=== PATIENT | female | born 2000 | race Caucasian/White ===

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

== ENCOUNTER 2023-12-19 22:45 | Inpatient (IN) | payer OTHER, MEDICAID, SELFPAY ==
[2023-12-19] VITALS (7 sets, daily range): BP systolic 99–121; BP diastolic 56–78; PULSE 135–181; RESP 18–34; TEMP 39.4; O2SAT 97–100
--- NOTE | 2023-12-19 22:59 | DI.RAD.S_ITS ---
PROCEDURE: XR CHEST 1V INDICATIONS: Eval for pneumonia TECHNIQUE: One view of the chest was acquired. COMPARISON: None. FINDINGS: Surgical changes and devices: None. Lungs and pleura: Lungs are clear. No pleural effusions or pneumothorax. Mediastinum: Mediastinal contours appear normal. Heart size is normal. Bones and chest wall: No suspicious bony lesions. Overlying soft tissues appear unremarkable. IMPRESSION: No acute cardiopulmonary abnormality is seen. Approved by: Rafal Chan M.D. on 12/19/2023 at 22:46
[2023-12-19] MEDS: cefTRIAXone 1,000 MG in SODIUM CHLORIDE 0.9% 100 ML 200 MG IV (23:10)
--- NOTE | 2023-12-19 23:12 | ED.GENADULT ---
HPI - General Adult General Chief complaint: Altered Mental Status Stated complaint: voming since thursday, fever Time Seen by Provider: 12/19/23 22:58 Source: patient and family Mode of arrival: Wheelchair Limitations: no limitations History of Present Illness HPI narrative: Patient is a healthy 23-year-old female. She is unimmunized. She was brought in by her father for evaluation of was initially described as vomiting and a fever for the past 7 days. Prior to that she did spend a period of time camping in [facility]. Upon further questioning it turns out that the patient has been having persistent diarrhea and occasional vomiting but the vomiting has not been persistent. The patient denies headache, sore throat, sinus congestion, chest pain, cough, shortness of breath, abdominal pain, urinary symptoms. She does have a skin rash but is unsure when that started. They have been trying medications at home without improvement of symptoms. The father also reports that over the past 24 hours she is become ?less responsive? and more confused Related Data Allergies Allergy/AdvReac Type Severity Reaction Status Date / Time No Known Drug Allergies Allergy Verified 12/19/23 22:53 Review of Systems Review of Systems ROS Unobtainable: All systems reviewed & are unremarkable except as noted in HPI and below Patient History Social History Smoking Status: Never smoker Smoking Status: Never smoker Substance Use Type: does not use Exam Initial Vital Signs Initial Vital Signs: Vital Signs Temperature 102.9 F H 12/19/23 22:53 Pulse Rate 181 H 12/19/23 22:53 Respiratory Rate 24 12/19/23 22:53 Blood Pressure 104/65 12/19/23 22:53 Pulse Oximetry 98 12/19/23 22:53 Oxygen Delivery Method Room Air 12/19/23 22:53 Const General: cooperative, acute distress and ill appearing [facility] Head: normal to inspection and normocephalic Face and sinus: normal facial exam Mouth: No moist mucous membranes and other (Very dry mucous membranes) Chest Chest: No crepitus and No tenderness Resp Effort & Inspection: not labored, no respiratory distress and tachypneic Auscultation: clear to auscultation bilaterally Cardio Rate: tachycardic Rhythm: regular rhythm GI Inspection: normal to inspection and non-distended Palpation: soft Skin Other: Patient with a macular papular rash located on the face and upper chest and abdomen and upper back. No rash intraoral. No rash on the palms of the hands or soles of the feet. There was no urticaria. No surrounding erythema. No pustules or vesicles. Neuro General: patient alert, patient awake and moves all extremities Speech: speech normal Other: Patient is oriented to person and place but is very slow to answer questions. She does follow commands. Extrem General: capillary refill normal Procedures Lumbar Puncture Time Out Performed: Yes Patient Position: upright Skin Prep: Povidone-Iodine 1% Local Anesthetic: lidocaine 1% Amount of anesthesia used (mL): 4 Spinal Needle Gauge: 20G Interspace Used: L3-L4 Fluid Initially Obtained: clear Complications: none Scores GCS Mando coma scale eye opening: Spontaneous [place] coma scale verbal response: Orientated M[place] coma scale motor response: Obey commands [place] coma scale total score: 15 Course Orders Ordered: ED Orders 12/19/23 22:59 XR chest 1V Stat EKG-12 Lead Stat 12/19/23 23:05 Complete Blood Count AUTO DIFF Stat Comprehensive Metabolic Panel Stat Ethanol (ETOH) Stat Lactate (Lactic Acid) Stat Lipase Stat Test Serum,Qual Stat Procalcitonin Stat 12/19/23 23:10 Blood Culture Stat 12/19/23 23:13 Respiratory Panel (Film Array) Stat 12/19/23 23:26 Rubeola Measles IgG Stat 12/19/23 23:49 Rubella Antibody IgG Stat 12/20/23 00:42 GI Panel (Film Array) Stat 12/20/23 01:23 Urinalysis and Microscopic Stat Urine Culture Stat 12/20/23 02:42 Cell Count w Diff CSF Stat Glucose CSF Stat Meningitis Panel (Film Array) Stat Total Protein CSF Stat 12/20/23 02:58 CSF culture Stat Lactated Ringer's (Lactated Ringers) 1,000 mls @ 150 mls/hr IV CONT ZULMA Last Admin: 12/20/23 03:02 Dose: 150 mls/hr Documented By: HNG Discontinued Medications Sodium Chloride (Normal Saline 0.9%) 1,000 mls @ 1,000 mls/hr IV BOLUS ONE Stop: 12/19/23 23:57 Last Infusion: 12/20/23 00:13 Dose: Infused Documented By: Admin: 12/19/23 23:13 Dose: 1,000 mls/hr Documented By: NASH Acetaminophen (Ofirmev) 1,000 mg in 100 mls @ 400 mls/hr IV NOW ONE Stop: 12/19/23 23:12 Last Infusion: 12/19/23 23:28 Dose: Infused Documented By: Admin: 12/19/23 23:13 Dose: 400 mls/hr Documented By: NASH Ceftriaxone Sodium 1,000 mg/ (Sodium Chloride) 100 mls @ 200 mls/hr IV NOW ONE Stop: 12/19/23 22:59 Last Infusion: 12/19/23 23:27 Dose: Infused Documented By: Admin: 12/19/23 23:10 Dose: 200 mls/hr Documented By: GWEN Vancomycin HCl (Vancomycin) 1,000 mg in 200 mls @ 200 mls/hr IV NOW ONE Stop: 12/20/23 00:02 Last Infusion: 12/20/23 00:36 Dose: Infused Documented By: Admin: 12/19/23 23:28 Dose: 200 mls/hr Documented By: GWEN Sodium Chloride (Normal Saline 0.9%) 1,000 mls @ 1,000 mls/hr IV BOLUS ONE Stop: 12/20/23 00:50 Last Infusion: 12/20/23 00:35 Dose: Infused Documented By: Admin: 12/19/23 23:45 Dose: 1,000 mls/hr Documented By: GWEN Lactated Ringer's (Lactated Ringers) 1,000 mls @ 500 mls/hr IV BOLUS ONE Stop: 12/20/23 02:39 Last Infusion: 12/20/23 03:03 Dose: Infused Documented By: Admin: 12/20/23 01:07 Dose: 500 mls/hr Documented By: GWEN Ketorolac Tromethamine (Ketorolac 30 Mg/Ml Vial) 30 mg IV NOW ONE Stop: 12/20/23 02:49 Last Admin: 12/20/23 02:57 Dose: 30 mg Documented By: KENNEDY Ondansetron HCl (Ondansetron 4 Mg/2 Ml Inj) 4 mg IV NOW ONE Stop: 12/19/23 22:59 Last Admin: 12/19/23 23:13 Dose: 4 mg Documented By: NASH Vital Signs Vital signs: Vital Signs - 8 hr 12/19/23 22:53 12/19/23 23:02 12/19/23 23:02 Temperature 102.9 F H Pulse Rate 181 H 174 H Respiratory Rate 24 Blood Pressure 104/65 107/62 Pulse Oximetry 98 98 Oxygen Delivery Method Room Air 12/19/23 23:10 12/19/23 23:10 12/19/23 23:20 Temperature Pulse Rate 160 H Respiratory Rate 34 H Blood Pressure 121/78 117/71 Pulse Oximetry 97 Oxygen Delivery Method 12/19/23 23:30 12/19/23 23:30 12/19/23 23:40 Temperature Pulse Rate 143 H Respiratory Rate 28 H Blood Pressure 115/63 103/59 L Pulse Oximetry 100 Oxygen Delivery Method 12/19/23 23:40 12/19/23 23:50 12/19/23 23:50 Temperature Pulse Rate 136 H 135 H Respiratory Rate 18 22 Blood Pressure 99/56 L Pulse Oximetry 99 99 Oxygen Delivery Method 12/20/23 00:00 12/20/23 00:00 12/20/23 00:10 Temperature Pulse Rate 128 H 128 H Respiratory Rate 25 H 26 H Blood Pressure 102/59 L Pulse Oximetry 100 100 Oxygen Delivery Method 12/20/23 00:10 12/20/23 00:20 12/20/23 00:20 Temperature Pulse Rate 128 H Respiratory Rate 26 H Blood Pressure 99/55 L 91/55 L Pulse Oximetry 99 Oxygen Delivery Method 12/20/23 00:30 12/20/23 00:30 12/20/23 00:40 Temperature Pulse Rate 127 H 128 H Respiratory Rate 25 H 25 H Blood Pressure 90/54 L Pulse Oximetry 100 100 Oxygen Delivery Method 12/20/23 00:40 12/20/23 00:50 12/20/23 00:50 Temperature Pulse Rate 124 H Respiratory Rate 24 Blood Pressure 88/50 L 96/51 L Pulse Oximetry 100 Oxygen Delivery Method 12/20/23 01:00 12/20/23 01:00 12/20/23 01:10 Temperature Pulse Rate 130 H 128 H Respiratory Rate 24 30 H Blood Pressure 98/53 L Pulse Oximetry 100 99 Oxygen Delivery Method Room Air 12/20/23 01:10 12/20/23 01:20 12/20/23 01:20 Temperature Pulse Rate 125 H Respiratory Rate 16 Blood Pressure 93/55 L 90/53 L Pulse Oximetry 100 Oxygen Delivery Method Room Air 12/20/23 01:30 12/20/23 01:30 12/20/23 01:40 Temperature Pulse Rate 125 H 125 H Respiratory Rate 25 H 24 Blood Pressure 94/50 L Pulse Oximetry 100 100 Oxygen Delivery Method 12/20/23 01:40 12/20/23 01:50 12/20/23 01:50 Temperature Pulse Rate 127 H Respiratory Rate 26 H Blood Pressure 86/51 L 91/54 L Pulse Oximetry 100 Oxygen Delivery Method 12/20/23 02:00 12/20/23 02:00 12/20/23 02:10 Temperature Pulse Rate 125 H 126 H Respiratory Rate 7 L 24 Blood Pressure 98/56 L Pulse Oximetry 100 Oxygen Delivery Method 12/20/23 02:10 12/20/23 02:20 12/20/23 02:20 Temperature Pulse Rate 131 H Respiratory Rate 28 H Blood Pressure 98/58 L 91/53 L Pulse Oximetry 100 Oxygen Delivery Method 12/20/23 02:30 12/20/23 02:40 12/20/23 02:48 Temperature 102.4 F H Pulse Rate Respiratory Rate Blood Pressure 99/63 115/63 Pulse Oximetry Oxygen Delivery Method 12/20/23 02:55 12/20/23 02:55 12/20/23 03:00 Temperature Pulse Rate 141 H 140 H Respiratory Rate 18 20 Blood Pressure 112/62 Pulse Oximetry 97 95 Oxygen Delivery Method 12/20/23 03:01 12/20/23 03:01 12/20/23 03:10 Temperature Pulse Rate 139 H 136 H Respiratory Rate 18 31 H Blood Pressure 99/60 Pulse Oximetry 95 95 Oxygen Delivery Method 12/20/23 03:10 12/20/23 03:20 12/20/23 03:20 Temperature Pulse Rate 134 H Respiratory Rate 27 H Blood Pressure 96/54 L 92/55 L Pulse Oximetry 95 Oxygen Delivery Method 12/20/23 03:30 12/20/23 03:30 12/20/23 03:40 Temperature Pulse Rate 138 H 138 H Respiratory Rate 27 H 30 H Blood Pressure 92/54 L Pulse Oximetry 94 96 Oxygen Delivery Method Room Air 12/20/23 03:40 12/20/23 03:45 12/20/23 03:50 Temperature 102.7 F H Pulse Rate Respiratory Rate Blood Pressure 85/48 L 93/52 L Pulse Oximetry Oxygen Delivery Method 12/20/23 03:50 12/20/23 04:00 12/20/23 04:00 Temperature Pulse Rate 149 H 140 H Respiratory Rate 33 H 28 H Blood Pressure 87/50 L Pulse Oximetry 98 96 Oxygen Delivery Method 12/20/23 04:10 12/20/23 04:10 12/20/23 04:20 Temperature Pulse Rate 129 H 129 H Respiratory Rate 23 24 Blood Pressure 88/49 L Pulse Oximetry 95 95 Oxygen Delivery Method 12/20/23 04:20 12/20/23 04:30 12/20/23 04:30 Temperature Pulse Rate 127 H Respiratory Rate 22 Blood Pressure 93/52 L 96/52 L Pulse Oximetry 94 Oxygen Delivery Method 12/20/23 04:40 12/20/23 04:40 12/20/23 04:50 Temperature Pulse Rate 127 H 126 H Respiratory Rate 22 22 Blood Pressure 96/55 L Pulse Oximetry 94 96 Oxygen Delivery Method 12/20/23 04:50 12/20/23 04:51 12/20/23 04:51 Temperature 100.9 F H Pulse Rate 131 H Respiratory Rate 25 H Blood Pressure 79/43 L 87/51 L Pulse Oximetry 97 Oxygen Delivery Method 12/20/23 05:00 12/20/23 05:00 12/20/23 05:10 Temperature Pulse Rate 125 H 125 H Respiratory Rate 22 22 Blood Pressure 90/54 L Pulse Oximetry 96 95 Oxygen Delivery Method 12/20/23 05:10 Temperature Pulse Rate Respiratory Rate Blood Pressure 91/55 L Pulse Oximetry Oxygen Delivery Method Medical Decision Making Lab Data Lab results reviewed: Yes I reviewed the patient's lab results. 12/19/23 23:05 12/19/23 23:05 Labs: Lab Results 12/19/23 12/19/23 12/20/23 Range/Units 23:05 23:13 00:40 WBC 20.1 H (4.5-11.0) X10^3/uL RBC 4.43 (4.0-5.2) X10^6/uL Hgb 9.9 L (12.0-16.0) g/dL Hct 31.1 L (36-46) % MCV 70.1 L (80-100) fL MCH 22.4 L (26-34) PG MCHC 31.9 (30-36) % RDW 18.1 H (11.6-14.8) % Plt Count 235 (150-400) X10^3/uL Neut % (Auto) Not Reportable Lymph % (Auto) Not Reportable [place] % (Auto) Not Reportable Eos % (Auto) Not Reportable Baso % (Auto) Not Reportable Lymph # (Auto) Not Reportable [place] # (Auto) Not Reportable Baso # (Auto) Not Reportable Total Counted 100 Seg Neutrophils % 75.0 H (38-70) % Band Neutrophils % 17.0 H (3-7) % Lymphocytes % (Manual) 6.0 L (25-45) % Monocytes % (Manual) 1.0 L (2-11) % Metamyelocytes % 1.0 H (-0) % Neutrophils # (Manual) 36911 H (7970-4795) /uL RBC Morphology See below Hypochromasia 1+ H Anisocytosis 2+ H Microcytosis 2+ H Sodium 128 L (137-145) mmol/L Potassium 3.3 L (3.4-5.1) mmol/L Chloride 96 L (98-107) mmol/L Carbon Dioxide 13 L (22-32) mmol/L BUN 38 H (7-17) mg/dL Creatinine 1.48 H (0.52-1.04) mg/dL Estimated GFR 51 L (>60) mL/min BUN/Creatinine Ratio 25.7 H (6-22) Glucose 143 H (70-100) mg/dL Lactate 3.3 H (0.7-2.1) mmol/L Calcium 9.4 (8.4-10.2) mg/dL Total Bilirubin 0.7 (0.2-1.3) mg/dL AST 37 H (14-36) IU/L ALT 34 (<35) IU/L Alkaline Phosphatase 79 (38-126) U/L Total Protein 10.1 H (6.3-8.2) g/dL Albumin 4.1 (3.5-5.0) g/dL Globulin 6.0 H (1.7-4.1) g/dL Albumin/Globulin Ratio 0.7 L (1.0-2.8) Lipase 26 (23-300) U/L Procalcitonin 39.5 H (<0.5) ng/mL Serum , Qual Negative (Negative) Urine Color Urine Appearance Urine pH (4.5-8.0) Ur Specific Thur[place] (1.000-1.035) Urine Protein (Negative) Urine Glucose (UA) (Negative) g/dL Urine Ketones (NEGATIVE) Urine Occult Blood (Negative) Urine Nitrate (Negative) Urine Bilirubin (NEGATIVE) Ur Bilirubin Confirm (Negative) Urine Urobilinogen (0.2) E.U./dL Ur Leukocyte Esterase (NEGATIVE) Urine RBC (0-5/HPF) Urine WBC (0-5/HPF) Ur Squamous Epith Cells (0-5/HPF) Ur Transition Epith Cell (0-5/HPF) Amorphous Sediment Urine Bacteria (None) Hyaline Casts (None) Granular Casts (None) Urine Mucus (Negative) Vol Urine Centrifuged CSF Tube Number CSF Volume CSF Appearance (Clear) CSF Color (Colorless) CSF WBC (0-5) MONO/uL CSF RBC RBC /uL CSF Mononuclear WBCs CSF Polynuclear WBCs CSF Glucose (40-70) mg/dL CSF Total Protein (12-60) mg/dL CSF C.neoform/gat PCR (Not Detect) CSF CMV DNA (PCR) (Not Detect) CSF Enterovirus (PCR) (Not Detect) CSF E. coli (PCR) (Not Detect) CSF H. influenzae (PCR) (Not Detect) CSF HSV I (PCR) (Not Detect) CSF HSV II (PCR) (Not Detect) CSF HHV 6 (PCR) (Not Detect) CSF L.monocytogenes PCR (Not Detect) CSF N. meningitidis PCR (Not Detect) CSF Parechovirus (PCR) (Not Detect) CSF S. agalactiae (PCR) (Not Detect) CSF S. pneumoniae (PCR) (Not Detect) CSF VZV (PCR) (Not Detecte) Stl C. cayetanensis PCR Not detected (Not Detect) Stool Rotavirus (PCR) Not detected (Not Detect) Stool Adenovirus (PCR) Not detected (Not Detect) Stool Astrovirus (PCR) Not detected (Not Detect) Stool Cryptosporidium PCR Not detected (Not Detect) Stl E.coli Shiga Tox PCR Not detected (Not Detect) St Sh/Enteroin Ecoli PCR Not detected (Not Detect) Stl Enterotoxigenic E PCR Not detected (Not Detect) Stool EPEC (PCR) Not detected (Not Detect) Stl E. histolytica PCR Not detected (Not Detect) Stool Giardia Lamblia PCR Not detected (Not Detect) Stool Sapovirus (PCR) Not detected (Not Detect) Stl P. shigelloides PCR Not detected (Not Detect) St Y.enterocolitica PCR Not detected (Not Detect) Stool Vibrio (PCR) Not detected (Not Detect) Stl Vibrio cholerae PCR Not detected (Not Detect) Stl Enteroaggr Ecoli PCR Not detected (Not Detect) Stl Norovirus GI/GII PCR Not detected (Not Detect) Ethyl Alcohol < 10 ( - 10) mg/dL Chlamy pneumoniae PCR Not detected (Not Detect) Adenovirus (PCR) Not detected (Not Detect) B.parapertussis DNA PCR Not detected (Not Detecte) Campylobacter (PCR) Not detected (Not Detect) C. difficile Tox (PCR) Not detected (Not Detect) Coronavirus OC43 (PCR) Not detected (Not Detect) Coronavirus HKU1 (PCR) Not detected (Not Detect) Coronavirus 229E (PCR) Not detected (Not Detect) SARS-CoV-2 (PCR) Not detected (Not Detecte) Coronavirus NL63 (PCR) Not detected (Not Detect) Human Metapneumovir PCR Not detected (Not Detect) Influenza Type A (PCR) Not detected (Not Detect) Influenza Type B (PCR) Not detected (Not Detect) M. pneumoniae (PCR) Not detected (Not Detect) Parainfluenza 1 (PCR) Not detected (Not Detect) Parainfluenza 2 (PCR) Not detected (Not Detect) Parainfluenza 3 (PCR) Not detected (Not Detect) Parainfluenza 4 (PCR) Not detected (Not Detect) RSV (PCR) Not detected (Not Detect) Entero/Rhino (PCR) Not detected (Not Detect) Rubella Antibody 0.7 L (>15) IU/mL Salmonella (PCR) Not detected (Not Detect) 12/20/23 12/20/23 12/20/23 Range/Units 01:15 01:20 02:40 WBC (4.5-11.0) X10^3/uL RBC (4.0-5.2) X10^6/uL Hgb (12.0-16.0) g/dL Hct (36-46) % MCV (80-100) fL MCH (26-34) PG MCHC (30-36) % RDW (11.6-14.8) % Plt Count (150-400) X10^3/uL Neut % (Auto) Lymph % (Auto) [place] % (Auto) Eos % (Auto) Baso % (Auto) Lymph # (Auto) [place] # (Auto) Baso # (Auto) Total Counted Seg Neutrophils % (38-70) % Band Neutrophils % (3-7) % Lymphocytes % (Manual) (25-45) % Monocytes % (Manual) (2-11) % Metamyelocytes % (-0) % Neutrophils # (Manual) (6894-6643) /uL RBC Morphology Hypochromasia Anisocytosis Microcytosis Sodium (137-145) mmol/L Potassium (3.4-5.1) mmol/L Chloride (98-107) mmol/L Carbon Dioxide (22-32) mmol/L BUN (7-17) mg/dL Creatinine (0.52-1.04) mg/dL Estimated GFR (>60) mL/min BUN/Creatinine Ratio (6-22) Glucose (70-100) mg/dL Lactate 2.3 H (0.7-2.1) mmol/L Calcium (8.4-10.2) mg/dL Total Bilirubin (0.2-1.3) mg/dL AST (14-36) IU/L ALT (<35) IU/L Alkaline Phosphatase (38-126) U/L Total Protein (6.3-8.2) g/dL Albumin (3.5-5.0) g/dL Globulin (1.7-4.1) g/dL Albumin/Globulin Ratio (1.0-2.8) Lipase (23-300) U/L Procalcitonin (<0.5) ng/mL Serum , Qual (Negative) Urine Color Yellow Urine Appearance Sl cloudy Urine pH 5.5 (4.5-8.0) Ur Specific [place] >=1.030 H (1.000-1.035) Urine Protein 3+ H (Negative) Urine Glucose (UA) Negative (Negative) g/dL Urine Ketones Negative (NEGATIVE) Urine Occult Blood Trace-intact (Negative) Urine Nitrate Negative (Negative) Urine Bilirubin 1+ H (NEGATIVE) Ur Bilirubin Confirm Negative (Negative) Urine Urobilinogen 0.2 (0.2) E.U./dL Ur Leukocyte Esterase Negative (NEGATIVE) Urine RBC 0-1/hpf (0-5/HPF) Urine WBC 0-1/hpf (0-5/HPF) Ur Squamous Epith Cells 0-1 /hpf (0-5/HPF) Ur Transition Epith Cell 0-1/hpf (0-5/HPF) Amorphous Sediment 3+ Urine Bacteria Few (2-10) H (None) Hyaline Casts 0-1/lpf (None) Granular Casts 1-5/lpf (None) Urine Mucus 1+ H (Negative) Vol Urine Centrifuged 10ml (spun) CSF Tube Number 3 CSF Volume 1.5 ml CSF Appearance Clear (Clear) CSF Color Colorless (Colorless) CSF WBC 1.0 (0-5) MONO/uL CSF RBC 3 RBC /uL CSF Mononuclear WBCs TNP CSF Polynuclear WBCs TNP CSF Glucose 62 (40-70) mg/dL CSF Total Protein 37 (12-60) mg/dL CSF C.neoform/gat PCR Not detected (Not Detect) CSF CMV DNA (PCR) Not detected (Not Detect) CSF Enterovirus (PCR) Not detected (Not Detect) CSF E. coli (PCR) Not detected (Not Detect) CSF H. influenzae (PCR) Not detected (Not Detect) CSF HSV I (PCR) Not detected (Not Detect) CSF HSV II (PCR) Not detected (Not Detect) CSF HHV 6 (PCR) Not detected (Not Detect) CSF L.monocytogenes PCR Not detected (Not Detect) CSF N. meningitidis PCR Not detected (Not Detect) CSF Parechovirus (PCR) Not detected (Not Detect) CSF S. agalactiae (PCR) Not detected (Not Detect) CSF S. pneumoniae (PCR) Not detected (Not Detect) CSF VZV (PCR) Not detected (Not Detecte) Stl C. cayetanensis PCR (Not Detect) Stool Rotavirus (PCR) (Not Detect) Stool Adenovirus (PCR) (Not Detect) Stool Astrovirus (PCR) (Not Detect) Stool Cryptosporidium PCR (Not Detect) Stl E.coli Shiga Tox PCR (Not Detect) St Sh/Enteroin Ecoli PCR (Not Detect) Stl Enterotoxigenic E PCR (Not Detect) Stool EPEC (PCR) (Not Detect) Stl E. histolytica PCR (Not Detect) Stool Giardia Lamblia PCR (Not Detect) Stool Sapovirus (PCR) (Not Detect) Stl P. shigelloides PCR (Not Detect) St Y.enterocolitica PCR (Not Detect) Stool Vibrio (PCR) (Not Detect) Stl Vibrio cholerae PCR (Not Detect) Stl Enteroaggr Ecoli PCR (Not Detect) Stl Norovirus GI/GII PCR (Not Detect) Ethyl Alcohol ( - 10) mg/dL Chlamy pneumoniae PCR (Not Detect) Adenovirus (PCR) (Not Detect) B.parapertussis DNA PCR (Not Detecte) Campylobacter (PCR) (Not Detect) C. difficile Tox (PCR) (Not Detect) Coronavirus OC43 (PCR) (Not Detect) Coronavirus HKU1 (PCR) (Not Detect) Coronavirus 229E (PCR) (Not Detect) SARS-CoV-2 (PCR) (Not Detecte) Coronavirus NL63 (PCR) (Not Detect) Human Metapneumovir PCR (Not Detect) Influenza Type A (PCR) (Not Detect) Influenza Type B (PCR) (Not Detect) M. pneumoniae (PCR) (Not Detect) Parainfluenza 1 (PCR) (Not Detect) Parainfluenza 2 (PCR) (Not Detect) Parainfluenza 3 (PCR) (Not Detect) Parainfluenza 4 (PCR) (Not Detect) RSV (PCR) (Not Detect) Entero/Rhino (PCR) (Not Detect) Rubella Antibody (>15) IU/mL Salmonella (PCR) (Not Detect) Imaging Data Chest x-ray: Radiologist's Impression: PROCEDURE: XR CHEST 1V INDICATIONS: Eval for pneumonia TECHNIQUE: One view of the chest was acquired. COMPARISON: None. FINDINGS: Surgical changes and devices: None. Lungs and pleura: Lungs are clear. No pleural effusions or pneumothorax. Mediastinum: Mediastinal contours appear normal. Heart size is normal. Bones and chest wall: No suspicious bony lesions. Overlying soft tissues appear unremarkable. IMPRESSION: No acute cardiopulmonary abnormality is seen. ECG Data Attestation: I personally reviewed and interpreted this ECG as follows: Interpretation: Sinus tachycardia Ventricular rate of 148 Normal axis Normal QRS Normal QTC No ST T wave changes MDM Narrative Medical decision making narrative: Patient looked very poor upon arrival. She was obviously confused upon arrival. Has a rash on her face and upper chest. She really has no specific complaints upon questioning however it appears that she has had persistent diarrhea and some vomiting for the past week or so. Her chest x-ray does not show signs of pneumonia. Respiratory panel was negative. She was no abdominal pain so my concern for an intra-abdominal surgical issue is low. Her urinalysis is not consistent with UTI. Her stool sample show no infections. Had a discussion with her and her father regarding the concerns about meningitis given her unimmunized status. The lumbar puncture/CSF is not consistent with meningitis. Considered other etiologies such as measles given the rash that she was having in the fevers however she does not have other specific symptoms such as other your eye symptoms/conjunctivitis. She was given antibiotics upon arrival. Fluids were administered upon arrival. Her heart rate improved. Her mentation improved. She does have an elevation in her creatinine and I suspect a significant degree of dehydration. She was tolerating oral intake. After fluids and antibiotics and time she remained febrile but her mentation improved. Blood pressure has been somewhat soft with a systolic blood pressures in the 80s and 90s but her mean arterial pressures have been in the mid 60s. We will hold on pressors for now given that she was clinically improving. Critical Care Time Critical Care Time Critical Care Time: Yes Total Critical Care Time: 65 Attestation: The high probability of a clinically significant, sudden or life threatening deterioration of the [neurologic, cardiovascular, respiratory] system(s) required my full and direct attention, intervention and personal management. The aggregate critical care time was [65] minutes. This time is in addition to time spent performing reported procedures but includes the following: [x] Data Review and interpretation [x] Patient assessment and monitoring of vital signs [x] Documentation [x] Medication orders and management Discharge Plan Departure Patient Disposition: Admitted As Inpatient Clinical Impression: Fever of unknown origin, Rash, Dehydration, Acute kidney injury, Tachycardia Admit Date/Time: 12/20/23 05:13 Admit Provider: Khanh Tam
[2023-12-19] MEDS: SODIUM CHLORIDE 0.9% 1,000 ML 1000 ML IV ×2 (23:13→23:45)
[2023-12-19] MEDS: ONDANSETRON 4 MG/2 ML INJ IV (23:13)
[2023-12-19] MEDS: ACETAMINOPHEN IV 1,000 MG/100 ML VIAL 400 MG IV (23:13)
--- NOTE | 2023-12-19 23:25 | EKG_ITS ---
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
[2023-12-19] MEDS: VANCOMYCIN 1,000 MG/200 ML PIGGYBACK 200 MG IV (23:28)
[2023-12-19 23:32] LABS: Hematocrit 31.1 % (36-46); Hemoglobin 9.9 g/dL (12.0-16.0); Mean Corpuscular HGB Conc 31.9 % (30-36); Mean Corpuscular Hemoglobin 22.4 PG (26-34); Mean Corpuscular Volume 70.1 fL (80-100); Platelet Count 235 X10^3/uL (150-400); Pregnancy Test Serum,Qual Negative (Negative); Red Blood Cell Count 4.43 X10^6/uL (4.0-5.2); Red Cell Distribution Width 18.1 % (11.6-14.8); White Blood Cell Count 20.1 X10^3/uL (4.5-11.0)
[2023-12-19 23:33] LABS: Add Manual Diff / Slide Review YES
[2023-12-19 23:35] LABS: Alanine Aminotransferase 34 IU/L (<35); Albumin 4.1 g/dL (3.5-5.0); Albumin Globulin Ratio 0.7 (1.0-2.8); Alkaline Phosphatase 79 U/L (38-126); Aspartate Aminotransferase 37 IU/L (14-36); BUN Creatinine Ratio 25.7 (6-22); Bilirubin Total 0.7 mg/dL (0.2-1.3); Blood Urea Nitrogen 38 mg/dL (7-17); Calcium 9.4 mg/dL (8.4-10.2); Carbon Dioxide 13 mmol/L (22-32); Chloride 96 mmol/L (98-107); Estimated Glomerular Filt Rate 51 mL/min (>60); Ethanol (ETOH) < 10 mg/dL; Glucose 143 mg/dL (70-100); HEMOLYSIS < 15 (0-50); Lactate (Lactic Acid) 3.3 mmol/L (0.7-2.1); Lipase 26 U/L (23-300); Potassium 3.3 mmol/L (3.4-5.1); Sodium 128 mmol/L (137-145); Total Protein 10.1 g/dL (6.3-8.2)
[2023-12-19 23:50] LABS: Procalcitonin 39.5 ng/mL (<0.5)
[2023-12-20] VITALS (203 sets, daily range): BP systolic 72–123; BP diastolic 38–63; PULSE 119–156; RESP 7–42; TEMP 38.1–39.9; O2SAT 79–100; BMI 24.4
[2023-12-20] LABS: Anisocytosis 2+; Hypochromasia 1+; Microcytosis 2+; Neutrophils Absolute Manual 18492 /uL (3000-5900); Total Cells Counted 100
[2023-12-20 00:09] LABS: Adenovirus Not Detected (Not Detect); B. parapertussis Not Detected (Not Detecte); Bordetella pertussis Not Detected (Not Detect); Chlamydophila pneumoniae Not Detected (Not Detect); Coronavirus 229E Not Detected (Not Detect); Coronavirus HKU1 Not Detected (Not Detect); Coronavirus NL 63 Not Detected (Not Detect); Coronavirus OC43 Not Detected (Not Detect); Human Metapneumovirus Not Detected (Not Detect); Human Rhinovirus/Enterovirus Not Detected (Not Detect); Influenza A Not Detected (Not Detect); Influenza B Not Detected (Not Detect); Mycoplasma pneumoniae Not Detected (Not Detect); Parainfluenza Virus 1 Not Detected (Not Detect); Parainfluenza Virus 2 Not Detected (Not Detect); Parainfluenza Virus 3 Not Detected (Not Detect); Parainfluenza Virus 4 Not Detected (Not Detect); Respiratory Syncytial Virus Not Detected (Not Detect); SARS- CoV-2 Not Detected (Not Detecte)
[2023-12-20 00:49] LABS: Reflexed Lactate in 2 Hours Y
[2023-12-20] MEDS: LACTATED RINGERS 1,000 ML 500 ML IV (01:07)
[2023-12-20 01:16] LABS: Rubella Antibody IgG 0.7 IU/mL (>15)
[2023-12-20 01:32] LABS: Appearance Urine UA SL CLOUDY; Bilirubin Urine UA 1+ (NEGATIVE); Color Urine UA YELLOW; Glucose Urine UA NEGATIVE (Negative); Ketones Urine UA NEGATIVE (NEGATIVE); Leukocyte Esterase Urine UA NEGATIVE (NEGATIVE); Nitrite Urine UA NEGATIVE (Negative); Occult Blood Urine UA TRACE-INTACT (Negative); Protein Urine UA 3+ (Negative); Specific Gravity Urine UA >=1.030 (1.000-1.035); Urobilinogen Urine UA 0.2 E.U./dL (0.2)
[2023-12-20 01:34] LABS: pH Urine UA 5.5 (4.5-8.0)
[2023-12-20 01:35] LABS: Ictotest Urine Negative (Negative); RBC Urine 0-1/HPF (0-5/HPF); Urine Volume 10mL (spun)
[2023-12-20 01:36] LABS: Bacteria Urine Few (2-10); WBC Urine 0-1/HPF (0-5/HPF)
[2023-12-20 01:37] LABS: Amorphous Sediment Urine 3+; Granular Casts Urine 1-5/LPF; Mucus Urine 1+ (Negative); Squamous Epithelial Cell Urine 0-1 /HPF (0-5/HPF); Transitional Epi Cells Urine 0-1/HPF (0-5/HPF)
[2023-12-20 01:39] LABS: Hyaline Casts Urine 0-1/LPF
[2023-12-20 01:51] LABS: Lactate 2HR (Lactic Acid Rflx) 2.3 mmol/L (0.7-2.1)
[2023-12-20 02:00] LABS: Adenovirus F 40/41 Not Detected (Not Detect); Astrovirus Not Detected (Not Detect); Campylobacter Not Detected (Not Detect); Clostridium difficile toxin AB Not Detected (Not Detect); Cryptosporidium Not Detected (Not Detect); Cyclospora cayetanensis Not Detected (Not Detect); Entamoeba histolytica Not Detected (Not Detect); Enteroaggregative E.coli Not Detected (Not Detect); Enteropathogenic E.coli Not Detected (Not Detect); Enterotoxigenic E.coli It/st Not Detected (Not Detect); Giardia lamblia Not Detected (Not Detect); Norovirus GI/GII Not Detected (Not Detect); Plesiomonsa shigelloides Not Detected (Not Detect); Rotavirus A Not Detected (Not Detect); Salmonella Not Detected (Not Detect); Sapovirus Not Detected (Not Detect); Shiga-like toxin-prod E.coli Not Detected (Not Detect); Shigella/Enteroinvasive E.coli Not Detected (Not Detect); Vibrio Not Detected (Not Detect); Vibrio cholerae Not Detected (Not Detect); Yersinia enterocolitica Not Detected (Not Detect)
[2023-12-20] MEDS: KETOROLAC 30 MG/ML VIAL IV (02:57)
[2023-12-20] MEDS: LACTATED RINGERS 1,000 ML 150 ML IV (03:02)
[2023-12-20 03:19] LABS: Appearance CSF Clear (Clear); CSF Tube Number 3; CSF Tube Volume 1.5 mL; Color CSF Colorless (Colorless); Red Blood Cell CSF 3 RBC /uL
[2023-12-20 03:20] LABS: Glucose CSF 62 mg/dL (40-70); Total Protein CSF 37 mg/dL (12-60)
[2023-12-20 04:12] LABS: Cryptococcus neoformans/gattii Not Detected (Not Detect); Enterovirus Not Detected (Not Detect); Escherichia coli K1 Not Detected (Not Detect); Haemophilus influenzae Not Detected (Not Detect); Herpes simplex virus 1 Not Detected (Not Detect); Herpes simplex virus 2 Not Detected (Not Detect); Human herpesvirus 6 Not Detected (Not Detect); Human parechovirus Not Detected (Not Detect); Listeria monocytogenes Not Detected (Not Detect); Neisseria meningitidis Not Detected (Not Detect); Streptococcus agalactiae Not Detected (Not Detect); Streptococcus pneumoniae Not Detected (Not Detect); Varicella Zoster Virus Not Detected (Not Detecte)
[2023-12-20 07:22] LABS: Creatine Kinase 254 U/L (30-135)
--- NOTE | 2023-12-20 07:43 | P.HP_ITS ---
History of Present Illness History of Present Illness Date Patient Seen: 12/20/23 Chief complaint: voming since thursday, fever Narrative: 23 y/o with PMH of Mixed Connective Tissue Disease, presented to ED dehydrated, with YING, lekocytosis, maculopapular rash, hypotensive and tachycardic after she became confused and developed diarrhea. Last week she took a trip to [facility] and rash appeared few days ago. Extensive ED workup, including LP, non- revealing. Stool studies, viral panel, CXR, UA all WNR. She complained on Rt elbow tenderness and swelling on admission and dry throat.She also has a lot of dental cavities. Started on antibiotics and IVFs and admitted to ICU [facility] Medical History (Updated 12/20/23 @ 07:56 by Khanh Manzanares MD) Mixed connective tissue disease Social History Smoking Status: Never smoker Meds Home Medications and Allergies Allergies Allergy/AdvReac Type Severity Reaction Status Date / Time No Known Drug Allergies Allergy Verified 12/19/23 22:53 Review of Systems Review of Systems Narrative: Patient was not very good historian, likely due to encephalopathy She complained on dry throat, right elbow swelling and tenderness, rash, diarrhea Exam Vital Signs (past 8 hours): - 12/19/23 23:50 12/19/23 23:50 12/20/23 00:00 Temperature Pulse Rate 135 H 128 H Respiratory Rate 22 25 H Blood Pressure 99/56 L Pulse Oximetry 99 100 Oxygen Delivery Method 12/20/23 00:00 12/20/23 00:10 12/20/23 00:10 Temperature Pulse Rate 128 H Respiratory Rate 26 H Blood Pressure 102/59 L 99/55 L Pulse Oximetry 100 Oxygen Delivery Method 12/20/23 00:20 12/20/23 00:20 12/20/23 00:30 Temperature Pulse Rate 128 H 127 H Respiratory Rate 26 H 25 H Blood Pressure 91/55 L Pulse Oximetry 99 100 Oxygen Delivery Method 12/20/23 00:30 12/20/23 00:40 12/20/23 00:40 Temperature Pulse Rate 128 H Respiratory Rate 25 H Blood Pressure 90/54 L 88/50 L Pulse Oximetry 100 Oxygen Delivery Method 12/20/23 00:50 12/20/23 00:50 12/20/23 01:00 Temperature Pulse Rate 124 H 130 H Respiratory Rate 24 24 Blood Pressure 96/51 L Pulse Oximetry 100 100 Oxygen Delivery Method 12/20/23 01:00 12/20/23 01:10 12/20/23 01:10 Temperature Pulse Rate 128 H Respiratory Rate 30 H Blood Pressure 98/53 L 93/55 L Pulse Oximetry 99 Oxygen Delivery Method Room Air 12/20/23 01:20 12/20/23 01:20 12/20/23 01:30 Temperature Pulse Rate 125 H 125 H Respiratory Rate 16 25 H Blood Pressure 90/53 L Pulse Oximetry 100 100 Oxygen Delivery Method Room Air 12/20/23 01:30 12/20/23 01:40 12/20/23 01:40 Temperature Pulse Rate 125 H Respiratory Rate 24 Blood Pressure 94/50 L 86/51 L Pulse Oximetry 100 Oxygen Delivery Method 12/20/23 01:50 12/20/23 01:50 12/20/23 02:00 Temperature Pulse Rate 127 H 125 H Respiratory Rate 26 H 7 L Blood Pressure 91/54 L Pulse Oximetry 100 100 Oxygen Delivery Method 12/20/23 02:00 12/20/23 02:10 12/20/23 02:10 Temperature Pulse Rate 126 H Respiratory Rate 24 Blood Pressure 98/56 L 98/58 L Pulse Oximetry Oxygen Delivery Method 12/20/23 02:20 12/20/23 02:20 12/20/23 02:30 Temperature Pulse Rate 131 H Respiratory Rate 28 H Blood Pressure 91/53 L 99/63 Pulse Oximetry 100 Oxygen Delivery Method 12/20/23 02:40 12/20/23 02:48 12/20/23 02:55 Temperature 102.4 F H Pulse Rate 141 H Respiratory Rate 18 Blood Pressure 115/63 Pulse Oximetry 97 Oxygen Delivery Method 12/20/23 02:55 12/20/23 03:00 12/20/23 03:01 Temperature Pulse Rate 140 H Respiratory Rate 20 Blood Pressure 112/62 99/60 Pulse Oximetry 95 Oxygen Delivery Method 12/20/23 03:01 12/20/23 03:10 12/20/23 03:10 Temperature Pulse Rate 139 H 136 H Respiratory Rate 18 31 H Blood Pressure 96/54 L Pulse Oximetry 95 95 Oxygen Delivery Method 12/20/23 03:20 12/20/23 03:20 12/20/23 03:30 Temperature Pulse Rate 134 H 138 H Respiratory Rate 27 H 27 H Blood Pressure 92/55 L Pulse Oximetry 95 94 Oxygen Delivery Method Room Air 12/20/23 03:30 12/20/23 03:40 12/20/23 03:40 Temperature Pulse Rate 138 H Respiratory Rate 30 H Blood Pressure 92/54 L 85/48 L Pulse Oximetry 96 Oxygen Delivery Method 12/20/23 03:45 12/20/23 03:50 12/20/23 03:50 Temperature 102.7 F H Pulse Rate 149 H Respiratory Rate 33 H Blood Pressure 93/52 L Pulse Oximetry 98 Oxygen Delivery Method 12/20/23 04:00 12/20/23 04:00 12/20/23 04:10 Temperature Pulse Rate 140 H 129 H Respiratory Rate 28 H 23 Blood Pressure 87/50 L Pulse Oximetry 96 95 Oxygen Delivery Method 12/20/23 04:10 12/20/23 04:20 12/20/23 04:20 Temperature Pulse Rate 129 H Respiratory Rate 24 Blood Pressure 88/49 L 93/52 L Pulse Oximetry 95 Oxygen Delivery Method 12/20/23 04:30 12/20/23 04:30 12/20/23 04:40 Temperature Pulse Rate 127 H Respiratory Rate 22 Blood Pressure 96/52 L 96/55 L Pulse Oximetry 94 Oxygen Delivery Method 12/20/23 04:40 12/20/23 04:50 12/20/23 04:50 Temperature Pulse Rate 127 H 126 H Respiratory Rate 22 22 Blood Pressure 79/43 L Pulse Oximetry 94 96 Oxygen Delivery Method 12/20/23 04:51 12/20/23 04:51 12/20/23 05:00 Temperature 100.9 F H Pulse Rate 131 H 125 H Respiratory Rate 25 H 22 Blood Pressure 87/51 L Pulse Oximetry 97 96 Oxygen Delivery Method 12/20/23 05:00 12/20/23 05:10 12/20/23 05:10 Temperature Pulse Rate 125 H Respiratory Rate 22 Blood Pressure 90/54 L 91/55 L Pulse Oximetry 95 Oxygen Delivery Method 12/20/23 05:20 12/20/23 05:20 12/20/23 05:30 Temperature Pulse Rate 128 H 126 H Respiratory Rate 21 21 Blood Pressure 89/50 L Pulse Oximetry 96 95 Oxygen Delivery Method 12/20/23 05:30 12/20/23 05:40 12/20/23 05:40 Temperature Pulse Rate 128 H Respiratory Rate 22 Blood Pressure 92/50 L 88/53 L Pulse Oximetry 95 Oxygen Delivery Method 12/20/23 05:50 12/20/23 05:50 12/20/23 05:52 Temperature Pulse Rate 129 H 130 H Respiratory Rate 23 25 H Blood Pressure 76/40 L Pulse Oximetry 96 96 Oxygen Delivery Method 12/20/23 05:52 12/20/23 06:00 12/20/23 06:00 Temperature Pulse Rate 128 H Respiratory Rate 23 Blood Pressure 81/48 L 75/40 L Pulse Oximetry 96 Oxygen Delivery Method 12/20/23 06:09 12/20/23 06:10 12/20/23 06:10 Temperature Pulse Rate 130 H 130 H Respiratory Rate 25 H 24 Blood Pressure 79/47 L Pulse Oximetry 96 96 Oxygen Delivery Method 12/20/23 06:12 12/20/23 06:12 12/20/23 06:20 Temperature Pulse Rate 130 H Respiratory Rate 24 Blood Pressure 80/46 L 104/55 L Pulse Oximetry 96 Oxygen Delivery Method 12/20/23 06:20 12/20/23 06:30 12/20/23 06:30 Temperature Pulse Rate 150 H 136 H Respiratory Rate 18 31 H Blood Pressure 89/53 L Pulse Oximetry 95 95 Oxygen Delivery Method Oxygen Delivery Method Room Air Const Other: in no distress, father at bedside HENMT Other: normocephalic Oropharynx dry but not erythematous Eyes Other: eomi, w/o conjuctivitis Neck Other: supple Resp Other: poor respiratory effort Cardio Other: tachycardic, regular GI Other: abdomen soft, not tender, not distended Skin Other: maculopapular rash on trunk Neuro Other: w/o deficits Extrem Other: mild swelling and tenderness of Rt elbow with ROMs Psych Other: encephalopathic Objective Labs 12/19/23 23:05 12/19/23 23:05 Labs: Laboratory Results - last 24 hr 12/19/23 12/19/23 12/19/23 23:00 23:05 23:13 WBC 20.1 H RBC 4.43 Hgb 9.9 L Hct 31.1 L MCV 70.1 L MCH 22.4 L MCHC 31.9 RDW 18.1 H Plt Count 235 Neut % (Auto) Not Reportable Lymph % (Auto) Not Reportable Sabine % (Auto) Not Reportable Eos % (Auto) Not Reportable Baso % (Auto) Not Reportable Lymph # (Auto) Not Reportable Sabine # (Auto) Not Reportable Baso # (Auto) Not Reportable Total Counted 100 Seg Neutrophils % 75.0 H Band Neutrophils % 17.0 H Lymphocytes % (Manual) 6.0 L Monocytes % (Manual) 1.0 L Metamyelocytes % 1.0 H Neutrophils # (Manual) 56032 H RBC Morphology See below Hypochromasia 1+ H Anisocytosis 2+ H Microcytosis 2+ H Sodium 128 L Potassium 3.3 L Chloride 96 L Carbon Dioxide 13 L BUN 38 H Creatinine 1.48 H Estimated GFR 51 L BUN/Creatinine Ratio 25.7 H Glucose 143 H Lactate 3.3 H Calcium 9.4 Total Bilirubin 0.7 AST 37 H ALT 34 Alkaline Phosphatase 79 Total Creatine Kinase 254 H Total Protein 10.1 H Albumin 4.1 Globulin 6.0 H Albumin/Globulin Ratio 0.7 L Lipase 26 Procalcitonin 39.5 H Serum , Qual Negative Urine Color Urine Appearance Urine pH Ur Specific Chauncey Urine Protein Urine Glucose (UA) Urine Ketones Urine Occult Blood Urine Nitrate Urine Bilirubin Ur Bilirubin Confirm Urine Urobilinogen Ur Leukocyte Esterase Urine RBC Urine WBC Ur Squamous Epith Cells Ur Transition Epith Cell Amorphous Sediment Urine Bacteria Hyaline Casts Granular Casts Urine Mucus Vol Urine Centrifuged CSF Tube Number CSF Volume CSF Appearance CSF Color CSF WBC CSF RBC CSF Mononuclear WBCs CSF Polynuclear WBCs CSF Glucose CSF Total Protein CSF C.neoform/gat PCR CSF CMV DNA (PCR) CSF Enterovirus (PCR) CSF E. coli (PCR) CSF H. influenzae (PCR) CSF HSV I (PCR) CSF HSV II (PCR) CSF HHV 6 (PCR) CSF L.monocytogenes PCR CSF N. meningitidis PCR CSF Parechovirus (PCR) CSF S. agalactiae (PCR) CSF S. pneumoniae (PCR) CSF VZV (PCR) Stl C. cayetanensis PCR Stool Rotavirus (PCR) Stool Adenovirus (PCR) Stool Astrovirus (PCR) Stool Cryptosporidium PCR Stl E.coli Shiga Tox PCR St Sh/Enteroin Ecoli PCR Stl Enterotoxigenic E PCR Stool EPEC (PCR) Stl E. histolytica PCR Stool Giardia Lamblia PCR Stool Sapovirus (PCR) Stl P. shigelloides PCR St Y.enterocolitica PCR Stool Vibrio (PCR) Stl Vibrio cholerae PCR Stl Enteroaggr Ecoli PCR Stl Norovirus GI/GII PCR Ethyl Alcohol < 10 Chlamy pneumoniae PCR Not detected Adenovirus (PCR) Not detected B.parapertussis DNA PCR Not detected Campylobacter (PCR) C. difficile Tox (PCR) Coronavirus OC43 (PCR) Not detected Coronavirus HKU1 (PCR) Not detected Coronavirus 229E (PCR) Not detected SARS-CoV-2 (PCR) Not detected Coronavirus NL63 (PCR) Not detected Human Metapneumovir PCR Not detected Influenza Type A (PCR) Not detected Influenza Type B (PCR) Not detected M. pneumoniae (PCR) Not detected Parainfluenza 1 (PCR) Not detected Parainfluenza 2 (PCR) Not detected Parainfluenza 3 (PCR) Not detected Parainfluenza 4 (PCR) Not detected RSV (PCR) Not detected Entero/Rhino (PCR) Not detected Rubella Antibody 0.7 L Salmonella (PCR) 12/20/23 12/20/23 12/20/23 00:40 01:15 01:20 WBC RBC Hgb Hct MCV MCH MCHC RDW Plt Count Neut % (Auto) Lymph % (Auto) Sabine % (Auto) Eos % (Auto) Baso % (Auto) Lymph # (Auto) Sabine # (Auto) Baso # (Auto) Total Counted Seg Neutrophils % Band Neutrophils % Lymphocytes % (Manual) Monocytes % (Manual) Metamyelocytes % Neutrophils # (Manual) RBC Morphology Hypochromasia Anisocytosis Microcytosis Sodium Potassium Chloride Carbon Dioxide BUN Creatinine Estimated GFR BUN/Creatinine Ratio Glucose Lactate 2.3 H Calcium Total Bilirubin AST ALT Alkaline Phosphatase Total Creatine Kinase Total Protein Albumin Globulin Albumin/Globulin Ratio Lipase Procalcitonin Serum , Qual Urine Color Yellow Urine Appearance Sl cloudy Urine pH 5.5 Ur Specific Chauncey >=1.030 H Urine Protein 3+ H Urine Glucose (UA) Negative Urine Ketones Negative Urine Occult Blood Trace-intact Urine Nitrate Negative Urine Bilirubin 1+ H Ur Bilirubin Confirm Negative Urine Urobilinogen 0.2 Ur Leukocyte Esterase Negative Urine RBC 0-1/hpf Urine WBC 0-1/hpf Ur Squamous Epith Cells 0-1 /hpf Ur Transition Epith Cell 0-1/hpf Amorphous Sediment 3+ Urine Bacteria Few (2-10) H Hyaline Casts 0-1/lpf Granular Casts 1-5/lpf Urine Mucus 1+ H Vol Urine Centrifuged 10ml (spun) CSF Tube Number CSF Volume CSF Appearance CSF Color CSF WBC CSF RBC CSF Mononuclear WBCs CSF Polynuclear WBCs CSF Glucose CSF Total Protein CSF C.neoform/gat PCR CSF CMV DNA (PCR) CSF Enterovirus (PCR) CSF E. coli (PCR) CSF H. influenzae (PCR) CSF HSV I (PCR) CSF HSV II (PCR) CSF HHV 6 (PCR) CSF L.monocytogenes PCR CSF N. meningitidis PCR CSF Parechovirus (PCR) CSF S. agalactiae (PCR) CSF S. pneumoniae (PCR) CSF VZV (PCR) Stl C. cayetanensis PCR Not detected Stool Rotavirus (PCR) Not detected Stool Adenovirus (PCR) Not detected Stool Astrovirus (PCR) Not detected Stool Cryptosporidium PCR Not detected Stl E.coli Shiga Tox PCR Not detected St Sh/Enteroin Ecoli PCR Not detected Stl Enterotoxigenic E PCR Not detected Stool EPEC (PCR) Not detected Stl E. histolytica PCR Not detected Stool Giardia Lamblia PCR Not detected Stool Sapovirus (PCR) Not detected Stl P. shigelloides PCR Not detected St Y.enterocolitica PCR Not detected Stool Vibrio (PCR) Not detected Stl Vibrio cholerae PCR Not detected Stl Enteroaggr Ecoli PCR Not detected Stl Norovirus GI/GII PCR Not detected Ethyl Alcohol Chlamy pneumoniae PCR Adenovirus (PCR) B.parapertussis DNA PCR Campylobacter (PCR) Not detected C. difficile Tox (PCR) Not detected Coronavirus OC43 (PCR) Coronavirus HKU1 (PCR) Coronavirus 229E (PCR) SARS-CoV-2 (PCR) Coronavirus NL63 (PCR) Human Metapneumovir PCR Influenza Type A (PCR) Influenza Type B (PCR) M. pneumoniae (PCR) Parainfluenza 1 (PCR) Parainfluenza 2 (PCR) Parainfluenza 3 (PCR) Parainfluenza 4 (PCR) RSV (PCR) Entero/Rhino (PCR) Rubella Antibody Salmonella (PCR) Not detected 12/20/23 02:40 WBC RBC Hgb Hct MCV MCH MCHC RDW Plt Count Neut % (Auto) Lymph % (Auto) Sabine % (Auto) Eos % (Auto) Baso % (Auto) Lymph # (Auto) Sabine # (Auto) Baso # (Auto) Total Counted Seg Neutrophils % Band Neutrophils % Lymphocytes % (Manual) Monocytes % (Manual) Metamyelocytes % Neutrophils # (Manual) RBC Morphology Hypochromasia Anisocytosis Microcytosis Sodium Potassium Chloride Carbon Dioxide BUN Creatinine Estimated GFR BUN/Creatinine Ratio Glucose Lactate Calcium Total Bilirubin AST ALT Alkaline Phosphatase Total Creatine Kinase Total Protein Albumin Globulin Albumin/Globulin Ratio Lipase Procalcitonin Serum , Qual Urine Color Urine Appearance Urine pH Ur Specific Chauncey Urine Protein Urine Glucose (UA) Urine Ketones Urine Occult Blood Urine Nitrate Urine Bilirubin Ur Bilirubin Confirm Urine Urobilinogen Ur Leukocyte Esterase Urine RBC Urine WBC Ur Squamous Epith Cells Ur Transition Epith Cell Amorphous Sediment Urine Bacteria Hyaline Casts Granular Casts Urine Mucus Vol Urine Centrifuged CSF Tube Number 3 CSF Volume 1.5 ml CSF Appearance Clear CSF Color Colorless CSF WBC 1.0 CSF RBC 3 CSF Mononuclear WBCs TNP CSF Polynuclear WBCs TNP CSF Glucose 62 CSF Total Protein 37 CSF C.neoform/gat PCR Not detected CSF CMV DNA (PCR) Not detected CSF Enterovirus (PCR) Not detected CSF E. coli (PCR) Not detected CSF H. influenzae (PCR) Not detected CSF HSV I (PCR) Not detected CSF HSV II (PCR) Not detected CSF HHV 6 (PCR) Not detected CSF L.monocytogenes PCR Not detected CSF N. meningitidis PCR Not detected CSF Parechovirus (PCR) Not detected CSF S. agalactiae (PCR) Not detected CSF S. pneumoniae (PCR) Not detected CSF VZV (PCR) Not detected Stl C. cayetanensis PCR Stool Rotavirus (PCR) Stool Adenovirus (PCR) Stool Astrovirus (PCR) Stool Cryptosporidium PCR Stl E.coli Shiga Tox PCR St Sh/Enteroin Ecoli PCR Stl Enterotoxigenic E PCR Stool EPEC (PCR) Stl E. histolytica PCR Stool Giardia Lamblia PCR Stool Sapovirus (PCR) Stl P. shigelloides PCR St Y.enterocolitica PCR Stool Vibrio (PCR) Stl Vibrio cholerae PCR Stl Enteroaggr Ecoli PCR Stl Norovirus GI/GII PCR Ethyl Alcohol Chlamy pneumoniae PCR Adenovirus (PCR) B.parapertussis DNA PCR Campylobacter (PCR) C. difficile Tox (PCR) Coronavirus OC43 (PCR) Coronavirus HKU1 (PCR) Coronavirus 229E (PCR) SARS-CoV-2 (PCR) Coronavirus NL63 (PCR) Human Metapneumovir PCR Influenza Type A (PCR) Influenza Type B (PCR) M. pneumoniae (PCR) Parainfluenza 1 (PCR) Parainfluenza 2 (PCR) Parainfluenza 3 (PCR) Parainfluenza 4 (PCR) RSV (PCR) Entero/Rhino (PCR) Rubella Antibody Salmonella (PCR) Assessment & Plan Assessment and plan (1) Sepsis: Status: Acute (2) Fever of unknown origin: Status: Acute (3) Acute kidney injury: Status: Acute (4) Mixed connective tissue disease: Status: Acute Assessment & Plan narrative: Suspected Sepsis - IVFs, empiric abx - Vancomycin, Rocephin - potential source dental cavities or strep throat as she complained on dry and tender throat - cultures pending - Xray Rt elbow - complains on swelling and tenderness in the absence of recent injuries - ICU admission, pressors prn YING - IVFs Mixed Connective Tissue Disease - apparently w/o recent flares - in the past had treatment with prednisone DVT prophylaxis -SCDs Time-Based Coding :: [TOTAL MINUTES] spent with patient and on the chart (including review of chart, obtaining history, exam, reviewing outside data, placing orders, documenting exam and treatment plan, and counseling patient) on [DATE].
--- NOTE | 2023-12-20 08:00 | DI.RAD.S_ITS ---
PROCEDURE: XR ELBOW RT 2V INDICATIONS: swelling, pain TECHNIQUE: 3 views of the elbow were acquired. COMPARISON: None. FINDINGS: Bones: Limited exam secondary to positioning. No fractures or dislocations. No suspicious bony lesions. Soft tissues: Possible small elbow joint effusion. No suspicious soft tissue calcifications. Antecubital IV in place. IMPRESSION: Limited exam secondary to positioning. Possible small joint effusion. No definite fracture seen. Recommend follow-up radiograph in 7-10 days to assess for occult fracture. Dictated by: Stew Dia M.D. on 12/20/2023 at 8:46 Approved by: Stew Dia M.D. on 12/20/2023 at 8:47
--- NOTE | 2023-12-20 08:04 | PC.NURSE ---
This RN assessed patient and noted patient to have a 103.1 temperature and called and informed Dr. Rogers which I got an order for IV Tylenol and additional set of blood cultures verbally ordered. This RN placed orders as given.
[2023-12-20] MEDS: ACETAMINOPHEN IV 1,000 MG/100 ML VIAL 400 MG IV ×2 (08:10→15:13)
[2023-12-20] MEDS: SODIUM CHLORIDE 0.9% 1,000 ML 100 ML IV ×2 (08:11→18:06)
--- NOTE | 2023-12-20 08:25 | P.PN_ITS ---
Subjective Subjective Date Patient Seen: 12/20/23 Exam Vital Signs (past 8 hours): - 12/20/23 00:30 12/20/23 00:30 12/20/23 00:40 Temperature Pulse Rate 127 H 128 H Respiratory Rate 25 H 25 H Blood Pressure 90/54 L Pulse Oximetry 100 100 Oxygen Delivery Method 12/20/23 00:40 12/20/23 00:50 12/20/23 00:50 Temperature Pulse Rate 124 H Respiratory Rate 24 Blood Pressure 88/50 L 96/51 L Pulse Oximetry 100 Oxygen Delivery Method 12/20/23 01:00 12/20/23 01:00 12/20/23 01:10 Temperature Pulse Rate 130 H 128 H Respiratory Rate 24 30 H Blood Pressure 98/53 L Pulse Oximetry 100 99 Oxygen Delivery Method Room Air 12/20/23 01:10 12/20/23 01:20 12/20/23 01:20 Temperature Pulse Rate 125 H Respiratory Rate 16 Blood Pressure 93/55 L 90/53 L Pulse Oximetry 100 Oxygen Delivery Method Room Air 12/20/23 01:30 12/20/23 01:30 12/20/23 01:40 Temperature Pulse Rate 125 H 125 H Respiratory Rate 25 H 24 Blood Pressure 94/50 L Pulse Oximetry 100 100 Oxygen Delivery Method 12/20/23 01:40 12/20/23 01:50 12/20/23 01:50 Temperature Pulse Rate 127 H Respiratory Rate 26 H Blood Pressure 86/51 L 91/54 L Pulse Oximetry 100 Oxygen Delivery Method 12/20/23 02:00 12/20/23 02:00 12/20/23 02:10 Temperature Pulse Rate 125 H 126 H Respiratory Rate 7 L 24 Blood Pressure 98/56 L Pulse Oximetry 100 Oxygen Delivery Method 12/20/23 02:10 12/20/23 02:20 12/20/23 02:20 Temperature Pulse Rate 131 H Respiratory Rate 28 H Blood Pressure 98/58 L 91/53 L Pulse Oximetry 100 Oxygen Delivery Method 12/20/23 02:30 12/20/23 02:40 12/20/23 02:48 Temperature 102.4 F H Pulse Rate Respiratory Rate Blood Pressure 99/63 115/63 Pulse Oximetry Oxygen Delivery Method 12/20/23 02:55 12/20/23 02:55 12/20/23 03:00 Temperature Pulse Rate 141 H 140 H Respiratory Rate 18 20 Blood Pressure 112/62 Pulse Oximetry 97 95 Oxygen Delivery Method 12/20/23 03:01 12/20/23 03:01 12/20/23 03:10 Temperature Pulse Rate 139 H 136 H Respiratory Rate 18 31 H Blood Pressure 99/60 Pulse Oximetry 95 95 Oxygen Delivery Method 12/20/23 03:10 12/20/23 03:20 12/20/23 03:20 Temperature Pulse Rate 134 H Respiratory Rate 27 H Blood Pressure 96/54 L 92/55 L Pulse Oximetry 95 Oxygen Delivery Method 12/20/23 03:30 12/20/23 03:30 12/20/23 03:40 Temperature Pulse Rate 138 H 138 H Respiratory Rate 27 H 30 H Blood Pressure 92/54 L Pulse Oximetry 94 96 Oxygen Delivery Method Room Air 12/20/23 03:40 12/20/23 03:45 12/20/23 03:50 Temperature 102.7 F H Pulse Rate Respiratory Rate Blood Pressure 85/48 L 93/52 L Pulse Oximetry Oxygen Delivery Method 12/20/23 03:50 12/20/23 04:00 12/20/23 04:00 Temperature Pulse Rate 149 H 140 H Respiratory Rate 33 H 28 H Blood Pressure 87/50 L Pulse Oximetry 98 96 Oxygen Delivery Method 12/20/23 04:10 12/20/23 04:10 12/20/23 04:20 Temperature Pulse Rate 129 H 129 H Respiratory Rate 23 24 Blood Pressure 88/49 L Pulse Oximetry 95 95 Oxygen Delivery Method 12/20/23 04:20 12/20/23 04:30 12/20/23 04:30 Temperature Pulse Rate 127 H Respiratory Rate 22 Blood Pressure 93/52 L 96/52 L Pulse Oximetry 94 Oxygen Delivery Method 12/20/23 04:40 12/20/23 04:40 12/20/23 04:50 Temperature Pulse Rate 127 H 126 H Respiratory Rate 22 22 Blood Pressure 96/55 L Pulse Oximetry 94 96 Oxygen Delivery Method 12/20/23 04:50 12/20/23 04:51 12/20/23 04:51 Temperature 100.9 F H Pulse Rate 131 H Respiratory Rate 25 H Blood Pressure 79/43 L 87/51 L Pulse Oximetry 97 Oxygen Delivery Method 12/20/23 05:00 12/20/23 05:00 12/20/23 05:10 Temperature Pulse Rate 125 H 125 H Respiratory Rate 22 22 Blood Pressure 90/54 L Pulse Oximetry 96 95 Oxygen Delivery Method 12/20/23 05:10 12/20/23 05:20 12/20/23 05:20 Temperature Pulse Rate 128 H Respiratory Rate 21 Blood Pressure 91/55 L 89/50 L Pulse Oximetry 96 Oxygen Delivery Method 12/20/23 05:30 12/20/23 05:30 12/20/23 05:40 Temperature Pulse Rate 126 H 128 H Respiratory Rate 21 22 Blood Pressure 92/50 L Pulse Oximetry 95 95 Oxygen Delivery Method 12/20/23 05:40 12/20/23 05:50 12/20/23 05:50 Temperature Pulse Rate 129 H Respiratory Rate 23 Blood Pressure 88/53 L 76/40 L Pulse Oximetry 96 Oxygen Delivery Method 12/20/23 05:52 12/20/23 05:52 12/20/23 06:00 Temperature Pulse Rate 130 H Respiratory Rate 25 H Blood Pressure 81/48 L 75/40 L Pulse Oximetry 96 Oxygen Delivery Method 12/20/23 06:00 12/20/23 06:09 12/20/23 06:10 Temperature Pulse Rate 128 H 130 H Respiratory Rate 23 25 H Blood Pressure 79/47 L Pulse Oximetry 96 96 Oxygen Delivery Method 12/20/23 06:10 12/20/23 06:12 12/20/23 06:12 Temperature Pulse Rate 130 H 130 H Respiratory Rate 24 24 Blood Pressure 80/46 L Pulse Oximetry 96 96 Oxygen Delivery Method 12/20/23 06:20 12/20/23 06:20 12/20/23 06:30 Temperature Pulse Rate 150 H 136 H Respiratory Rate 18 31 H Blood Pressure 104/55 L Pulse Oximetry 95 95 Oxygen Delivery Method 12/20/23 06:30 12/20/23 06:40 12/20/23 06:40 Temperature Pulse Rate 132 H Respiratory Rate 26 H Blood Pressure 89/53 L 83/53 L Pulse Oximetry 94 Oxygen Delivery Method 12/20/23 06:50 12/20/23 06:50 12/20/23 07:00 Temperature Pulse Rate 135 H 143 H Respiratory Rate 29 H 31 H Blood Pressure 82/52 L Pulse Oximetry 95 Oxygen Delivery Method 12/20/23 07:00 12/20/23 07:10 12/20/23 07:10 Temperature Pulse Rate 136 H Respiratory Rate 28 H Blood Pressure 96/54 L 86/54 L Pulse Oximetry Oxygen Delivery Method 12/20/23 07:30 12/20/23 07:30 12/20/23 07:40 Temperature Pulse Rate 145 H 138 H Respiratory Rate 32 H 26 H Blood Pressure 92/55 L Pulse Oximetry 96 Oxygen Delivery Method 12/20/23 07:40 12/20/23 07:50 12/20/23 07:50 Temperature Pulse Rate 143 H Respiratory Rate 39 H Blood Pressure 92/53 L 89/50 L Pulse Oximetry 95 Oxygen Delivery Method 12/20/23 08:00 12/20/23 08:00 12/20/23 08:05 Temperature 103.1 F H Pulse Rate 144 H Respiratory Rate 40 H Blood Pressure 88/50 L Pulse Oximetry 96 Oxygen Delivery Method 12/20/23 08:10 12/20/23 08:10 Temperature Pulse Rate 146 H Respiratory Rate 36 H Blood Pressure 91/50 L Pulse Oximetry 95 Oxygen Delivery Method Oxygen Delivery Method Room Air Objective Labs 12/19/23 23:05 12/19/23 23:05 Labs: Laboratory Results - last 24 hr 12/19/23 12/19/23 12/19/23 23:00 23:05 23:13 WBC 20.1 H RBC 4.43 Hgb 9.9 L Hct 31.1 L MCV 70.1 L MCH 22.4 L MCHC 31.9 RDW 18.1 H Plt Count 235 Neut % (Auto) Not Reportable Lymph % (Auto) Not Reportable Evans % (Auto) Not Reportable Eos % (Auto) Not Reportable Baso % (Auto) Not Reportable Lymph # (Auto) Not Reportable Evans # (Auto) Not Reportable Baso # (Auto) Not Reportable Total Counted 100 Seg Neutrophils % 75.0 H Band Neutrophils % 17.0 H Lymphocytes % (Manual) 6.0 L Monocytes % (Manual) 1.0 L Metamyelocytes % 1.0 H Neutrophils # (Manual) 66426 H RBC Morphology See below Hypochromasia 1+ H Anisocytosis 2+ H Microcytosis 2+ H Sodium 128 L Potassium 3.3 L Chloride 96 L Carbon Dioxide 13 L BUN 38 H Creatinine 1.48 H Estimated GFR 51 L BUN/Creatinine Ratio 25.7 H Glucose 143 H Lactate 3.3 H Calcium 9.4 Total Bilirubin 0.7 AST 37 H ALT 34 Alkaline Phosphatase 79 Total Creatine Kinase 254 H Total Protein 10.1 H Albumin 4.1 Globulin 6.0 H Albumin/Globulin Ratio 0.7 L Lipase 26 Procalcitonin 39.5 H Serum , Qual Negative Urine Color Urine Appearance Urine pH Ur Specific [place] Urine Protein Urine Glucose (UA) Urine Ketones Urine Occult Blood Urine Nitrate Urine Bilirubin Ur Bilirubin Confirm Urine Urobilinogen Ur Leukocyte Esterase Urine RBC Urine WBC Ur Squamous Epith Cells Ur Transition Epith Cell Amorphous Sediment Urine Bacteria Hyaline Casts Granular Casts Urine Mucus Vol Urine Centrifuged CSF Tube Number CSF Volume CSF Appearance CSF Color CSF WBC CSF RBC CSF Mononuclear WBCs CSF Polynuclear WBCs CSF Glucose CSF Total Protein CSF C.neoform/gat PCR CSF CMV DNA (PCR) CSF Enterovirus (PCR) CSF E. coli (PCR) CSF H. influenzae (PCR) CSF HSV I (PCR) CSF HSV II (PCR) CSF HHV 6 (PCR) CSF L.monocytogenes PCR CSF N. meningitidis PCR CSF Parechovirus (PCR) CSF S. agalactiae (PCR) CSF S. pneumoniae (PCR) CSF VZV (PCR) Stl C. cayetanensis PCR Stool Rotavirus (PCR) Stool Adenovirus (PCR) Stool Astrovirus (PCR) Stool Cryptosporidium PCR Stl E.coli Shiga Tox PCR St Sh/Enteroin Ecoli PCR Stl Enterotoxigenic E PCR Stool EPEC (PCR) Stl E. histolytica PCR Stool Giardia Lamblia PCR Stool Sapovirus (PCR) Stl P. shigelloides PCR St Y.enterocolitica PCR Stool Vibrio (PCR) Stl Vibrio cholerae PCR Stl Enteroaggr Ecoli PCR Stl Norovirus GI/GII PCR Ethyl Alcohol < 10 Chlamy pneumoniae PCR Not detected Adenovirus (PCR) Not detected B.parapertussis DNA PCR Not detected Campylobacter (PCR) C. difficile Tox (PCR) Coronavirus OC43 (PCR) Not detected Coronavirus HKU1 (PCR) Not detected Coronavirus 229E (PCR) Not detected SARS-CoV-2 (PCR) Not detected Coronavirus NL63 (PCR) Not detected Human Metapneumovir PCR Not detected Influenza Type A (PCR) Not detected Influenza Type B (PCR) Not detected M. pneumoniae (PCR) Not detected Parainfluenza 1 (PCR) Not detected Parainfluenza 2 (PCR) Not detected Parainfluenza 3 (PCR) Not detected Parainfluenza 4 (PCR) Not detected RSV (PCR) Not detected Entero/Rhino (PCR) Not detected Rubella Antibody 0.7 L Salmonella (PCR) 12/20/23 12/20/23 12/20/23 00:40 01:15 01:20 WBC RBC Hgb Hct MCV MCH MCHC RDW Plt Count Neut % (Auto) Lymph % (Auto) Evans % (Auto) Eos % (Auto) Baso % (Auto) Lymph # (Auto) Evans # (Auto) Baso # (Auto) Total Counted Seg Neutrophils % Band Neutrophils % Lymphocytes % (Manual) Monocytes % (Manual) Metamyelocytes % Neutrophils # (Manual) RBC Morphology Hypochromasia Anisocytosis Microcytosis Sodium Potassium Chloride Carbon Dioxide BUN Creatinine Estimated GFR BUN/Creatinine Ratio Glucose Lactate 2.3 H Calcium Total Bilirubin AST ALT Alkaline Phosphatase Total Creatine Kinase Total Protein Albumin Globulin Albumin/Globulin Ratio Lipase Procalcitonin Serum , Qual Urine Color Yellow Urine Appearance Sl cloudy Urine pH 5.5 Ur Specific [place] >=1.030 H Urine Protein 3+ H Urine Glucose (UA) Negative Urine Ketones Negative Urine Occult Blood Trace-intact Urine Nitrate Negative Urine Bilirubin 1+ H Ur Bilirubin Confirm Negative Urine Urobilinogen 0.2 Ur Leukocyte Esterase Negative Urine RBC 0-1/hpf Urine WBC 0-1/hpf Ur Squamous Epith Cells 0-1 /hpf Ur Transition Epith Cell 0-1/hpf Amorphous Sediment 3+ Urine Bacteria Few (2-10) H Hyaline Casts 0-1/lpf Granular Casts 1-5/lpf Urine Mucus 1+ H Vol Urine Centrifuged 10ml (spun) CSF Tube Number CSF Volume CSF Appearance CSF Color CSF WBC CSF RBC CSF Mononuclear WBCs CSF Polynuclear WBCs CSF Glucose CSF Total Protein CSF C.neoform/gat PCR CSF CMV DNA (PCR) CSF Enterovirus (PCR) CSF E. coli (PCR) CSF H. influenzae (PCR) CSF HSV I (PCR) CSF HSV II (PCR) CSF HHV 6 (PCR) CSF L.monocytogenes PCR CSF N. meningitidis PCR CSF Parechovirus (PCR) CSF S. agalactiae (PCR) CSF S. pneumoniae (PCR) CSF VZV (PCR) Stl C. cayetanensis PCR Not detected Stool Rotavirus (PCR) Not detected Stool Adenovirus (PCR) Not detected Stool Astrovirus (PCR) Not detected Stool Cryptosporidium PCR Not detected Stl E.coli Shiga Tox PCR Not detected St Sh/Enteroin Ecoli PCR Not detected Stl Enterotoxigenic E PCR Not detected Stool EPEC (PCR) Not detected Stl E. histolytica PCR Not detected Stool Giardia Lamblia PCR Not detected Stool Sapovirus (PCR) Not detected Stl P. shigelloides PCR Not detected St Y.enterocolitica PCR Not detected Stool Vibrio (PCR) Not detected Stl Vibrio cholerae PCR Not detected Stl Enteroaggr Ecoli PCR Not detected Stl Norovirus GI/GII PCR Not detected Ethyl Alcohol Chlamy pneumoniae PCR Adenovirus (PCR) B.parapertussis DNA PCR Campylobacter (PCR) Not detected C. difficile Tox (PCR) Not detected Coronavirus OC43 (PCR) Coronavirus HKU1 (PCR) Coronavirus 229E (PCR) SARS-CoV-2 (PCR) Coronavirus NL63 (PCR) Human Metapneumovir PCR Influenza Type A (PCR) Influenza Type B (PCR) M. pneumoniae (PCR) Parainfluenza 1 (PCR) Parainfluenza 2 (PCR) Parainfluenza 3 (PCR) Parainfluenza 4 (PCR) RSV (PCR) Entero/Rhino (PCR) Rubella Antibody Salmonella (PCR) Not detected 12/20/23 02:40 WBC RBC Hgb Hct MCV MCH MCHC RDW Plt Count Neut % (Auto) Lymph % (Auto) Evans % (Auto) Eos % (Auto) Baso % (Auto) Lymph # (Auto) Evans # (Auto) Baso # (Auto) Total Counted Seg Neutrophils % Band Neutrophils % Lymphocytes % (Manual) Monocytes % (Manual) Metamyelocytes % Neutrophils # (Manual) RBC Morphology Hypochromasia Anisocytosis Microcytosis Sodium Potassium Chloride Carbon Dioxide BUN Creatinine Estimated GFR BUN/Creatinine Ratio Glucose Lactate Calcium Total Bilirubin AST ALT Alkaline Phosphatase Total Creatine Kinase Total Protein Albumin Globulin Albumin/Globulin Ratio Lipase Procalcitonin Serum , Qual Urine Color Urine Appearance Urine pH Ur Specific [place] Urine Protein Urine Glucose (UA) Urine Ketones Urine Occult Blood Urine Nitrate Urine Bilirubin Ur Bilirubin Confirm Urine Urobilinogen Ur Leukocyte Esterase Urine RBC Urine WBC Ur Squamous Epith Cells Ur Transition Epith Cell Amorphous Sediment Urine Bacteria Hyaline Casts Granular Casts Urine Mucus Vol Urine Centrifuged CSF Tube Number 3 CSF Volume 1.5 ml CSF Appearance Clear CSF Color Colorless CSF WBC 1.0 CSF RBC 3 CSF Mononuclear WBCs TNP CSF Polynuclear WBCs TNP CSF Glucose 62 CSF Total Protein 37 CSF C.neoform/gat PCR Not detected CSF CMV DNA (PCR) Not detected CSF Enterovirus (PCR) Not detected CSF E. coli (PCR) Not detected CSF H. influenzae (PCR) Not detected CSF HSV I (PCR) Not detected CSF HSV II (PCR) Not detected CSF HHV 6 (PCR) Not detected CSF L.monocytogenes PCR Not detected CSF N. meningitidis PCR Not detected CSF Parechovirus (PCR) Not detected CSF S. agalactiae (PCR) Not detected CSF S. pneumoniae (PCR) Not detected CSF VZV (PCR) Not detected Stl C. cayetanensis PCR Stool Rotavirus (PCR) Stool Adenovirus (PCR) Stool Astrovirus (PCR) Stool Cryptosporidium PCR Stl E.coli Shiga Tox PCR St Sh/Enteroin Ecoli PCR Stl Enterotoxigenic E PCR Stool EPEC (PCR) Stl E. histolytica PCR Stool Giardia Lamblia PCR Stool Sapovirus (PCR) Stl P. shigelloides PCR St Y.enterocolitica PCR Stool Vibrio (PCR) Stl Vibrio cholerae PCR Stl Enteroaggr Ecoli PCR Stl Norovirus GI/GII PCR Ethyl Alcohol Chlamy pneumoniae PCR Adenovirus (PCR) B.parapertussis DNA PCR Campylobacter (PCR) C. difficile Tox (PCR) Coronavirus OC43 (PCR) Coronavirus HKU1 (PCR) Coronavirus 229E (PCR) SARS-CoV-2 (PCR) Coronavirus NL63 (PCR) Human Metapneumovir PCR Influenza Type A (PCR) Influenza Type B (PCR) M. pneumoniae (PCR) Parainfluenza 1 (PCR) Parainfluenza 2 (PCR) Parainfluenza 3 (PCR) Parainfluenza 4 (PCR) RSV (PCR) Entero/Rhino (PCR) Rubella Antibody Salmonella (PCR) [facility] Medical History (Updated 12/20/23 @ 07:56 by Khanh Manzanares MD) Mixed connective tissue disease Social History Smoking Status: Never smoker Assessment & Plan Assessment & Plan narrative: Suspected Sepsis - IVFs, empiric abx - Vancomycin, Rocephin - potential source dental cavities or strep throat as she complained on dry and tender throat - cultures pending - Xray Rt elbow - complains on swelling and tenderness in the absence of recent injuries - ICU admission, pressors prn YING - IVFs Mixed Connective Tissue Disease - apparently w/o recent flares - in the past had treatment with prednisone DVT prophylaxis -SCDs Time-Based Coding :: [TOTAL MINUTES] spent with patient and on the chart (including review of chart, obtaining history, exam, reviewing outside data, placing orders, documenting exam and treatment plan, and counseling patient) on [DATE].
--- NOTE | 2023-12-20 08:33 | PC.NURSE ---
Patient transferred to hospital bed.
[2023-12-20 08:42] LABS: Add Manual Diff / Slide Review YES; Hematocrit 27.3 % (36-46); Hemoglobin 8.5 g/dL (12.0-16.0); Mean Corpuscular HGB Conc 31.1 % (30-36); Mean Corpuscular Hemoglobin 22.2 PG (26-34); Mean Corpuscular Volume 71.2 fL (80-100); Platelet Count 178 X10^3/uL (150-400); Red Blood Cell Count 3.83 X10^6/uL (4.0-5.2); Red Cell Distribution Width 18.2 % (11.6-14.8)
[2023-12-20 08:48] LABS: BUN Creatinine Ratio 27.5 (6-22); Blood Urea Nitrogen 36 mg/dL (7-17); Calcium 7.7 mg/dL (8.4-10.2); Carbon Dioxide 14 mmol/L (22-32); Chloride 102 mmol/L (98-107); Estimated Glomerular Filt Rate 59 mL/min (>60); Glucose 95 mg/dL (70-100); HEMOLYSIS < 15 (0-50); Potassium 3.2 mmol/L (3.4-5.1); Sodium 130 mmol/L (137-145)
[2023-12-20 08:51] LABS: Lactate (Lactic Acid) 5.4 mmol/L (0.7-2.1)
[2023-12-20] MEDS: NOREPINEPHRINE BITARTRATE/D5W 4 MG/250 ML PLAST..BAG 28.125 MG IV ×2 (08:59→14:10)
[2023-12-20 09:10] LABS: Neutrophils Absolute Manual 18480 /uL (3000-5900); Total Cells Counted 100
[2023-12-20 09:11] LABS: Anisocytosis 2+; Poikilocytosis 1+
[2023-12-20] MEDS: DOXYCYCLINE 100 MG in SODIUM CHLORIDE 0.9% 100 ML IV (09:13)
--- NOTE | 2023-12-20 09:24 | PC.NURSE ---
This RN with provider aditya placed 3 ice packs with patient for cooling measures. 1 placed in each armpit and 1 on forehead.
--- NOTE | 2023-12-20 09:57 | PC.NURSE ---
This RN called report to [facility] ICU nurse.
[2023-12-20 10:13] LABS: Reflexed Lactate in 2 Hours Y
--- NOTE | 2023-12-20 10:45 | PC.ADMIT ---
Admission Note: Pt arrived via hospital bed from ED at approximately 10:15. Pt A&Ox4, soft spoken, lethargic. Vitals as charted. Father at bedside. Monitors in place, febrile and hypotensive. Oriented to room and plan of care. The patient,Jennifer Huynh,23 y/o, was given written information regarding hospital policies, unit procedures and contact persons. Patient's smoking status: Never smoker. Vital Signs - 8 hr 12/20/23 02:48 12/20/23 02:55 12/20/23 02:55 Temperature 102.4 F H Pulse Rate 141 H Respiratory Rate 18 Blood Pressure 112/62 Pulse Oximetry 97 Oxygen Delivery Method 12/20/23 03:00 12/20/23 03:01 12/20/23 03:01 Temperature Pulse Rate 140 H 139 H Respiratory Rate 20 18 Blood Pressure 99/60 Pulse Oximetry 95 95 Oxygen Delivery Method 12/20/23 03:10 12/20/23 03:10 12/20/23 03:20 Temperature Pulse Rate 136 H 134 H Respiratory Rate 31 H 27 H Blood Pressure 96/54 L Pulse Oximetry 95 95 Oxygen Delivery Method 12/20/23 03:20 12/20/23 03:30 12/20/23 03:30 Temperature Pulse Rate 138 H Respiratory Rate 27 H Blood Pressure 92/55 L 92/54 L Pulse Oximetry 94 Oxygen Delivery Method Room Air 12/20/23 03:40 12/20/23 03:40 12/20/23 03:45 Temperature 102.7 F H Pulse Rate 138 H Respiratory Rate 30 H Blood Pressure 85/48 L Pulse Oximetry 96 Oxygen Delivery Method 12/20/23 03:50 12/20/23 03:50 12/20/23 04:00 Temperature Pulse Rate 149 H 140 H Respiratory Rate 33 H 28 H Blood Pressure 93/52 L Pulse Oximetry 98 96 Oxygen Delivery Method 12/20/23 04:00 12/20/23 04:10 12/20/23 04:10 Temperature Pulse Rate 129 H Respiratory Rate 23 Blood Pressure 87/50 L 88/49 L Pulse Oximetry 95 Oxygen Delivery Method 12/20/23 04:20 12/20/23 04:20 12/20/23 04:30 Temperature Pulse Rate 129 H 127 H Respiratory Rate 24 22 Blood Pressure 93/52 L Pulse Oximetry 95 94 Oxygen Delivery Method 12/20/23 04:30 12/20/23 04:40 12/20/23 04:40 Temperature Pulse Rate 127 H Respiratory Rate 22 Blood Pressure 96/52 L 96/55 L Pulse Oximetry 94 Oxygen Delivery Method 12/20/23 04:50 12/20/23 04:50 12/20/23 04:51 Temperature Pulse Rate 126 H 131 H Respiratory Rate 22 25 H Blood Pressure 79/43 L Pulse Oximetry 96 97 Oxygen Delivery Method 12/20/23 04:51 12/20/23 05:00 12/20/23 05:00 Temperature 100.9 F H Pulse Rate 125 H Respiratory Rate 22 Blood Pressure 87/51 L 90/54 L Pulse Oximetry 96 Oxygen Delivery Method 12/20/23 05:10 12/20/23 05:10 12/20/23 05:20 Temperature Pulse Rate 125 H 128 H Respiratory Rate 22 21 Blood Pressure 91/55 L Pulse Oximetry 95 96 Oxygen Delivery Method 12/20/23 05:20 12/20/23 05:30 12/20/23 05:30 Temperature Pulse Rate 126 H Respiratory Rate 21 Blood Pressure 89/50 L 92/50 L Pulse Oximetry 95 Oxygen Delivery Method 12/20/23 05:40 12/20/23 05:40 12/20/23 05:50 Temperature Pulse Rate 128 H 129 H Respiratory Rate 22 23 Blood Pressure 88/53 L Pulse Oximetry 95 96 Oxygen Delivery Method 12/20/23 05:50 12/20/23 05:52 12/20/23 05:52 Temperature Pulse Rate 130 H Respiratory Rate 25 H Blood Pressure 76/40 L 81/48 L Pulse Oximetry 96 Oxygen Delivery Method 12/20/23 06:00 12/20/23 06:00 12/20/23 06:09 Temperature Pulse Rate 128 H 130 H Respiratory Rate 23 25 H Blood Pressure 75/40 L Pulse Oximetry 96 96 Oxygen Delivery Method 12/20/23 06:10 12/20/23 06:10 12/20/23 06:12 Temperature Pulse Rate 130 H Respiratory Rate 24 Blood Pressure 79/47 L 80/46 L Pulse Oximetry 96 Oxygen Delivery Method 12/20/23 06:12 12/20/23 06:20 12/20/23 06:20 Temperature Pulse Rate 130 H 150 H Respiratory Rate 24 18 Blood Pressure 104/55 L Pulse Oximetry 96 95 Oxygen Delivery Method 12/20/23 06:30 12/20/23 06:30 12/20/23 06:40 Temperature Pulse Rate 136 H Respiratory Rate 31 H Blood Pressure 89/53 L 83/53 L Pulse Oximetry 95 Oxygen Delivery Method 12/20/23 06:40 12/20/23 06:50 12/20/23 06:50 Temperature Pulse Rate 132 H 135 H Respiratory Rate 26 H 29 H Blood Pressure 82/52 L Pulse Oximetry 94 95 Oxygen Delivery Method 12/20/23 07:00 12/20/23 07:00 12/20/23 07:10 Temperature Pulse Rate 143 H 136 H Respiratory Rate 31 H 28 H Blood Pressure 96/54 L Pulse Oximetry Oxygen Delivery Method 12/20/23 07:10 12/20/23 07:30 12/20/23 07:30 Temperature Pulse Rate 145 H Respiratory Rate 32 H Blood Pressure 86/54 L 92/55 L Pulse Oximetry Oxygen Delivery Method 12/20/23 07:40 12/20/23 07:40 12/20/23 07:50 Temperature Pulse Rate 138 H 143 H Respiratory Rate 26 H 39 H Blood Pressure 92/53 L Pulse Oximetry 96 95 Oxygen Delivery Method 12/20/23 07:50 12/20/23 08:00 12/20/23 08:00 Temperature Pulse Rate 144 H Respiratory Rate 40 H Blood Pressure 89/50 L 88/50 L Pulse Oximetry 96 Oxygen Delivery Method 12/20/23 08:05 12/20/23 08:10 12/20/23 08:10 Temperature 103.1 F H Pulse Rate 146 H Respiratory Rate 36 H Blood Pressure 91/50 L Pulse Oximetry 95 Oxygen Delivery Method 12/20/23 08:30 12/20/23 08:33 12/20/23 08:33 Temperature Pulse Rate 156 H 149 H Respiratory Rate 32 H 32 H Blood Pressure 100/51 L Pulse Oximetry 95 98 Oxygen Delivery Method 12/20/23 08:35 12/20/23 08:40 12/20/23 08:40 Temperature Pulse Rate 145 H 146 H Respiratory Rate 33 H 30 H Blood Pressure 88/48 L Pulse Oximetry 97 95 Oxygen Delivery Method 12/20/23 08:41 12/20/23 08:45 12/20/23 08:50 Temperature 103.1 F H Pulse Rate 146 H Respiratory Rate 35 H Blood Pressure 72/38 L Pulse Oximetry Oxygen Delivery Method 12/20/23 08:50 12/20/23 08:55 12/20/23 09:00 Temperature Pulse Rate 140 H 143 H Respiratory Rate 31 H 40 H Blood Pressure 75/41 L Pulse Oximetry Oxygen Delivery Method 12/20/23 09:00 12/20/23 09:05 12/20/23 09:05 Temperature Pulse Rate 138 H 132 H Respiratory Rate 36 H 35 H Blood Pressure 78/45 L Pulse Oximetry Oxygen Delivery Method 12/20/23 09:10 12/20/23 09:10 12/20/23 09:15 Temperature Pulse Rate 131 H 132 H Respiratory Rate 37 H 35 H Blood Pressure 77/45 L Pulse Oximetry Oxygen Delivery Method 12/20/23 09:16 12/20/23 09:16 12/20/23 09:20 Temperature Pulse Rate 130 H 130 H Respiratory Rate 36 H 34 H Blood Pressure 76/42 L Pulse Oximetry 98 Oxygen Delivery Method 12/20/23 09:20 12/20/23 09:21 12/20/23 09:21 Temperature Pulse Rate 130 H Respiratory Rate 34 H Blood Pressure 82/46 L 88/50 L Pulse Oximetry 97 Oxygen Delivery Method 12/20/23 09:23 12/20/23 09:25 12/20/23 09:25 Temperature 100.6 F H Pulse Rate 127 H Respiratory Rate 30 H Blood Pressure 88/53 L Pulse Oximetry 95 Oxygen Delivery Method 12/20/23 09:30 12/20/23 09:30 12/20/23 09:35 Temperature 101.5 F H 101.7 F H Pulse Rate 128 H 127 H Respiratory Rate 34 H 32 H Blood Pressure 85/50 L Pulse Oximetry 96 96 Oxygen Delivery Method 12/20/23 09:35 12/20/23 09:40 12/20/23 09:40 Temperature 101.7 F H Pulse Rate 127 H Respiratory Rate 31 H Blood Pressure 88/54 L 91/51 L Pulse Oximetry 96 Oxygen Delivery Method 12/20/23 09:45 12/20/23 09:45 12/20/23 09:50 Temperature 101.8 F H 101.8 F H Pulse Rate 127 H 124 H Respiratory Rate 29 H 26 H Blood Pressure 90/54 L Pulse Oximetry 96 96 Oxygen Delivery Method 12/20/23 09:50 12/20/23 09:55 12/20/23 09:55 Temperature 101.8 F H Pulse Rate 124 H Respiratory Rate 23 Blood Pressure 90/55 L 99/58 L Pulse Oximetry 96 Oxygen Delivery Method 12/20/23 10:00 12/20/23 10:00 12/20/23 10:05 Temperature 101.7 F H Pulse Rate 126 H Respiratory Rate 23 Blood Pressure 98/57 L 86/51 L Pulse Oximetry 96 Oxygen Delivery Method 12/20/23 10:05 12/20/23 10:10 12/20/23 10:10 Temperature 101.7 F H 101.7 F H Pulse Rate 134 H 132 H Respiratory Rate 27 H 28 H Blood Pressure 89/50 L Pulse Oximetry 96 96 Oxygen Delivery Method 12/20/23 10:15 12/20/23 10:40 12/20/23 10:40 Temperature 101.7 F H 101.5 F H Pulse Rate 133 H 123 H Respiratory Rate 29 H Blood Pressure 95/54 L Pulse Oximetry 97 100 Oxygen Delivery Method
[2023-12-20] MEDS: VANCOMYCIN 1,000 MG/200 ML PIGGYBACK 200 MG IV (10:56)
[2023-12-20 10:58] LABS: Lactate 2HR (Lactic Acid Rflx) 3.7 mmol/L (0.7-2.1)
[2023-12-20 11:18] LABS: Ferritin 93 ng/mL (6-137)
[2023-12-20] MEDS: POTASSIUM CHLORIDE IN WATER 10 MEQ/100 ML PIGGYBACK 100 MEQ IV ×4 (12:09→17:44)
[2023-12-20 12:11] LABS: Strep Grp A by PCR Rapid Positive (Negative)
[2023-12-20 12:18] LABS: Acinetobacter calcoa-baumannii Not Detected (Not Detect); Bacteroides fragilis Not Detected (Not Detect); Candida albicans Not Detected (Not Detect); Candida auris Not Detected (Not Detect); Candida glabrata Not Detected (Not Detect); Candida krusei Not Detected (Not Detect); Candida parapsilosis Not Detected (Not Detect); Candida tropicalis Not Detected (Not Detect); Cryptococcus neoformans/gatti Not Detected (Not Detect); Enterobacter cloacae complex Not Detected (Not Detect); Enterobacterales Not Detected (Not Detect); Enterococcus faecalis Not Detected (Not Detect); Enterococcus faecium Not Detected (Not Detect); Haemophilus influenzae Not Detected (Not Detect); Klebsiella aerogenes Not Detected (Not Detect); Listeria monocytogenes Not Detected (Not Detect); Neisseria meningitidis Not Detected (Not Detect); Proteus species Not Detected (Not Detect); Pseudomonas aeruginosa Not Detected (Not Detect); Salmonella species Not Detected (Not Detect); Serratia marcescens Not Detected (Not Detect); Staphylococcus epidermidis Not Detected (Not Detect); Staphylococcus lugdunensis Not Detected (Not Detect); Staphylococcus species Not Detected (Not Detect); Stenotrophomonas maltophilia Not Detected (Not Detect); Streptococcus agalactiae (Gr B Not Detected (Not Detect); Streptococcus pneumonia Not Detected (Not Detect); Streptococcus species Detected (Not Detect)
[2023-12-20 12:22] LABS: Streptococcus pyogenes (Gr A) Detected (Not Detect)
--- NOTE | 2023-12-20 12:29 | DI.ECHO.S_ITS ---
[place] [facility]---------+ [facility] : : [address] : : [place] : : [id number] : : Phone: [phone] Echocardiogram Report + + :Name: LULU QUESADA Study Date: 12/21/2023 Height: 69 in : :[facility] ReadingLocation: Weight: 165 lb : : Gender: Female BSA: 1.9 m2 : :: 2000 Age: 23 yrs BP: 116/55 mmHg: :Reason For Study: STREP BACTEREMIA : :Ordering Physician: ROZINA, : :NAYAN Worley Performed By: Aryan Chun : :Referring: NAYAN HANDY : + + Interpretation Summary 1. The left ventricular contractility appears normal. Estimated ejection fraction is 50 to 55% with no segmental wall motion abnormalities. No LVH. Unable to comment on diastolic function due to tachycardia. 2. The right ventricle contractility is normal. 3. Mild left atrial enlargement noted. All other cardiac chambers are of normal size. 4. Mild mitral regurgitation. 5. Mild tricuspid regurgitation with estimated pulmonary systolic artery pressures of 46 to 51 mmHg. 6. No obvious intracardiac shunts. 7. No obvious intracardiac masses or thrombi. 8. No hemodynamically significant pericardial effusion. 9. No obvious valvular vegetations appreciated. Conclusion: Low normal left ventricular systolic function with mild valvular regurgitation but no obvious vegetations. Procedure: A two-dimensional transthoracic echocardiogram with color flow and Doppler was performed. The study quality was technically adequate. There is no prior echocardiogram noted for this patient. The patient was in sinus tachycardia with heart rates between 126-132 bpm during the exam. Left Ventricle: The left ventricle is normal in size and wall thickness. The ejection fraction is estimated to be 50-55%. Right Ventricle: The right ventricle is not well visualized. The right ventricular systolic function is normal. Atria: The left atrium is mildly dilated. Right atrial size is normal. The interatrial septum grossly appears intact with no obvious evidence for an atrial septal defect. Mitral Valve: The mitral valve is normal. There is no mitral valve stenosis. There is mild mitral regurgitation. Aortic Valve: The aortic valve is trileaflet. There is no aortic valve stenosis. No aortic regurgitation is present. Tricuspid Valve: The tricuspid valve is normal. There is no tricuspid stenosis. There is mild tricuspid regurgitation. Pulmonic Valve: The pulmonic valve is not well seen, but is grossly normal. There is no pulmonic valvular stenosis. There is a trace or physiologic amount of pulmonic regurgitation. Great Vessels: The aortic root is normal size. The dimensions of the ascending aorta are normal. The inferior vena cava was not visualized. Pericardium/ Pleura There is no pericardial effusion. There is no pleural effusion. MMode/2D Measurements & Calculations LVIDd: 5.0 cm LVOT diam: 1.8 cm LVIDs: 3.6 cm Ao root diam: 2.5 cm FS: 28.4 % asc Aorta Diam: 3.0 cm IVSd: 1.1 cm LVPWd: 0.93 cm LV hooks. diameter/BSA (cm/m^2): 2.6 LV sys. diameter/BSA (cm/m^2): 1.9 LA A2 area: 26.3 cm2 RA long axis: 4.0 cm LA A4 area: 23.5 cm2 RA area: 13.2 cm2 LA length (vol): 5.7 cm RA vol: 36.8 ml LA vol: 92.2 ml RA : 19.4 ml/m2 LA vol index: 48.4 ml/m2 TAPSE: 2.3 cm Doppler Measurements & Calculations Ao V2 max: 176.8 cm/sec LVOT Max Jared: 119.9 cm/sec Ao V2 mean: 142.5 cm/sec LV V1 max P.8 mmHg Ao max P.5 mmHg LV V1 VTI: 20.8 cm Ao mean P.5 mmHg YVON(I,D): 2.1 cm2 Ao V2 VTI: 26.6 cm YVON(V,D): 1.8 cm2 sev ratio: 0.78 YVON indexed to BSA (cm^2/m^2): 1.1 MV E max jared: 121.6 cm/sec TR max jared: 339.1 cm/sec MV A max jared: 68.8 cm/sec TR max P.2 mmHg MV E/A: 1.8 PA V2 max: 122.9 cm/sec Med Peak E' Jared: 7.0 cm/sec PA V2 mean: 93.8 cm/sec E/E' med: 17.4 PA mean P.7 mmHg Lat Peak E' Jared: 17.9 cm/sec PA pr(Accel): 51.6 mmHg E/E' lat: 6.8 E/e' average: 12.1 MV dec time: 0.13 sec SVLVOT): 55.2 ml Reading Physician:
--- NOTE | 2023-12-20 12:32 | P.PN_ITS ---
Subjective Subjective Date Patient Seen: 12/20/23 Time Patient Seen: 12:32 Interval history: She is seen in the ED and then again in the ICU today. She is discussed extensively with Infectious Disease, Dr. Vasquez in [place]. She had been camping for 2 days in [facility]. They were out in the [facility] with friends and cut the trip short due to rain. No one else was ill and she was not aware of any tick bites. This was 1 week ago. Over the preceding 6 days she has become more and more ill to the point where she was extremely weak, unable to talk and febrile so was brought in by her parents today. Her temperature this morning reached 103.1 with a blood pressure of 89/53 and a heart rate of 136. Her white blood count is 20.1 and her hemoglobin is 9.9. The CK is 254 and the lactate originally was 2.3 and then reached above 4 despite receiving 3 L of saline IV. Levophed was started. Her CSF studies were normal. She mentioned having a sore throat. It was difficult to see far enough into her throat to be clear but she appeared to have a normal coloration pharynx. She was started on doxycycline, ceftriaxone and vancomycin for sepsis/suspected bacteremia. Extensive testing including Babesiosis, leptospirosis, Lyme, Ehrlichia, peripheral smear, haptoglobin, ferritin level and West Nile virus testing was ordered. Eventually a rapid strep test was done which came back positive and at that very moment a call from the lab documented 4/6 blood cultures positive for strep pyogenes. This was discussed again with ID and her antibiotics were narrowed to ceftriaxone. Echocardiogram, repeat blood cultures tomorrow were arranged. This was discussed with the patient and with her mother. She continues in the ICU on Levophed and aggressive IV hydration. Exam Vital Signs (past 8 hours): - 12/20/23 04:40 12/20/23 04:40 12/20/23 04:50 Temperature Pulse Rate 127 H 126 H Respiratory Rate 22 22 Blood Pressure 96/55 L Pulse Oximetry 94 96 12/20/23 04:50 12/20/23 04:51 12/20/23 04:51 Temperature 100.9 F H Pulse Rate 131 H Respiratory Rate 25 H Blood Pressure 79/43 L 87/51 L Pulse Oximetry 97 12/20/23 05:00 12/20/23 05:00 12/20/23 05:10 Temperature Pulse Rate 125 H 125 H Respiratory Rate 22 22 Blood Pressure 90/54 L Pulse Oximetry 96 95 12/20/23 05:10 12/20/23 05:20 12/20/23 05:20 Temperature Pulse Rate 128 H Respiratory Rate 21 Blood Pressure 91/55 L 89/50 L Pulse Oximetry 96 12/20/23 05:30 12/20/23 05:30 12/20/23 05:40 Temperature Pulse Rate 126 H 128 H Respiratory Rate 21 22 Blood Pressure 92/50 L Pulse Oximetry 95 95 12/20/23 05:40 12/20/23 05:50 12/20/23 05:50 Temperature Pulse Rate 129 H Respiratory Rate 23 Blood Pressure 88/53 L 76/40 L Pulse Oximetry 96 12/20/23 05:52 12/20/23 05:52 12/20/23 06:00 Temperature Pulse Rate 130 H Respiratory Rate 25 H Blood Pressure 81/48 L 75/40 L Pulse Oximetry 96 12/20/23 06:00 12/20/23 06:09 12/20/23 06:10 Temperature Pulse Rate 128 H 130 H Respiratory Rate 23 25 H Blood Pressure 79/47 L Pulse Oximetry 96 96 12/20/23 06:10 12/20/23 06:12 12/20/23 06:12 Temperature Pulse Rate 130 H 130 H Respiratory Rate 24 24 Blood Pressure 80/46 L Pulse Oximetry 96 96 12/20/23 06:20 12/20/23 06:20 12/20/23 06:30 Temperature Pulse Rate 150 H 136 H Respiratory Rate 18 31 H Blood Pressure 104/55 L Pulse Oximetry 95 95 12/20/23 06:30 12/20/23 06:40 12/20/23 06:40 Temperature Pulse Rate 132 H Respiratory Rate 26 H Blood Pressure 89/53 L 83/53 L Pulse Oximetry 94 12/20/23 06:50 12/20/23 06:50 12/20/23 07:00 Temperature Pulse Rate 135 H 143 H Respiratory Rate 29 H 31 H Blood Pressure 82/52 L Pulse Oximetry 95 12/20/23 07:00 12/20/23 07:10 12/20/23 07:10 Temperature Pulse Rate 136 H Respiratory Rate 28 H Blood Pressure 96/54 L 86/54 L Pulse Oximetry 12/20/23 07:30 12/20/23 07:30 12/20/23 07:40 Temperature Pulse Rate 145 H 138 H Respiratory Rate 32 H 26 H Blood Pressure 92/55 L Pulse Oximetry 96 12/20/23 07:40 12/20/23 07:50 12/20/23 07:50 Temperature Pulse Rate 143 H Respiratory Rate 39 H Blood Pressure 92/53 L 89/50 L Pulse Oximetry 95 12/20/23 08:00 12/20/23 08:00 12/20/23 08:05 Temperature 103.1 F H Pulse Rate 144 H Respiratory Rate 40 H Blood Pressure 88/50 L Pulse Oximetry 96 12/20/23 08:10 12/20/23 08:10 12/20/23 08:30 Temperature Pulse Rate 146 H 156 H Respiratory Rate 36 H 32 H Blood Pressure 91/50 L Pulse Oximetry 95 95 12/20/23 08:33 12/20/23 08:33 12/20/23 08:35 Temperature Pulse Rate 149 H 145 H Respiratory Rate 32 H 33 H Blood Pressure 100/51 L Pulse Oximetry 98 97 12/20/23 08:40 12/20/23 08:40 12/20/23 08:41 Temperature 103.1 F H Pulse Rate 146 H Respiratory Rate 30 H Blood Pressure 88/48 L Pulse Oximetry 95 12/20/23 08:45 12/20/23 08:50 12/20/23 08:50 Temperature Pulse Rate 146 H 140 H Respiratory Rate 35 H 31 H Blood Pressure 72/38 L Pulse Oximetry 12/20/23 08:55 12/20/23 09:00 12/20/23 09:00 Temperature Pulse Rate 143 H 138 H Respiratory Rate 40 H 36 H Blood Pressure 75/41 L Pulse Oximetry 12/20/23 09:05 12/20/23 09:05 12/20/23 09:10 Temperature Pulse Rate 132 H 131 H Respiratory Rate 35 H 37 H Blood Pressure 78/45 L Pulse Oximetry 12/20/23 09:10 12/20/23 09:15 12/20/23 09:16 Temperature Pulse Rate 132 H Respiratory Rate 35 H Blood Pressure 77/45 L 76/42 L Pulse Oximetry 12/20/23 09:16 12/20/23 09:20 12/20/23 09:20 Temperature Pulse Rate 130 H 130 H Respiratory Rate 36 H 34 H Blood Pressure 82/46 L Pulse Oximetry 98 12/20/23 09:21 12/20/23 09:21 12/20/23 09:23 Temperature 100.6 F H Pulse Rate 130 H Respiratory Rate 34 H Blood Pressure 88/50 L Pulse Oximetry 97 12/20/23 09:25 12/20/23 09:25 12/20/23 09:30 Temperature 101.5 F H Pulse Rate 127 H 128 H Respiratory Rate 30 H 34 H Blood Pressure 88/53 L Pulse Oximetry 95 96 12/20/23 09:30 12/20/23 09:35 12/20/23 09:35 Temperature 101.7 F H Pulse Rate 127 H Respiratory Rate 32 H Blood Pressure 85/50 L 88/54 L Pulse Oximetry 96 12/20/23 09:40 12/20/23 09:40 12/20/23 09:45 Temperature 101.7 F H 101.8 F H Pulse Rate 127 H 127 H Respiratory Rate 31 H 29 H Blood Pressure 91/51 L Pulse Oximetry 96 96 12/20/23 09:45 12/20/23 09:50 12/20/23 09:50 Temperature 101.8 F H Pulse Rate 124 H Respiratory Rate 26 H Blood Pressure 90/54 L 90/55 L Pulse Oximetry 96 12/20/23 09:55 12/20/23 09:55 12/20/23 10:00 Temperature 101.8 F H 101.7 F H Pulse Rate 124 H 126 H Respiratory Rate 23 23 Blood Pressure 99/58 L Pulse Oximetry 96 96 12/20/23 10:00 12/20/23 10:05 12/20/23 10:05 Temperature 101.7 F H Pulse Rate 134 H Respiratory Rate 27 H Blood Pressure 98/57 L 86/51 L Pulse Oximetry 96 12/20/23 10:10 12/20/23 10:10 12/20/23 10:15 Temperature 101.7 F H 101.7 F H Pulse Rate 132 H 133 H Respiratory Rate 28 H Blood Pressure 89/50 L Pulse Oximetry 96 97 12/20/23 10:40 12/20/23 10:40 12/20/23 10:45 Temperature 101.5 F H 101.5 F H Pulse Rate 123 H 124 H Respiratory Rate 29 H 34 H Blood Pressure 95/54 L Pulse Oximetry 100 100 12/20/23 10:50 12/20/23 10:50 12/20/23 10:55 Temperature 101.5 F H 101.3 F H Pulse Rate 123 H 124 H Respiratory Rate 30 H 27 H Blood Pressure 94/52 L Pulse Oximetry 100 100 12/20/23 11:00 12/20/23 11:00 12/20/23 11:05 Temperature 101.3 F H 101.3 F H Pulse Rate 125 H 124 H Respiratory Rate 29 H 29 H Blood Pressure 98/53 L Pulse Oximetry 100 100 12/20/23 11:10 12/20/23 11:10 12/20/23 11:15 Temperature 101.3 F H 101.3 F H Pulse Rate 124 H 124 H Respiratory Rate 32 H 34 H Blood Pressure 88/53 L Pulse Oximetry 100 100 12/20/23 11:20 12/20/23 11:20 12/20/23 11:25 Temperature 101.3 F H 101.3 F H Pulse Rate 122 H 124 H Respiratory Rate 29 H 31 H Blood Pressure 94/53 L Pulse Oximetry 99 79 L 12/20/23 11:30 12/20/23 11:30 12/20/23 11:35 Temperature 101.3 F H 101.5 F H Pulse Rate 123 H 119 H Respiratory Rate 30 H 29 H Blood Pressure 101/55 L Pulse Oximetry 86 L 100 12/20/23 11:40 12/20/23 11:40 12/20/23 11:45 Temperature 101.5 F H 101.5 F H Pulse Rate 121 H 121 H Respiratory Rate 27 H 30 H Blood Pressure 95/56 L Pulse Oximetry 99 100 12/20/23 11:50 12/20/23 11:50 12/20/23 11:55 Temperature 101.5 F H 101.5 F H Pulse Rate 122 H 123 H Respiratory Rate 31 H 29 H Blood Pressure 100/60 Pulse Oximetry 100 12/20/23 12:00 12/20/23 12:00 Temperature 101.5 F H Pulse Rate 122 H Respiratory Rate 32 H Blood Pressure 95/54 L Pulse Oximetry 100 Oxygen Delivery Method Room Air Narrative Exam Narrative: Alert, oriented x3, moderate distress from malaise/weakness/fevers. Throat exam is challenging despite using a tongue depressor but appears to not be reddened significantly. No neck/cervical lymphadenopathy is found. Heart is tachycardic with regular rhythm and no murmur. Lungs are clear to auscultation bilaterally. Abdomen is soft, nontender, no organomegaly. Bowel sounds are active. Extremities have no ankle edema Neurologic exam is normal without chorea or other unusual arm movements. Skin exam is notable for a mild pink reticular/morbilliform rash on the neck, face and torso. There is a small insect bite on the back of the left calf which does not have a target lesion appearance. Objective Labs 12/20/23 08:25 12/20/23 08:25 Labs: Laboratory Results - last 24 hr 12/19/23 12/19/23 12/19/23 23:00 23:05 23:10 WBC 20.1 H RBC 4.43 Hgb 9.9 L Hct 31.1 L MCV 70.1 L MCH 22.4 L MCHC 31.9 RDW 18.1 H Plt Count 235 Neut % (Auto) Not Reportable Lymph % (Auto) Not Reportable [place] % (Auto) Not Reportable Eos % (Auto) Not Reportable Baso % (Auto) Not Reportable Lymph # (Auto) Not Reportable [place] # (Auto) Not Reportable Baso # (Auto) Not Reportable Total Counted 100 Seg Neutrophils % 75.0 H Band Neutrophils % 17.0 H Lymphocytes % (Manual) 6.0 L Atypical Lymphs % Monocytes % (Manual) 1.0 L Metamyelocytes % 1.0 H Neutrophils # (Manual) 00570 H RBC Morphology See below Hypochromasia 1+ H Poikilocytosis Anisocytosis 2+ H Microcytosis 2+ H Smear Path Review Sodium 128 L Potassium 3.3 L Chloride 96 L Carbon Dioxide 13 L BUN 38 H Creatinine 1.48 H Estimated GFR 51 L BUN/Creatinine Ratio 25.7 H Glucose 143 H Lactate 3.3 H Calcium 9.4 Ferritin Total Bilirubin 0.7 AST 37 H ALT 34 Alkaline Phosphatase 79 Total Creatine Kinase 254 H Total Protein 10.1 H Albumin 4.1 Globulin 6.0 H Albumin/Globulin Ratio 0.7 L Lipase 26 Procalcitonin 39.5 H Serum , Qual Negative Urine Color Urine Appearance Urine pH Ur Specific [place] Urine Protein Urine Glucose (UA) Urine Ketones Urine Occult Blood Urine Nitrate Urine Bilirubin Ur Bilirubin Confirm Urine Urobilinogen Ur Leukocyte Esterase Urine RBC Urine WBC Ur Squamous Epith Cells Ur Transition Epith Cell Amorphous Sediment Urine Bacteria Hyaline Casts Granular Casts Urine Mucus Vol Urine Centrifuged CSF Tube Number CSF Volume CSF Appearance CSF Color CSF WBC CSF RBC CSF Mononuclear WBCs CSF Polynuclear WBCs CSF Glucose CSF Total Protein CSF C.neoform/gat PCR CSF CMV DNA (PCR) CSF Enterovirus (PCR) CSF E. coli (PCR) CSF H. influenzae (PCR) CSF HSV I (PCR) CSF HSV II (PCR) CSF HHV 6 (PCR) CSF L.monocytogenes PCR CSF N. meningitidis PCR CSF Parechovirus (PCR) CSF S. agalactiae (PCR) CSF S. pneumoniae (PCR) CSF VZV (PCR) Stl C. cayetanensis PCR Stool Rotavirus (PCR) Stool Adenovirus (PCR) Stool Astrovirus (PCR) Stool Cryptosporidium PCR Stl E.coli Shiga Tox PCR St Sh/Enteroin Ecoli PCR Stl Enterotoxigenic E PCR Stool EPEC (PCR) Stl E. histolytica PCR Stool Giardia Lamblia PCR Stool Sapovirus (PCR) Stl P. shigelloides PCR St Y.enterocolitica PCR Stool Vibrio (PCR) Stl Vibrio cholerae PCR Stl Enteroaggr Ecoli PCR Stl Norovirus GI/GII PCR Ethyl Alcohol < 10 A.calcoaceticus-baumannii cmplx PCR Not detected Chlamy pneumoniae PCR Adenovirus (PCR) Bacteroides fragilis Not detected B.parapertussis DNA PCR Campylobacter (PCR) Mena albicans (PCR) Not detected Mena auris (PCR) Not detected C. glabrata (PCR) Not detected C. krusei (PCR) Not detected C. parapsilosis (PCR) Not detected C. tropicalis (PCR) Not detected C. difficile Tox (PCR) Coronavirus OC43 (PCR) Coronavirus HKU1 (PCR) Coronavirus 229E (PCR) SARS-CoV-2 (PCR) Coronavirus NL63 (PCR) C. neoform/gattii (PCR) Not detected Enterobacterales (PCR) Not detected E. cloacae complex PCR Not detected Enterococc faecalis PCR Not detected Enterococc faecium PCR Not detected E. coli (PCR) Not detected H. influenzae (PCR) Not detected Human Metapneumovir PCR Influenza Type A (PCR) Influenza Type B (PCR) Klebsiella aerogenes (PCR) Not detected Klebsiella oxytoca PCR Not detected Klebsiella pneumoniae Not detected List. monocytogenes PCR Not detected M. pneumoniae (PCR) N. meningitidis (PCR) Not detected Parainfluenza 1 (PCR) Parainfluenza 2 (PCR) Parainfluenza 3 (PCR) Parainfluenza 4 (PCR) Proteus species (PCR) Not detected RSV (PCR) Entero/Rhino (PCR) Rubella Antibody 0.7 L Salmonella (PCR) Salmonella spp. (PCR) Not detected Serratia marcescens PCR Not detected Staphylococcus sp PCR Not detected Staph aureus (PCR) Not detected mecA/C & MREJ Resist Gene Not applicable mecA/C-Methicil Resis Gene Not applicable mcr-1 Colistin Res Gene PCR Not applicable Staph epidermidis (PCR) Not detected Staph lugdunensis PCR Not detected S. maltophilia (PCR) Not detected Streptococcus sp PCR Detected Group A Strep (PCR) Detected Strep agalactiae (PCR) Not detected Strep pneumoniae (PCR) Not detected P. aeruginosa (PCR) Not detected Jewell/B-Vanco Res Genes Not applicable blaIMP Car res Gene PCR Not applicable KPC-Carbap Res Gene PCR Not applicable blaNDM Car Res Gene PCR Not applicable OXA-48 Carbapenem Resis Gene (PCR) Not applicable blaVIM Car Res Gene PCR Not applicable CTX-M Gene Resistance (PCR) Not applicable 12/19/23 12/20/23 12/20/23 23:13 00:40 01:15 WBC RBC Hgb Hct MCV MCH MCHC RDW Plt Count Neut % (Auto) Lymph % (Auto) [place] % (Auto) Eos % (Auto) Baso % (Auto) Lymph # (Auto) [place] # (Auto) Baso # (Auto) Total Counted Seg Neutrophils % Band Neutrophils % Lymphocytes % (Manual) Atypical Lymphs % Monocytes % (Manual) Metamyelocytes % Neutrophils # (Manual) RBC Morphology Hypochromasia Poikilocytosis Anisocytosis Microcytosis Smear Path Review Sodium Potassium Chloride Carbon Dioxide BUN Creatinine Estimated GFR BUN/Creatinine Ratio Glucose Lactate Calcium Ferritin Total Bilirubin AST ALT Alkaline Phosphatase Total Creatine Kinase Total Protein Albumin Globulin Albumin/Globulin Ratio Lipase Procalcitonin Serum , Qual Urine Color Yellow Urine Appearance Sl cloudy Urine pH 5.5 Ur Specific [place] >=1.030 H Urine Protein 3+ H Urine Glucose (UA) Negative Urine Ketones Negative Urine Occult Blood Trace-intact Urine Nitrate Negative Urine Bilirubin 1+ H Ur Bilirubin Confirm Negative Urine Urobilinogen 0.2 Ur Leukocyte Esterase Negative Urine RBC 0-1/hpf Urine WBC 0-1/hpf Ur Squamous Epith Cells 0-1 /hpf Ur Transition Epith Cell 0-1/hpf Amorphous Sediment 3+ Urine Bacteria Few (2-10) H Hyaline Casts 0-1/lpf Granular Casts 1-5/lpf Urine Mucus 1+ H Vol Urine Centrifuged 10ml (spun) CSF Tube Number CSF Volume CSF Appearance CSF Color CSF WBC CSF RBC CSF Mononuclear WBCs CSF Polynuclear WBCs CSF Glucose CSF Total Protein CSF C.neoform/gat PCR CSF CMV DNA (PCR) CSF Enterovirus (PCR) CSF E. coli (PCR) CSF H. influenzae (PCR) CSF HSV I (PCR) CSF HSV II (PCR) CSF HHV 6 (PCR) CSF L.monocytogenes PCR CSF N. meningitidis PCR CSF Parechovirus (PCR) CSF S. agalactiae (PCR) CSF S. pneumoniae (PCR) CSF VZV (PCR) Stl C. cayetanensis PCR Not detected Stool Rotavirus (PCR) Not detected Stool Adenovirus (PCR) Not detected Stool Astrovirus (PCR) Not detected Stool Cryptosporidium PCR Not detected Stl E.coli Shiga Tox PCR Not detected St Sh/Enteroin Ecoli PCR Not detected Stl Enterotoxigenic E PCR Not detected Stool EPEC (PCR) Not detected Stl E. histolytica PCR Not detected Stool Giardia Lamblia PCR Not detected Stool Sapovirus (PCR) Not detected Stl P. shigelloides PCR Not detected St Y.enterocolitica PCR Not detected Stool Vibrio (PCR) Not detected Stl Vibrio cholerae PCR Not detected Stl Enteroaggr Ecoli PCR Not detected Stl Norovirus GI/GII PCR Not detected Ethyl Alcohol A.calcoaceticus-baumannii cmplx PCR Chlamy pneumoniae PCR Not detected Adenovirus (PCR) Not detected Bacteroides fragilis B.parapertussis DNA PCR Not detected Campylobacter (PCR) Not detected Mena albicans (PCR) Mena auris (PCR) C. glabrata (PCR) C. krusei (PCR) C. parapsilosis (PCR) C. tropicalis (PCR) C. difficile Tox (PCR) Not detected Coronavirus OC43 (PCR) Not detected Coronavirus HKU1 (PCR) Not detected Coronavirus 229E (PCR) Not detected SARS-CoV-2 (PCR) Not detected Coronavirus NL63 (PCR) Not detected C. neoform/gattii (PCR) Enterobacterales (PCR) E. cloacae complex PCR Enterococc faecalis PCR Enterococc faecium PCR E. coli (PCR) H. influenzae (PCR) Human Metapneumovir PCR Not detected Influenza Type A (PCR) Not detected Influenza Type B (PCR) Not detected Klebsiella aerogenes (PCR) Klebsiella oxytoca PCR Klebsiella pneumoniae List. monocytogenes PCR M. pneumoniae (PCR) Not detected N. meningitidis (PCR) Parainfluenza 1 (PCR) Not detected Parainfluenza 2 (PCR) Not detected Parainfluenza 3 (PCR) Not detected Parainfluenza 4 (PCR) Not detected Proteus species (PCR) RSV (PCR) Not detected Entero/Rhino (PCR) Not detected Rubella Antibody Salmonella (PCR) Not detected Salmonella spp. (PCR) Serratia marcescens PCR Staphylococcus sp PCR Staph aureus (PCR) mecA/C & MREJ Resist Gene mecA/C-Methicil Resis Gene mcr-1 Colistin Res Gene PCR Staph epidermidis (PCR) Staph lugdunensis PCR S. maltophilia (PCR) Streptococcus sp PCR Group A Strep (PCR) Strep agalactiae (PCR) Strep pneumoniae (PCR) P. aeruginosa (PCR) Jewell/B-Vanco Res Genes blaIMP Car res Gene PCR KPC-Carbap Res Gene PCR blaNDM Car Res Gene PCR OXA-48 Carbapenem Resis Gene (PCR) blaVIM Car Res Gene PCR CTX-M Gene Resistance (PCR) 12/20/23 12/20/23 12/20/23 01:20 02:40 08:25 WBC 21.0 H RBC 3.83 L Hgb 8.5 L Hct 27.3 L MCV 71.2 L MCH 22.2 L MCHC 31.1 RDW 18.2 H Plt Count 178 Neut % (Auto) Not Reportable Lymph % (Auto) Not Reportable [place] % (Auto) Not Reportable Eos % (Auto) Not Reportable Baso % (Auto) Not Reportable Lymph # (Auto) Not Reportable [place] # (Auto) Not Reportable Baso # (Auto) Not Reportable Total Counted 100 Seg Neutrophils % 56.0 Band Neutrophils % 32.0 H Lymphocytes % (Manual) 2.0 L Atypical Lymphs % 1.0 H Monocytes % (Manual) 4.0 Metamyelocytes % 5.0 H Neutrophils # (Manual) 13133 H RBC Morphology Not Reportable Hypochromasia Poikilocytosis 1+ H Anisocytosis 2+ H Microcytosis Smear Path Review Cancelled Sodium 130 L Potassium 3.2 L Chloride 102 Carbon Dioxide 14 L BUN 36 H Creatinine 1.31 H Estimated GFR 59 L BUN/Creatinine Ratio 27.5 H Glucose 95 Lactate 2.3 H 5.4 H* Calcium 7.7 L Ferritin 93 Total Bilirubin AST ALT Alkaline Phosphatase Total Creatine Kinase Total Protein Albumin Globulin Albumin/Globulin Ratio Lipase Procalcitonin Serum , Qual Urine Color Urine Appearance Urine pH Ur Specific [place] Urine Protein Urine Glucose (UA) Urine Ketones Urine Occult Blood Urine Nitrate Urine Bilirubin Ur Bilirubin Confirm Urine Urobilinogen Ur Leukocyte Esterase Urine RBC Urine WBC Ur Squamous Epith Cells Ur Transition Epith Cell Amorphous Sediment Urine Bacteria Hyaline Casts Granular Casts Urine Mucus Vol Urine Centrifuged CSF Tube Number 3 CSF Volume 1.5 ml CSF Appearance Clear CSF Color Colorless CSF WBC 1.0 CSF RBC 3 CSF Mononuclear WBCs TNP CSF Polynuclear WBCs TNP CSF Glucose 62 CSF Total Protein 37 CSF C.neoform/gat PCR Not detected CSF CMV DNA (PCR) Not detected CSF Enterovirus (PCR) Not detected CSF E. coli (PCR) Not detected CSF H. influenzae (PCR) Not detected CSF HSV I (PCR) Not detected CSF HSV II (PCR) Not detected CSF HHV 6 (PCR) Not detected CSF L.monocytogenes PCR Not detected CSF N. meningitidis PCR Not detected CSF Parechovirus (PCR) Not detected CSF S. agalactiae (PCR) Not detected CSF S. pneumoniae (PCR) Not detected CSF VZV (PCR) Not detected Stl C. cayetanensis PCR Stool Rotavirus (PCR) Stool Adenovirus (PCR) Stool Astrovirus (PCR) Stool Cryptosporidium PCR Stl E.coli Shiga Tox PCR St Sh/Enteroin Ecoli PCR Stl Enterotoxigenic E PCR Stool EPEC (PCR) Stl E. histolytica PCR Stool Giardia Lamblia PCR Stool Sapovirus (PCR) Stl P. shigelloides PCR St Y.enterocolitica PCR Stool Vibrio (PCR) Stl Vibrio cholerae PCR Stl Enteroaggr Ecoli PCR Stl Norovirus GI/GII PCR Ethyl Alcohol A.calcoaceticus-baumannii cmplx PCR Chlamy pneumoniae PCR Adenovirus (PCR) Bacteroides fragilis B.parapertussis DNA PCR Campylobacter (PCR) Mena albicans (PCR) Mena auris (PCR) C. glabrata (PCR) C. krusei (PCR) C. parapsilosis (PCR) C. tropicalis (PCR) C. difficile Tox (PCR) Coronavirus OC43 (PCR) Coronavirus HKU1 (PCR) Coronavirus 229E (PCR) SARS-CoV-2 (PCR) Coronavirus NL63 (PCR) C. neoform/gattii (PCR) Enterobacterales (PCR) E. cloacae complex PCR Enterococc faecalis PCR Enterococc faecium PCR E. coli (PCR) H. influenzae (PCR) Human Metapneumovir PCR Influenza Type A (PCR) Influenza Type B (PCR) Klebsiella aerogenes (PCR) Klebsiella oxytoca PCR Klebsiella pneumoniae List. monocytogenes PCR M. pneumoniae (PCR) N. meningitidis (PCR) Parainfluenza 1 (PCR) Parainfluenza 2 (PCR) Parainfluenza 3 (PCR) Parainfluenza 4 (PCR) Proteus species (PCR) RSV (PCR) Entero/Rhino (PCR) Rubella Antibody Salmonella (PCR) Salmonella spp. (PCR) Serratia marcescens PCR Staphylococcus sp PCR Staph aureus (PCR) mecA/C & MREJ Resist Gene mecA/C-Methicil Resis Gene mcr-1 Colistin Res Gene PCR Staph epidermidis (PCR) Staph lugdunensis PCR S. maltophilia (PCR) Streptococcus sp PCR Group A Strep (PCR) Strep agalactiae (PCR) Strep pneumoniae (PCR) P. aeruginosa (PCR) Jewell/B-Vanco Res Genes blaIMP Car res Gene PCR KPC-Carbap Res Gene PCR blaNDM Car Res Gene PCR OXA-48 Carbapenem Resis Gene (PCR) blaVIM Car Res Gene PCR CTX-M Gene Resistance (PCR) 12/20/23 12/20/23 10:35 12:00 WBC RBC Hgb Hct MCV MCH MCHC RDW Plt Count Neut % (Auto) Lymph % (Auto) [place] % (Auto) Eos % (Auto) Baso % (Auto) Lymph # (Auto) [place] # (Auto) Baso # (Auto) Total Counted Seg Neutrophils % Band Neutrophils % Lymphocytes % (Manual) Atypical Lymphs % Monocytes % (Manual) Metamyelocytes % Neutrophils # (Manual) RBC Morphology Hypochromasia Poikilocytosis Anisocytosis Microcytosis Smear Path Review Sodium Potassium Chloride Carbon Dioxide BUN Creatinine Estimated GFR BUN/Creatinine Ratio Glucose Lactate 3.7 H Calcium Ferritin Total Bilirubin AST ALT Alkaline Phosphatase Total Creatine Kinase Total Protein Albumin Globulin Albumin/Globulin Ratio Lipase Procalcitonin Serum , Qual Urine Color Urine Appearance Urine pH Ur Specific [place] Urine Protein Urine Glucose (UA) Urine Ketones Urine Occult Blood Urine Nitrate Urine Bilirubin Ur Bilirubin Confirm Urine Urobilinogen Ur Leukocyte Esterase Urine RBC Urine WBC Ur Squamous Epith Cells Ur Transition Epith Cell Amorphous Sediment Urine Bacteria Hyaline Casts Granular Casts Urine Mucus Vol Urine Centrifuged CSF Tube Number CSF Volume CSF Appearance CSF Color CSF WBC CSF RBC CSF Mononuclear WBCs CSF Polynuclear WBCs CSF Glucose CSF Total Protein CSF C.neoform/gat PCR CSF CMV DNA (PCR) CSF Enterovirus (PCR) CSF E. coli (PCR) CSF H. influenzae (PCR) CSF HSV I (PCR) CSF HSV II (PCR) CSF HHV 6 (PCR) CSF L.monocytogenes PCR CSF N. meningitidis PCR CSF Parechovirus (PCR) CSF S. agalactiae (PCR) CSF S. pneumoniae (PCR) CSF VZV (PCR) Stl C. cayetanensis PCR Stool Rotavirus (PCR) Stool Adenovirus (PCR) Stool Astrovirus (PCR) Stool Cryptosporidium PCR Stl E.coli Shiga Tox PCR St Sh/Enteroin Ecoli PCR Stl Enterotoxigenic E PCR Stool EPEC (PCR) Stl E. histolytica PCR Stool Giardia Lamblia PCR Stool Sapovirus (PCR) Stl P. shigelloides PCR St Y.enterocolitica PCR Stool Vibrio (PCR) Stl Vibrio cholerae PCR Stl Enteroaggr Ecoli PCR Stl Norovirus GI/GII PCR Ethyl Alcohol A.calcoaceticus-baumannii cmplx PCR Chlamy pneumoniae PCR Adenovirus (PCR) Bacteroides fragilis B.parapertussis DNA PCR Campylobacter (PCR) Mena albicans (PCR) Mena auris (PCR) C. glabrata (PCR) C. krusei (PCR) C. parapsilosis (PCR) C. tropicalis (PCR) C. difficile Tox (PCR) Coronavirus OC43 (PCR) Coronavirus HKU1 (PCR) Coronavirus 229E (PCR) SARS-CoV-2 (PCR) Coronavirus NL63 (PCR) C. neoform/gattii (PCR) Enterobacterales (PCR) E. cloacae complex PCR Enterococc faecalis PCR Enterococc faecium PCR E. coli (PCR) H. influenzae (PCR) Human Metapneumovir PCR Influenza Type A (PCR) Influenza Type B (PCR) Klebsiella aerogenes (PCR) Klebsiella oxytoca PCR Klebsiella pneumoniae List. monocytogenes PCR M. pneumoniae (PCR) N. meningitidis (PCR) Parainfluenza 1 (PCR) Parainfluenza 2 (PCR) Parainfluenza 3 (PCR) Parainfluenza 4 (PCR) Proteus species (PCR) RSV (PCR) Entero/Rhino (PCR) Rubella Antibody Salmonella (PCR) Salmonella spp. (PCR) Serratia marcescens PCR Staphylococcus sp PCR Staph aureus (PCR) mecA/C & MREJ Resist Gene mecA/C-Methicil Resis Gene mcr-1 Colistin Res Gene PCR Staph epidermidis (PCR) Staph lugdunensis PCR S. maltophilia (PCR) Streptococcus sp PCR Group A Strep (PCR) Positive H Strep agalactiae (PCR) Strep pneumoniae (PCR) P. aeruginosa (PCR) Jewell/B-Vanco Res Genes blaIMP Car res Gene PCR KPC-Carbap Res Gene PCR blaNDM Car Res Gene PCR OXA-48 Carbapenem Resis Gene (PCR) blaVIM Car Res Gene PCR CTX-M Gene Resistance (PCR) PFSH Medical History (Updated 12/20/23 @ 07:56 by Khanh Manzanares MD) Mixed connective tissue disease Social History household members: family Smoking Status: Never smoker alcohol intake: current Assessment & Plan Assessment & Plan narrative: Strep pyogenes bacteremia/sepsis - IV Rocephin per discussion with ID - Dr. Vasquez - rapid strep positive - BC 07/24 Strep Pyogenes - LC CSF results negative - Procalcitonin 39.5, white blood count 21.0 - Echocardiogram - Repeat BC on 12/20 and continue to coordinate decisions on treatment duration with ID. - Xray Rt elbow - complains on swelling and tenderness in the absence of recent injuries - ICU admission, Levophed -extensive testing for alternative cause of sepsis was arranged before the rapid strep and blood culture strep results arrived. Per discussion with ID she has been checked for babesiosis, leptospirosis, West Nile virus, Ehrlichia. -additional testing for hemolysis in the context of hemoglobin dropping to 8.5 including haptoglobin and ferritin level along with peripheral smear are ordered. YING/Hypokalemia/Hyponatremia -secondary to strep pyogenes sepsis/bacteremia -creatinine 1.31, K 3.2 and Na 130. -Cautious Kcl replacement - IVFs of LR 150 ml/hour after 3 liter bolus in the ED Mixed Connective Tissue Disease - apparently w/o recent flares - in the past had treatment with prednisone DVT prophylaxis -SCDs Her mother and father are her backup decision makers Time-Based Coding :: [TOTAL MINUTES] spent with patient and on the chart (including review of chart, obtaining history, exam, reviewing outside data, placing orders, documenting exam and treatment plan, and counseling patient) on [DATE]. Quality VTE Deep Vein Thrombosis/Pulmonary Embolism Present on Admission: No
--- NOTE | 2023-12-20 13:36 | DI.RAD.S_ITS ---
PROCEDURE: XR CHEST 1V INDICATIONS: PICC placement TECHNIQUE: One view of the chest was acquired. COMPARISON: [facility], CR, XR CHEST 1V, 12/19/2023, 22:58. FINDINGS: Surgical changes and devices: Left upper extremity catheter tip projects over the upper SVC approximately 3.4 cm from the cavoatrial junction. Lungs and pleura: Lungs are clear. No pleural effusions or pneumothorax. Mediastinum: Mediastinal contours appear normal. Heart size is normal. Bones and chest wall: No suspicious bony lesions. Overlying soft tissues appear unremarkable. 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 IMPRESSION: 1. Left upper extremity PICC projects over the upper SVC approximately 3.4 cm from the cavoatrial junction. 2. No acute cardiopulmonary process. Dictated by: Scarlett Soto M.D. on 12/20/2023 at 13:53 Approved by: Scarlett Soto M.D. on 12/20/2023 at 13:58
[2023-12-20 14:01] LABS: MRSA (Nasal) PCR NOT DETECTED (Not Detect)
[2023-12-20 16:51] LABS: Lactate (Lactic Acid) 2.9 mmol/L (0.7-2.1)
[2023-12-20 18:12] LABS: Reflexed Lactate in 2 Hours Y
[2023-12-20] MEDS: SODIUM CHLORIDE 0.9% 1,000 ML 1000 ML IV (21:15)
[2023-12-20 22:04] LABS: Lactate 2HR (Lactic Acid Rflx) 3.3 mmol/L (0.7-2.1)
[2023-12-20] MEDS: SODIUM CHLORIDE 0.9% FLUSH 10 ML IV (22:21)
[2023-12-20] MEDS: cefTRIAXone 1,000 MG in SODIUM CHLORIDE 0.9% 100 ML 200 MG IV (23:25)
[2023-12-20] MEDS: BENZOCAINE/MENTHOL 1 LOZ PKT 1 EACH PO (23:29)
[2023-12-20] MEDS: SODIUM CHLORIDE 0.9% 1,000 ML 200 ML IV (23:45)
--- NOTE | 2023-12-20 23:45 | DI.CT.S_ITS ---
PROCEDURE: CT HEAD/BRAIN WO CON INDICATIONS: Strep pyogenes bacteremia/neck lymphadenopathy/dental caries TECHNIQUE: Noncontrast 4.5 mm thick angled axial sections acquired from the foramen magnum to the vertex, with coronal and sagittal reformats. For radiation dose reduction, the following was used: automated exposure control, adjustment of mA and/or kV according to patient size. COMPARISON: [facility], CT, HEAD WITHOUT CONTRAST, 11/11/2010, 21:40. FINDINGS: Image quality: Diagnostic. CSF spaces: Basal cisterns are patent. No extra-axial fluid collections. Ventricles are normal in size and shape. Brain: No midline shift. No intracranial masses or hemorrhage. Campos-white matter interface is normal. Skull and face: Calvarium and visualized facial bones are intact, without suspicious lesions. Sinuses: Visualized sinuses and mastoids are clear. IMPRESSION: No acute intracranial pathology. Dictated by: Diane Gonzales M.D. on 12/21/2023 at 2:02 Approved by: Diane Gonzales M.D. on 12/21/2023 at 2:03
--- NOTE | 2023-12-20 23:46 | DI.CT.S_ITS ---
PROCEDURE: CT SOFT TISSUE NECK WO CON INDICATIONS: Strep pyogenes bacteremia/neck lymphadenopathy/dental caries TECHNIQUE: Non-contrast 3.0 mm axial sections acquired from the sella to the aortic arch. Additional oblique axial 3.0 mm sections acquired through the pharynx. 3 mm thick coronal and sagittal reformats were generated. For radiation dose reduction, the following was used: automated exposure control. COMPARISON: None. FINDINGS: Image quality: Excellent. Lymph nodes: Bilateral enlarged lymph nodes in the anterior and posterior cervical chains, supraclavicular regions, and high bilateral axillary regions, level two and level three. Vessels: Non-opacified vessels appear normal in caliber. Neck spaces: The oropharynx, nasopharynx, and pharynx demonstrate no mucosal lesions. The vocal cords, false vocal cords, pyriform sinuses, epiglottis, vallecula, and tongue base all appear normal. Extramucosal spaces appear unremarkable. Glands: The parotid and submandibular glands appear normal, without stones. Thyroid gland appears normal . Bones: No aggressive osseous abnormality. No displaced fractures. Miscellaneous: Visualized brain and orbits appear normal. Lung apices appear clear. Superficial soft tissues appear normal. Unerupted bilateral upper and right lower wisdom teeth. IMPRESSION: Bilateral common nonspecific lymphadenopathy in the neck and chest. No CT evidence of significant periodontal disease. Dictated by: Diane Gonzales M.D. on 12/21/2023 at 2:33 Approved by: Diane Gonzales M.D. on 12/21/2023 at 2:39
--- NOTE | 2023-12-20 23:47 | DI.CT.S_ITS ---
PROCEDURE: CT MASTOID TEMPORAL INDICATIONS: Strep pyogenes bacteremia/neck lymphadenopathy/dental caries COMPARISON: None. TECHNIQUE: Noncontrast 0.6 mm thick axial sections acquired through each temporal bone separately. Coronal images are reformatted. FINDINGS: Image quality: Excellent. RIGHT: External auditory canal: Canal has a normal appearance. Middle ear: The middle ear structures, including the ossicles and tympanic membrane, appear normal. No abnormal fluid or soft tissue density. Inner ear: Inner ear is normally formed and appears unremarkable. Facial nerve appears normal throughout is course. Mastoids: Mastoid air cells are clear. LEFT: External auditory canal: Canal has a normal appearance. Middle ear: The middle ear structures, including the ossicles and tympanic membrane, appear normal. No abnormal fluid or soft tissue density. Inner ear: Inner ear is normally formed and appears unremarkable. Facial nerve appears normal throughout its course. Mastoids: Mastoid air cells are clear. MISCELLANEOUS: Visualized surrounding bones appear unremarkable. Visualized intracranial structures, including the cerebellopontine angle cisterns, appear normal. IMPRESSION: Normal temporal bone CT. Dictated by: Diane Gonzales M.D. on 12/21/2023 at 2:21 Approved by: Diane Gonzales M.D. on 12/21/2023 at 2:23
--- NOTE | 2023-12-20 23:49 | DI.CT.S_ITS ---
PROCEDURE: CT SINUS WO/W CON INDICATIONS: Strep pyogenes bacteremia/neck lymphadenopathy/dental caries TECHNIQUE: After the administration of intravenous contrast, 3.0 mm axial images acquired from the frontal sinuses to the mid-sella, with coronal and sagittal reformats. For radiation dose reduction, the following was used: automated exposure control, adjustment of mA and/or kV according to patient size. COMPARISON: None. FINDINGS: Image quality: Excellent. Maxillary Sinuses: No bony remodeling or destruction. Sinuses are clear. Ethmoid Air Cells: No bony remodeling or destruction. Mild mucosal thickening occasionally, primarily in the anterior air cells. Sphenoid Sinuses: No bony remodeling or destruction. Sinuses are clear. Frontal Sinuses: No bony remodeling or destruction. Sinuses are clear. Ostiomeatal Complexes: Ostiomeatal complexes are patent. No Mary cells. Miscellaneous: Visualized intra-orbital contents are normal. No toño bullosa. No nasal septal deviation. IMPRESSION: No significant sinus disease. Minor mucosal thickening in the ethmoid air cells. Dictated by: Diane Gonzales M.D. on 12/21/2023 at 2:27 Approved by: Diane Gonzales M.D. on 12/21/2023 at 2:30
--- NOTE | 2023-12-20 23:58 | PM.CN.EICU ---
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 Workup since then has revealed Strep pyogenes bacteremia. Rash has worsened and she has been persistently febrile. Workup has included a LP which has been unrevealing. There is some concern for a R elbow joint effusion. Patient and parents also report a history of throat discomfort/altered sensation w/o phonation change or intolerance of oral secretions. Dr. Rogers has discussed the case with ID and the patient is on vancomycin/ceftriaxone. There is also a history of camping; workup for Leptospirosis, Babeiosis, Lyme disease, Ehrlichiosis, West Nile is pending. Dr. Donavon Manzanares asked for critical care consultation. [facility] Medical History Mixed connective tissue disease Social History household members: family Smoking Status: Never smoker alcohol intake: current Current Medications Current Medications Medications: Visit Medications (administered) Generic Name Dose Route Start Last Admin Trade Name Freq PRN Reason Stop Dose Admin Benzocaine 1 each 12/20/23 22:58 12/20/23 23:29 Benzocaine/Menthol 1 Yas Pkt PO 1 each Q1HR PRN Administration Sore Throat Lactated Ringer's 1,000 mls @ 150 mls/hr 12/20/23 03:00 12/20/23 08:10 Lactated Ringers IV Infused CONT ZULMA Infusion Ceftriaxone Sodium 1,000 mg/ 100 mls @ 200 mls/hr 12/20/23 23:00 12/20/23 23:55 Sodium Chloride IV Infused Q24H ZULMA Infusion NOREPINEPHRINE BITARTRATE/D5W 4 mg in 250 mls @ 28.125 mls/hr 12/20/23 09:00 12/20/23 23:05 Levophed IV 0 mcg/kg/min TITRATE ZULMA 0 mls/hr Titration Protocol 0.1 MCG/KG/MIN Acetaminophen 1,000 mg in 100 mls @ 400 mls/hr 12/20/23 14:55 12/20/23 15:30 Ofirmev IV 12/21/23 23:00 Infused Q6H PRN Infusion Fever/Mild Pain (1-3) Sodium Chloride 10 ml 12/20/23 21:00 12/20/23 22:21 Sodium Chloride 0.9% Flush IV 10 ml BID ZULMA Administration Exam Vital Signs (past 8 hours): - 12/20/23 16:00 12/20/23 16:00 12/20/23 16:05 Temperature 103.3 F H 103.3 F H Pulse Rate 130 H 133 H Respiratory Rate 27 H 32 H Blood Pressure 100/55 L Pulse Oximetry 100 99 Oxygen Flow Rate 12/20/23 16:10 12/20/23 16:15 12/20/23 16:20 Temperature 103.1 F H 102.9 F H 102.7 F H Pulse Rate 133 H 130 H 129 H Respiratory Rate 27 H 33 H 28 H Blood Pressure Pulse Oximetry 100 100 100 Oxygen Flow Rate 12/20/23 16:25 12/20/23 16:30 12/20/23 16:30 Temperature 102.6 F H 102.6 F H Pulse Rate 130 H 128 H Respiratory Rate 26 H 34 H Blood Pressure 95/52 L Pulse Oximetry 100 100 Oxygen Flow Rate 12/20/23 16:35 12/20/23 16:40 12/20/23 16:45 Temperature 102.4 F H 102.4 F H 102.4 F H Pulse Rate 126 H 128 H 127 H Respiratory Rate 32 H 32 H 31 H Blood Pressure Pulse Oximetry 100 100 100 Oxygen Flow Rate 12/20/23 16:50 12/20/23 16:55 12/20/23 17:00 Temperature 102.2 F H 102.2 F H 102.0 F H Pulse Rate 128 H 126 H 124 H Respiratory Rate 32 H 31 H 32 H Blood Pressure Pulse Oximetry 100 100 100 Oxygen Flow Rate 12/20/23 17:00 12/20/23 17:05 12/20/23 17:10 Temperature 102.0 F H 102.0 F H Pulse Rate 127 H 128 H Respiratory Rate 32 H 27 H Blood Pressure 99/54 L Pulse Oximetry 100 100 Oxygen Flow Rate 12/20/23 17:15 12/20/23 17:20 12/20/23 17:25 Temperature 101.8 F H 101.8 F H 101.8 F H Pulse Rate 127 H 125 H 124 H Respiratory Rate 36 H 25 H 33 H Blood Pressure Pulse Oximetry 100 100 100 Oxygen Flow Rate 12/20/23 17:30 12/20/23 17:30 12/20/23 17:35 Temperature 101.8 F H 101.8 F H Pulse Rate 125 H 129 H Respiratory Rate 35 H 36 H Blood Pressure 100/51 L Pulse Oximetry 100 100 Oxygen Flow Rate 12/20/23 17:40 12/20/23 17:45 12/20/23 17:50 Temperature 101.8 F H 101.7 F H 101.7 F H Pulse Rate 126 H 125 H 127 H Respiratory Rate 32 H 32 H 30 H Blood Pressure Pulse Oximetry 100 100 100 Oxygen Flow Rate 12/20/23 17:55 12/20/23 18:00 12/20/23 18:00 Temperature 101.7 F H 101.7 F H Pulse Rate 133 H 129 H Respiratory Rate 33 H 24 Blood Pressure 100/53 L Pulse Oximetry 100 100 Oxygen Flow Rate 12/20/23 18:05 12/20/23 18:10 12/20/23 18:15 Temperature 101.8 F H 101.8 F H 101.8 F H Pulse Rate 128 H 126 H 127 H Respiratory Rate 33 H 33 H 26 H Blood Pressure Pulse Oximetry 100 100 100 Oxygen Flow Rate 12/20/23 18:20 12/20/23 18:25 12/20/23 18:30 Temperature 101.8 F H 101.8 F H 101.8 F H Pulse Rate 135 H 127 H 130 H Respiratory Rate 33 H 31 H 31 H Blood Pressure Pulse Oximetry 100 100 100 Oxygen Flow Rate 12/20/23 18:30 12/20/23 18:35 12/20/23 18:40 Temperature 101.8 F H 101.8 F H Pulse Rate 129 H 128 H Respiratory Rate 25 H 33 H Blood Pressure 101/55 L Pulse Oximetry 99 100 Oxygen Flow Rate 12/20/23 18:45 12/20/23 18:50 12/20/23 18:55 Temperature 101.8 F H 101.8 F H 102.0 F H Pulse Rate 128 H 127 H 127 H Respiratory Rate 30 H 33 H 33 H Blood Pressure Pulse Oximetry 100 100 100 Oxygen Flow Rate 12/20/23 19:00 12/20/23 19:05 12/20/23 19:10 Temperature 102.0 F H 102.0 F H 102.0 F H Pulse Rate 127 H 126 H 127 H Respiratory Rate 35 H 34 H 35 H Blood Pressure Pulse Oximetry 100 99 100 Oxygen Flow Rate 12/20/23 19:12 12/20/23 19:12 12/20/23 19:15 Temperature 102.0 F H 102.0 F H Pulse Rate 129 H 128 H Respiratory Rate 37 H 28 H Blood Pressure 115/53 L Pulse Oximetry 100 99 Oxygen Flow Rate 12/20/23 19:20 12/20/23 19:25 12/20/23 19:30 Temperature 102.2 F H 102.2 F H 102.2 F H Pulse Rate 127 H 134 H 129 H Respiratory Rate 28 H 40 H 37 H Blood Pressure Pulse Oximetry 100 99 99 Oxygen Flow Rate 0 12/20/23 19:30 12/20/23 20:00 12/20/23 20:00 Temperature 102.7 F H Pulse Rate 131 H Respiratory Rate 31 H Blood Pressure 115/55 L 103/55 L Pulse Oximetry 99 Oxygen Flow Rate 0 12/20/23 20:30 12/20/23 21:00 12/20/23 21:02 Temperature 103.3 F H 103.8 F H 103.8 F H Pulse Rate 142 H 151 H 149 H Respiratory Rate 39 H 35 H 34 H Blood Pressure Pulse Oximetry 100 100 100 Oxygen Flow Rate 0 12/20/23 21:02 12/20/23 21:30 12/20/23 21:30 Temperature 103.1 F H Pulse Rate 140 H Respiratory Rate 42 H Blood Pressure 112/53 L 112/51 L Pulse Oximetry 100 Oxygen Flow Rate 0 12/20/23 22:00 12/20/23 22:00 12/20/23 22:00 Temperature 101.3 F H 102.9 F H Pulse Rate 128 H 128 H Respiratory Rate 35 H 38 H Blood Pressure 109/54 L 109/54 L Pulse Oximetry 100 100 Oxygen Flow Rate 12/20/23 22:30 12/20/23 22:30 12/20/23 23:00 Temperature 102.2 F H 101.8 F H Pulse Rate 125 H 126 H Respiratory Rate 30 H 37 H Blood Pressure 101/53 L Pulse Oximetry 100 100 Oxygen Flow Rate 12/20/23 23:01 12/20/23 23:01 Temperature 101.8 F H Pulse Rate 127 H Respiratory Rate 28 H Blood Pressure 118/54 L Pulse Oximetry 100 Oxygen Flow Rate 0 Oxygen Delivery Method Room Air Oxygen Flow Rate 0 Const General: cooperative Resp Effort & Inspection: normal respiratory effort and able to speak in complete sentences Cardio Other: sinus tachycardia Neuro Other: RASS 0 Objective Labs 12/20/23 08:25 12/20/23 08:25 Labs: Laboratory Results - last 24 hr 12/19/23 12/19/23 12/19/23 23:00 23:05 23:10 WBC RBC Hgb Hct MCV MCH MCHC RDW Plt Count Neut % (Auto) Lymph % (Auto) [place] % (Auto) Eos % (Auto) Baso % (Auto) Lymph # (Auto) [place] # (Auto) Baso # (Auto) Total Counted 100 Seg Neutrophils % 75.0 H Band Neutrophils % 17.0 H Lymphocytes % (Manual) 6.0 L Atypical Lymphs % Monocytes % (Manual) 1.0 L Metamyelocytes % 1.0 H Neutrophils # (Manual) 43932 H RBC Morphology See below Hypochromasia 1+ H Poikilocytosis Anisocytosis 2+ H Microcytosis 2+ H Smear Path Review Sodium Potassium Chloride Carbon Dioxide BUN Creatinine Estimated GFR BUN/Creatinine Ratio Glucose Lactate Calcium Ferritin Total Creatine Kinase 254 H Urine Color Urine Appearance Urine pH Ur Specific [place] Urine Protein Urine Glucose (UA) Urine Ketones Urine Occult Blood Urine Nitrate Urine Bilirubin Ur Bilirubin Confirm Urine Urobilinogen Ur Leukocyte Esterase Urine RBC Urine WBC Ur Squamous Epith Cells Ur Transition Epith Cell Amorphous Sediment Urine Bacteria Hyaline Casts Granular Casts Urine Mucus Vol Urine Centrifuged CSF Tube Number CSF Volume CSF Appearance CSF Color CSF WBC CSF RBC CSF Mononuclear WBCs CSF Polynuclear WBCs CSF Glucose CSF Total Protein CSF C.neoform/gat PCR CSF CMV DNA (PCR) CSF Enterovirus (PCR) CSF E. coli (PCR) CSF H. influenzae (PCR) CSF HSV I (PCR) CSF HSV II (PCR) CSF HHV 6 (PCR) CSF L.monocytogenes PCR CSF N. meningitidis PCR CSF Parechovirus (PCR) CSF S. agalactiae (PCR) CSF S. pneumoniae (PCR) CSF VZV (PCR) Nasal Screen MRSA (PCR) Stl C. cayetanensis PCR Stool Rotavirus (PCR) Stool Adenovirus (PCR) Stool Astrovirus (PCR) Stool Cryptosporidium PCR Stl E.coli Shiga Tox PCR St Sh/Enteroin Ecoli PCR Stl Enterotoxigenic E PCR Stool EPEC (PCR) Stl E. histolytica PCR Stool Giardia Lamblia PCR Stool Sapovirus (PCR) Stl P. shigelloides PCR St Y.enterocolitica PCR Stool Vibrio (PCR) Stl Vibrio cholerae PCR Stl Enteroaggr Ecoli PCR Stl Norovirus GI/GII PCR A.calcoaceticus-baumannii cmplx PCR Not detected Chlamy pneumoniae PCR Adenovirus (PCR) Bacteroides fragilis Not detected B.parapertussis DNA PCR Campylobacter (PCR) Mena albicans (PCR) Not detected Mena auris (PCR) Not detected C. glabrata (PCR) Not detected C. krusei (PCR) Not detected C. parapsilosis (PCR) Not detected C. tropicalis (PCR) Not detected C. difficile Tox (PCR) Coronavirus OC43 (PCR) Coronavirus HKU1 (PCR) Coronavirus 229E (PCR) SARS-CoV-2 (PCR) Coronavirus NL63 (PCR) C. neoform/gattii (PCR) Not detected Enterobacterales (PCR) Not detected E. cloacae complex PCR Not detected Enterococc faecalis PCR Not detected Enterococc faecium PCR Not detected E. coli (PCR) Not detected H. influenzae (PCR) Not detected Human Metapneumovir PCR Influenza Type A (PCR) Influenza Type B (PCR) Klebsiella aerogenes (PCR) Not detected Klebsiella oxytoca PCR Not detected Klebsiella pneumoniae Not detected List. monocytogenes PCR Not detected M. pneumoniae (PCR) N. meningitidis (PCR) Not detected Parainfluenza 1 (PCR) Parainfluenza 2 (PCR) Parainfluenza 3 (PCR) Parainfluenza 4 (PCR) Proteus species (PCR) Not detected RSV (PCR) Entero/Rhino (PCR) Rubella Antibody 0.7 L Salmonella (PCR) Salmonella spp. (PCR) Not detected Serratia marcescens PCR Not detected Staphylococcus sp PCR Not detected Staph aureus (PCR) Not detected mecA/C & MREJ Resist Gene Not applicable mecA/C-Methicil Resis Gene Not applicable mcr-1 Colistin Res Gene PCR Not applicable Staph epidermidis (PCR) Not detected Staph lugdunensis PCR Not detected S. maltophilia (PCR) Not detected Streptococcus sp PCR Detected Group A Strep (PCR) Detected Strep agalactiae (PCR) Not detected Strep pneumoniae (PCR) Not detected P. aeruginosa (PCR) Not detected Jewell/B-Vanco Res Genes Not applicable blaIMP Car res Gene PCR Not applicable KPC-Carbap Res Gene PCR Not applicable blaNDM Car Res Gene PCR Not applicable OXA-48 Carbapenem Resis Gene (PCR) Not applicable blaVIM Car Res Gene PCR Not applicable CTX-M Gene Resistance (PCR) Not applicable 12/19/23 12/20/23 12/20/23 23:13 00:40 01:15 WBC RBC Hgb Hct MCV MCH MCHC RDW Plt Count Neut % (Auto) Lymph % (Auto) [place] % (Auto) Eos % (Auto) Baso % (Auto) Lymph # (Auto) [place] # (Auto) Baso # (Auto) Total Counted Seg Neutrophils % Band Neutrophils % Lymphocytes % (Manual) Atypical Lymphs % Monocytes % (Manual) Metamyelocytes % Neutrophils # (Manual) RBC Morphology Hypochromasia Poikilocytosis Anisocytosis Microcytosis Smear Path Review Sodium Potassium Chloride Carbon Dioxide BUN Creatinine Estimated GFR BUN/Creatinine Ratio Glucose Lactate Calcium Ferritin Total Creatine Kinase Urine Color Yellow Urine Appearance Sl cloudy Urine pH 5.5 Ur Specific [place] >=1.030 H Urine Protein 3+ H Urine Glucose (UA) Negative Urine Ketones Negative Urine Occult Blood Trace-intact Urine Nitrate Negative Urine Bilirubin 1+ H Ur Bilirubin Confirm Negative Urine Urobilinogen 0.2 Ur Leukocyte Esterase Negative Urine RBC 0-1/hpf Urine WBC 0-1/hpf Ur Squamous Epith Cells 0-1 /hpf Ur Transition Epith Cell 0-1/hpf Amorphous Sediment 3+ Urine Bacteria Few (2-10) H Hyaline Casts 0-1/lpf Granular Casts 1-5/lpf Urine Mucus 1+ H Vol Urine Centrifuged 10ml (spun) CSF Tube Number CSF Volume CSF Appearance CSF Color CSF WBC CSF RBC CSF Mononuclear WBCs CSF Polynuclear WBCs CSF Glucose CSF Total Protein CSF C.neoform/gat PCR CSF CMV DNA (PCR) CSF Enterovirus (PCR) CSF E. coli (PCR) CSF H. influenzae (PCR) CSF HSV I (PCR) CSF HSV II (PCR) CSF HHV 6 (PCR) CSF L.monocytogenes PCR CSF N. meningitidis PCR CSF Parechovirus (PCR) CSF S. agalactiae (PCR) CSF S. pneumoniae (PCR) CSF VZV (PCR) Nasal Screen MRSA (PCR) Stl C. cayetanensis PCR Not detected Stool Rotavirus (PCR) Not detected Stool Adenovirus (PCR) Not detected Stool Astrovirus (PCR) Not detected Stool Cryptosporidium PCR Not detected Stl E.coli Shiga Tox PCR Not detected St Sh/Enteroin Ecoli PCR Not detected Stl Enterotoxigenic E PCR Not detected Stool EPEC (PCR) Not detected Stl E. histolytica PCR Not detected Stool Giardia Lamblia PCR Not detected Stool Sapovirus (PCR) Not detected Stl P. shigelloides PCR Not detected St Y.enterocolitica PCR Not detected Stool Vibrio (PCR) Not detected Stl Vibrio cholerae PCR Not detected Stl Enteroaggr Ecoli PCR Not detected Stl Norovirus GI/GII PCR Not detected A.calcoaceticus-baumannii cmplx PCR Chlamy pneumoniae PCR Not detected Adenovirus (PCR) Not detected Bacteroides fragilis B.parapertussis DNA PCR Not detected Campylobacter (PCR) Not detected Mena albicans (PCR) Mena auris (PCR) C. glabrata (PCR) C. krusei (PCR) C. parapsilosis (PCR) C. tropicalis (PCR) C. difficile Tox (PCR) Not detected Coronavirus OC43 (PCR) Not detected Coronavirus HKU1 (PCR) Not detected Coronavirus 229E (PCR) Not detected SARS-CoV-2 (PCR) Not detected Coronavirus NL63 (PCR) Not detected C. neoform/gattii (PCR) Enterobacterales (PCR) E. cloacae complex PCR Enterococc faecalis PCR Enterococc faecium PCR E. coli (PCR) H. influenzae (PCR) Human Metapneumovir PCR Not detected Influenza Type A (PCR) Not detected Influenza Type B (PCR) Not detected Klebsiella aerogenes (PCR) Klebsiella oxytoca PCR Klebsiella pneumoniae List. monocytogenes PCR M. pneumoniae (PCR) Not detected N. meningitidis (PCR) Parainfluenza 1 (PCR) Not detected Parainfluenza 2 (PCR) Not detected Parainfluenza 3 (PCR) Not detected Parainfluenza 4 (PCR) Not detected Proteus species (PCR) RSV (PCR) Not detected Entero/Rhino (PCR) Not detected Rubella Antibody Salmonella (PCR) Not detected Salmonella spp. (PCR) Serratia marcescens PCR Staphylococcus sp PCR Staph aureus (PCR) mecA/C & MREJ Resist Gene mecA/C-Methicil Resis Gene mcr-1 Colistin Res Gene PCR Staph epidermidis (PCR) Staph lugdunensis PCR S. maltophilia (PCR) Streptococcus sp PCR Group A Strep (PCR) Strep agalactiae (PCR) Strep pneumoniae (PCR) P. aeruginosa (PCR) Jewell/B-Vanco Res Genes blaIMP Car res Gene PCR KPC-Carbap Res Gene PCR blaNDM Car Res Gene PCR OXA-48 Carbapenem Resis Gene (PCR) blaVIM Car Res Gene PCR CTX-M Gene Resistance (PCR) 12/20/23 12/20/23 12/20/23 01:20 02:40 08:25 WBC 21.0 H RBC 3.83 L Hgb 8.5 L Hct 27.3 L MCV 71.2 L MCH 22.2 L MCHC 31.1 RDW 18.2 H Plt Count 178 Neut % (Auto) Not Reportable Lymph % (Auto) Not Reportable [place] % (Auto) Not Reportable Eos % (Auto) Not Reportable Baso % (Auto) Not Reportable Lymph # (Auto) Not Reportable [place] # (Auto) Not Reportable Baso # (Auto) Not Reportable Total Counted 100 Seg Neutrophils % 56.0 Band Neutrophils % 32.0 H Lymphocytes % (Manual) 2.0 L Atypical Lymphs % 1.0 H Monocytes % (Manual) 4.0 Metamyelocytes % 5.0 H Neutrophils # (Manual) 85732 H RBC Morphology Not Reportable Hypochromasia Poikilocytosis 1+ H Anisocytosis 2+ H Microcytosis Smear Path Review Cancelled Sodium 130 L Potassium 3.2 L Chloride 102 Carbon Dioxide 14 L BUN 36 H Creatinine 1.31 H Estimated GFR 59 L BUN/Creatinine Ratio 27.5 H Glucose 95 Lactate 2.3 H 5.4 H* Calcium 7.7 L Ferritin 93 Total Creatine Kinase Urine Color Urine Appearance Urine pH Ur Specific [place] Urine Protein Urine Glucose (UA) Urine Ketones Urine Occult Blood Urine Nitrate Urine Bilirubin Ur Bilirubin Confirm Urine Urobilinogen Ur Leukocyte Esterase Urine RBC Urine WBC Ur Squamous Epith Cells Ur Transition Epith Cell Amorphous Sediment Urine Bacteria Hyaline Casts Granular Casts Urine Mucus Vol Urine Centrifuged CSF Tube Number 3 CSF Volume 1.5 ml CSF Appearance Clear CSF Color Colorless CSF WBC 1.0 CSF RBC 3 CSF Mononuclear WBCs TNP CSF Polynuclear WBCs TNP CSF Glucose 62 CSF Total Protein 37 CSF C.neoform/gat PCR Not detected CSF CMV DNA (PCR) Not detected CSF Enterovirus (PCR) Not detected CSF E. coli (PCR) Not detected CSF H. influenzae (PCR) Not detected CSF HSV I (PCR) Not detected CSF HSV II (PCR) Not detected CSF HHV 6 (PCR) Not detected CSF L.monocytogenes PCR Not detected CSF N. meningitidis PCR Not detected CSF Parechovirus (PCR) Not detected CSF S. agalactiae (PCR) Not detected CSF S. pneumoniae (PCR) Not detected CSF VZV (PCR) Not detected Nasal Screen MRSA (PCR) Stl C. cayetanensis PCR Stool Rotavirus (PCR) Stool Adenovirus (PCR) Stool Astrovirus (PCR) Stool Cryptosporidium PCR Stl E.coli Shiga Tox PCR St Sh/Enteroin Ecoli PCR Stl Enterotoxigenic E PCR Stool EPEC (PCR) Stl E. histolytica PCR Stool Giardia Lamblia PCR Stool Sapovirus (PCR) Stl P. shigelloides PCR St Y.enterocolitica PCR Stool Vibrio (PCR) Stl Vibrio cholerae PCR Stl Enteroaggr Ecoli PCR Stl Norovirus GI/GII PCR A.calcoaceticus-baumannii cmplx PCR Chlamy pneumoniae PCR Adenovirus (PCR) Bacteroides fragilis B.parapertussis DNA PCR Campylobacter (PCR) Mena albicans (PCR) Mena auris (PCR) C. glabrata (PCR) C. krusei (PCR) C. parapsilosis (PCR) C. tropicalis (PCR) C. difficile Tox (PCR) Coronavirus OC43 (PCR) Coronavirus HKU1 (PCR) Coronavirus 229E (PCR) SARS-CoV-2 (PCR) Coronavirus NL63 (PCR) C. neoform/gattii (PCR) Enterobacterales (PCR) E. cloacae complex PCR Enterococc faecalis PCR Enterococc faecium PCR E. coli (PCR) H. influenzae (PCR) Human Metapneumovir PCR Influenza Type A (PCR) Influenza Type B (PCR) Klebsiella aerogenes (PCR) Klebsiella oxytoca PCR Klebsiella pneumoniae List. monocytogenes PCR M. pneumoniae (PCR) N. meningitidis (PCR) Parainfluenza 1 (PCR) Parainfluenza 2 (PCR) Parainfluenza 3 (PCR) Parainfluenza 4 (PCR) Proteus species (PCR) RSV (PCR) Entero/Rhino (PCR) Rubella Antibody Salmonella (PCR) Salmonella spp. (PCR) Serratia marcescens PCR Staphylococcus sp PCR Staph aureus (PCR) mecA/C & MREJ Resist Gene mecA/C-Methicil Resis Gene mcr-1 Colistin Res Gene PCR Staph epidermidis (PCR) Staph lugdunensis PCR S. maltophilia (PCR) Streptococcus sp PCR Group A Strep (PCR) Strep agalactiae (PCR) Strep pneumoniae (PCR) P. aeruginosa (PCR) Jewell/B-Vanco Res Genes blaIMP Car res Gene PCR KPC-Carbap Res Gene PCR blaNDM Car Res Gene PCR OXA-48 Carbapenem Resis Gene (PCR) blaVIM Car Res Gene PCR CTX-M Gene Resistance (PCR) 12/20/23 12/20/23 12/20/23 10:35 11:00 12:00 WBC RBC Hgb Hct MCV MCH MCHC RDW Plt Count Neut % (Auto) Lymph % (Auto) [place] % (Auto) Eos % (Auto) Baso % (Auto) Lymph # (Auto) [place] # (Auto) Baso # (Auto) Total Counted Seg Neutrophils % Band Neutrophils % Lymphocytes % (Manual) Atypical Lymphs % Monocytes % (Manual) Metamyelocytes % Neutrophils # (Manual) RBC Morphology Hypochromasia Poikilocytosis Anisocytosis Microcytosis Smear Path Review Sodium Potassium Chloride Carbon Dioxide BUN Creatinine Estimated GFR BUN/Creatinine Ratio Glucose Lactate 3.7 H Calcium Ferritin Total Creatine Kinase Urine Color Urine Appearance Urine pH Ur Specific [place] Urine Protein Urine Glucose (UA) Urine Ketones Urine Occult Blood Urine Nitrate Urine Bilirubin Ur Bilirubin Confirm Urine Urobilinogen Ur Leukocyte Esterase Urine RBC Urine WBC Ur Squamous Epith Cells Ur Transition Epith Cell Amorphous Sediment Urine Bacteria Hyaline Casts Granular Casts Urine Mucus Vol Urine Centrifuged CSF Tube Number CSF Volume CSF Appearance CSF Color CSF WBC CSF RBC CSF Mononuclear WBCs CSF Polynuclear WBCs CSF Glucose CSF Total Protein CSF C.neoform/gat PCR CSF CMV DNA (PCR) CSF Enterovirus (PCR) CSF E. coli (PCR) CSF H. influenzae (PCR) CSF HSV I (PCR) CSF HSV II (PCR) CSF HHV 6 (PCR) CSF L.monocytogenes PCR CSF N. meningitidis PCR CSF Parechovirus (PCR) CSF S. agalactiae (PCR) CSF S. pneumoniae (PCR) CSF VZV (PCR) Nasal Screen MRSA (PCR) Not detected Stl C. cayetanensis PCR Stool Rotavirus (PCR) Stool Adenovirus (PCR) Stool Astrovirus (PCR) Stool Cryptosporidium PCR Stl E.coli Shiga Tox PCR St Sh/Enteroin Ecoli PCR Stl Enterotoxigenic E PCR Stool EPEC (PCR) Stl E. histolytica PCR Stool Giardia Lamblia PCR Stool Sapovirus (PCR) Stl P. shigelloides PCR St Y.enterocolitica PCR Stool Vibrio (PCR) Stl Vibrio cholerae PCR Stl Enteroaggr Ecoli PCR Stl Norovirus GI/GII PCR A.calcoaceticus-baumannii cmplx PCR Chlamy pneumoniae PCR Adenovirus (PCR) Bacteroides fragilis B.parapertussis DNA PCR Campylobacter (PCR) Mena albicans (PCR) Mena auris (PCR) C. glabrata (PCR) C. krusei (PCR) C. parapsilosis (PCR) C. tropicalis (PCR) C. difficile Tox (PCR) Coronavirus OC43 (PCR) Coronavirus HKU1 (PCR) Coronavirus 229E (PCR) SARS-CoV-2 (PCR) Coronavirus NL63 (PCR) C. neoform/gattii (PCR) Enterobacterales (PCR) E. cloacae complex PCR Enterococc faecalis PCR Enterococc faecium PCR E. coli (PCR) H. influenzae (PCR) Human Metapneumovir PCR Influenza Type A (PCR) Influenza Type B (PCR) Klebsiella aerogenes (PCR) Klebsiella oxytoca PCR Klebsiella pneumoniae List. monocytogenes PCR M. pneumoniae (PCR) N. meningitidis (PCR) Parainfluenza 1 (PCR) Parainfluenza 2 (PCR) Parainfluenza 3 (PCR) Parainfluenza 4 (PCR) Proteus species (PCR) RSV (PCR) Entero/Rhino (PCR) Rubella Antibody Salmonella (PCR) Salmonella spp. (PCR) Serratia marcescens PCR Staphylococcus sp PCR Staph aureus (PCR) mecA/C & MREJ Resist Gene mecA/C-Methicil Resis Gene mcr-1 Colistin Res Gene PCR Staph epidermidis (PCR) Staph lugdunensis PCR S. maltophilia (PCR) Streptococcus sp PCR Group A Strep (PCR) Positive H Strep agalactiae (PCR) Strep pneumoniae (PCR) P. aeruginosa (PCR) Jewell/B-Vanco Res Genes blaIMP Car res Gene PCR KPC-Carbap Res Gene PCR blaNDM Car Res Gene PCR OXA-48 Carbapenem Resis Gene (PCR) blaVIM Car Res Gene PCR CTX-M Gene Resistance (PCR) 12/20/23 12/20/23 16:30 21:47 WBC RBC Hgb Hct MCV MCH MCHC RDW Plt Count Neut % (Auto) Lymph % (Auto) [place] % (Auto) Eos % (Auto) Baso % (Auto) Lymph # (Auto) [place] # (Auto) Baso # (Auto) Total Counted Seg Neutrophils % Band Neutrophils % Lymphocytes % (Manual) Atypical Lymphs % Monocytes % (Manual) Metamyelocytes % Neutrophils # (Manual) RBC Morphology Hypochromasia Poikilocytosis Anisocytosis Microcytosis Smear Path Review Sodium Potassium Chloride Carbon Dioxide BUN Creatinine Estimated GFR BUN/Creatinine Ratio Glucose Lactate 2.9 H 3.3 H Calcium Ferritin Total Creatine Kinase Urine Color Urine Appearance Urine pH Ur Specific [place] Urine Protein Urine Glucose (UA) Urine Ketones Urine Occult Blood Urine Nitrate Urine Bilirubin Ur Bilirubin Confirm Urine Urobilinogen Ur Leukocyte Esterase Urine RBC Urine WBC Ur Squamous Epith Cells Ur Transition Epith Cell Amorphous Sediment Urine Bacteria Hyaline Casts Granular Casts Urine Mucus Vol Urine Centrifuged CSF Tube Number CSF Volume CSF Appearance CSF Color CSF WBC CSF RBC CSF Mononuclear WBCs CSF Polynuclear WBCs CSF Glucose CSF Total Protein CSF C.neoform/gat PCR CSF CMV DNA (PCR) CSF Enterovirus (PCR) CSF E. coli (PCR) CSF H. influenzae (PCR) CSF HSV I (PCR) CSF HSV II (PCR) CSF HHV 6 (PCR) CSF L.monocytogenes PCR CSF N. meningitidis PCR CSF Parechovirus (PCR) CSF S. agalactiae (PCR) CSF S. pneumoniae (PCR) CSF VZV (PCR) Nasal Screen MRSA (PCR) Stl C. cayetanensis PCR Stool Rotavirus (PCR) Stool Adenovirus (PCR) Stool Astrovirus (PCR) Stool Cryptosporidium PCR Stl E.coli Shiga Tox PCR St Sh/Enteroin Ecoli PCR Stl Enterotoxigenic E PCR Stool EPEC (PCR) Stl E. histolytica PCR Stool Giardia Lamblia PCR Stool Sapovirus (PCR) Stl P. shigelloides PCR St Y.enterocolitica PCR Stool Vibrio (PCR) Stl Vibrio cholerae PCR Stl Enteroaggr Ecoli PCR Stl Norovirus GI/GII PCR A.calcoaceticus-baumannii cmplx PCR Chlamy pneumoniae PCR Adenovirus (PCR) Bacteroides fragilis B.parapertussis DNA PCR Campylobacter (PCR) Mena albicans (PCR) Mena auris (PCR) C. glabrata (PCR) C. krusei (PCR) C. parapsilosis (PCR) C. tropicalis (PCR) C. difficile Tox (PCR) Coronavirus OC43 (PCR) Coronavirus HKU1 (PCR) Coronavirus 229E (PCR) SARS-CoV-2 (PCR) Coronavirus NL63 (PCR) C. neoform/gattii (PCR) Enterobacterales (PCR) E. cloacae complex PCR Enterococc faecalis PCR Enterococc faecium PCR E. coli (PCR) H. influenzae (PCR) Human Metapneumovir PCR Influenza Type A (PCR) Influenza Type B (PCR) Klebsiella aerogenes (PCR) Klebsiella oxytoca PCR Klebsiella pneumoniae List. monocytogenes PCR M. pneumoniae (PCR) N. meningitidis (PCR) Parainfluenza 1 (PCR) Parainfluenza 2 (PCR) Parainfluenza 3 (PCR) Parainfluenza 4 (PCR) Proteus species (PCR) RSV (PCR) Entero/Rhino (PCR) Rubella Antibody Salmonella (PCR) Salmonella spp. (PCR) Serratia marcescens PCR Staphylococcus sp PCR Staph aureus (PCR) mecA/C & MREJ Resist Gene mecA/C-Methicil Resis Gene mcr-1 Colistin Res Gene PCR Staph epidermidis (PCR) Staph lugdunensis PCR S. maltophilia (PCR) Streptococcus sp PCR Group A Strep (PCR) Strep agalactiae (PCR) Strep pneumoniae (PCR) P. aeruginosa (PCR) Jewell/B-Vanco Res Genes blaIMP Car res Gene PCR KPC-Carbap Res Gene PCR blaNDM Car Res Gene PCR OXA-48 Carbapenem Resis Gene (PCR) blaVIM Car Res Gene PCR CTX-M Gene Resistance (PCR) Assessment & Plan Assessment and plan (1) Sepsis: Qualifiers: Sepsis type: Streptococcus group A Sepsis acute organ dysfunction status: with acute organ dysfunction Severe sepsis acute organ dysfunction type: acute renal failure Acute renal failure type: unspecified Severe sepsis shock status: unspecified Qualified Code(s): A40.0 - Sepsis due to streptococcus, group A; R65.20 - Severe sepsis without septic shock; N17.9 - Acute kidney failure, unspecified Status: Acute Plan: -Followup on Erhlichosis, Babeiosis, Lyme, West Nile, Leptospirosis -Check Rickettsial panel -NE gtt at standby -Continue vancomycin/ceftriaxone -Facial/neck/cranial imaging given pt reports of throat discomfort and dental caries (2) Acute kidney injury: Status: Acute Plan: -Continue IVF; will not change to balanced type given mild hypoNa (3) Sepsis due to Streptococcus pyogenes: Status: Acute Plan: -See above (4) Hyponatremia: Status: Acute Plan: -See above; follow Time-Based Coding :: 61' spent with patient and on the chart (including review of chart, obtaining history, exam, reviewing outside data, placing orders, documenting exam and treatment plan, and counseling patient) on [12/21/2023].
[2023-12-21] VITALS (50 sets, daily range): BP systolic 91–124; BP diastolic 45–60; PULSE 119–143; RESP 21–39; TEMP 38.2–39.8; O2SAT 91–100
[2023-12-21] MEDS: TRAMADOL 50 MG TABLET PO (02:49)
[2023-12-21] MEDS: MORPHINE 2 MG/ML INJ 1 MG IV (04:00)
[2023-12-21] MEDS: ACETAMINOPHEN IV 1,000 MG/100 ML VIAL 400 MG IV ×3 (04:27→18:34)
--- NOTE | 2023-12-21 04:45 | PC.NURSE ---
Pt remained tachycardic, tachypneic, and febrile t/out the night. Her lactate increased as well. She was given a 1L bolus of NS and her mIVF was increased from 100 to 300 mL/hr. She was reporting generalized pain in her joints at 8/10 all night. She was given a 1x PO tramadol with no effect. She was then given a 1x dose IV morphine which brought her pain from 8 down to a 6. Due to her pain she was unable to make many independent movements, specifically in her RUE which she could barely move at all. 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 Tele-ICU also involved overnight - CT head, neck, sinus ordered. Neuro: A&Ox4. Voice very soft Pain: Generalized joint pain Cardiac: ST. Hypotensive - NE able to weaned off. Febrile, tmax 104f Pulm: LS CTA. RA. Taking shallow breaths GI: Able to tolerate only small sips of water, having frequent liquid, green diarrhea - incontinent : Gallardo with good output Skin: Maceration in groin and buttocks Access: DL PICC. PIVx1 Family: Dad stayed overnight, Mom will return in the AM
[2023-12-21 05:10] LABS: Blood Urea Nitrogen 18 mg/dL (7-17); Calcium 6.8 mg/dL (8.4-10.2); Carbon Dioxide 14 mmol/L (22-32); Chloride 110 mmol/L (98-107); Estimated Glomerular Filt Rate > 60 mL/min (>60); Glucose 93 mg/dL (70-100); HEMOLYSIS < 15 (0-50); Potassium 3.1 mmol/L (3.4-5.1); Sodium 133 mmol/L (137-145)
[2023-12-21 05:11] LABS: Hematocrit 24.2 % (36-46); Hemoglobin 7.6 g/dL (12.0-16.0); Mean Corpuscular HGB Conc 31.4 % (30-36); Mean Corpuscular Hemoglobin 22.1 PG (26-34); Mean Corpuscular Volume 70.2 fL (80-100); Platelet Count 137 X10^3/uL (150-400); Red Blood Cell Count 3.45 X10^6/uL (4.0-5.2); Red Cell Distribution Width 18.7 % (11.6-14.8); White Blood Cell Count 22.5 X10^3/uL (4.5-11.0)
[2023-12-21 05:12] LABS: Add Manual Diff / Slide Review YES
--- NOTE | 2023-12-21 05:23 | PC.NURSE ---
Messages to tool liaison hospitalist: 2043: 230 - Jennifer Huynh. Here with septic shock from strep A, scarlet fever. Her HR has increased from 120s at 1900 to 140s. Her temperature is up to 103.1 from 102. She is already on norepi for BP support. Her toes and fingers are getting dusky with >3 cap refill. I was told she got 4L of fluid in the ED and she is on 100 mL/hr NS. Can we try giving her another fluid bolus? I will be giving her IV tylenol at 2130. - 1L NS bolus ordered, tele mask former called, CTs ordered 2309: Okay. Her lactate is back up to 3.3 from 2.9. Would you like to increase her maintenance IVF rate? She is not able to drink much and she is having liquid diarrhea frequently. Could we try IV toradol for pain? - increased mIVF from 100 to 200 mL/hr 0122: Can we please give 230 something for pain. She can't move with wincing and says everything hurts constantly. She has not been able to sleep at all and is not taking normal breaths because everything hurts - PO tramadol ordered 0337: Room 230 - Her pain is still a 8.5/10 after the tramadol. We need to give her something IV.This high pain is unacceptable. Her HR is still 140s and her temp is back up to 103.3f but I can't give tylenol until 0500. I think she needs more fluid - mIVF increased from 200 to 300 mL/hr, IV morphine ordered 0522: 230 - morning labs. Potassium is 3.1 - we need replacements. We also haven't checked a Magnesium or Phosph which I think we should add on. Her total calcium is 6.8 so she should also probably get calcium replacement which would help her pressure too.. Her WBC are up and I think we should give her another fluid bolus because her HR is still 140, her temp is still 103.3f and her pain is 6/10 after morphine. Could we try 25-50 mcg of fentanyl for her pain? - no new orders as of 604
[2023-12-21 06:44] LABS: Neutrophils Absolute Manual 21150 /uL (3000-5900); Total Cells Counted 100
[2023-12-21 06:45] LABS: Anisocytosis 1+
[2023-12-21 06:46] LABS: Hypochromasia 2+; Microcytosis 2+
[2023-12-21 06:47] LABS: Rouleaux 1+; Toxic Granulation Present; Toxic Vacuolation Present
[2023-12-21] MEDS: SODIUM CHLORIDE 0.9% 1,000 ML 300 ML IV ×4 (06:47→17:06)
[2023-12-21 06:48] LABS: Platelet Estimate Decreased on smear
[2023-12-21] MEDS: POTASSIUM CHLORIDE IN WATER 10 MEQ/100 ML PIGGYBACK 100 MEQ IV ×4 (08:48→12:10)
[2023-12-21 08:52] LABS: Magnesium 1.4 mg/dL (1.6-2.3); Phosphorous 1.6 mg/dL (2.5-4.5)
[2023-12-21] MEDS: HYDROMORPHONE 0.5 MG INJ IV ×2 (09:52→22:55)
--- NOTE | 2023-12-21 09:52 | PM.ICURNDS ---
- :: This patient was seen via real time interactive two-way audiovisual telecommunication. pt imrpoving, remains off vasopressors, is awake and doign well. remains tachycardic, but on clinamycin and ceftriaxone. Currently pending TTE. source is from step pharyngitis. if here is a increase in creatitine would also check urine casts
[2023-12-21] MEDS: CLINDAMYCIN 900 MG/50 ML PIGGYBACK 50 MG IV ×2 (09:53→17:05)
[2023-12-21] MEDS: SODIUM CHLORIDE 0.9% FLUSH 10 ML IV ×2 (09:54→20:25)
[2023-12-21] MEDS: VANCOMYCIN 1,000 MG/200 ML PIGGYBACK 200 MG IV ×3 (09:59→20:24)
[2023-12-21 11:11] LABS: Vancomycin Trough 8.4 ug/mL (10-20)
[2023-12-21] MEDS: POTASSIUM PHOSPHATE 30 MMOL in SODIUM CHLORIDE 0.9% 500 ML 127.5 MMOL IV (14:06)
[2023-12-21] MEDS: MAGNESIUM SULFATE 2 GM/50 ML PIGGYBACK IV (14:08)
--- NOTE | 2023-12-21 14:45 | CM.DANOTE ---
Patient is a 23 yo female who was admitted INPT Status on 12/20/23 for n/v/fever. Pt shows as having for insurance but parents state she is no longer on insurance and her PCP was Renetta Liu. EMR was reviewed. Per MD, pt with hx of mixed connective tissue disease with lower immune system and testing positive for Strep bacteremia, sepsis, and getting IV-Abx and Echo as pt has remained tachy. Echo completed but results pending. Possible IV-Abx needed at d/c pending cultures and test results. Possible PT eval tomorrow if pt more medically appropriate and still showing signs of weakness. SW met bedside with pt and her parents and explained role and they confirm that pt lives at home with them in [place] and is active and independent at baseline and drives and is currently working part-time. Pt does not use DME for ambulation but has a hx of sore joints when her mixed connective tissue disease is impacted or flares up. No hx of HH or SNF or hospitalizations since she was very young. Pt still clearly very sick and weak. Parents hopeful to get the Echo results soon as they are worried about her heart and aware that pt might need IV-Abx at d/c. SW discussed potential options of home infusion vs outpt infusion clinic pending the frequency and coverage through insurance. Parents and pt state that currently pt does not have insurances as they state that once she turned 23 yo she dropped off the [employer]. Pt only working part-time at a job that does not have insurance option for her and likely would qualify for [employer]. MEAGHAN emailed Admission Counselors asking them to confirm pt not active with insurance and assisting with enrolling her in [employer] when they return to the office tomorrow after the Holiday today. Both parents are retired now this year and confirm that they can assist as needed at d/c and provide transport. Plan: SW to follow closely for Echo results and cultures to determine if IV-Abx vs PO needed at d/c. SW to follow closely for AD Counselors to assist with confirming insurance for coverage of her hospital admission and possible d/c coordination needs. MARILYN Gomes Discharge Planning/Care Management CM Discharge Assessment Start: 12/21/23 14:42 Freq: Status: Active Protocol: Document 12/21/23 14:42 BF (Rec: 12/21/23 14:45 BF [id number]) Discharge Planning Assessment Assigned Drafting Instructor MARILYN Noe DPOA/Assigned Designee Name informally parents Advance Directives? No Advance Directives on File No History Provided By Patient,Family Member,Medical Record Has Patient been admitted in last 30 No days? Prior Living Arrangements House Household Members family Comment Lives with her parents in [place] Type of transporation used prior to Drives own vehicle admit Independent with ADL's Yes Is patient alert and oriented? Yes Caregiver for Another No Barriers to Discharge No Discharge Plan Home Community Services IV Therapy Transportation Arrangement Parents can provide transport Referrals Initiated Other Additional Comment follow closely to r/o home IV- abx at d/c Whiteboard Updated in Patient Room with Yes name and ext. # of Drafting Instructor Review Status In Process Please Provide Date Initial DC 12/21/23 Assessment Was Performed Next Review Type Continued Stay Review
[2023-12-21] MEDS: OXYCODONE 5 MG/5 ML ORAL SOLUTION PO (15:30)
--- NOTE | 2023-12-21 17:18 | PM.PN.1 ---
Subjective Subjective Interval history: 23 year old female with GAS bacteremia due to strep throat. Has diffuse joint pain, continued fever. Was on ceftriaxone, changed to clindamycin, penicillin, and vanco pending sensitivites. Remains persistently febrile. Hg is also lower. TTE today did not show obvious vegetations. She does feel a bit stronger and better today overall compared to yesterday. Exam Vital Signs (past 8 hours): - 12/21/23 09:30 12/21/23 09:30 12/21/23 09:52 Temperature 102.0 F H 102.0 F H Pulse Rate 132 H Respiratory Rate 28 H Blood Pressure 116/55 L Pulse Oximetry 99 Oxygen Delivery Method 12/21/23 10:00 12/21/23 10:00 12/21/23 10:00 Temperature 102.2 F H Pulse Rate 133 H Respiratory Rate 24 Blood Pressure 115/58 L Pulse Oximetry 97 Oxygen Delivery Method Room Air 12/21/23 10:30 12/21/23 10:30 12/21/23 11:00 Temperature 102.4 F H Pulse Rate 133 H Respiratory Rate 24 Blood Pressure 113/55 L 114/55 L Pulse Oximetry 98 Oxygen Delivery Method 12/21/23 11:00 12/21/23 11:30 12/21/23 11:30 Temperature 102.7 F H 102.4 F H Pulse Rate 138 H 134 H Respiratory Rate 27 H 23 Blood Pressure 99/52 L Pulse Oximetry 97 98 Oxygen Delivery Method 12/21/23 12:00 12/21/23 12:00 12/21/23 12:30 Temperature 102.2 F H Pulse Rate 134 H Respiratory Rate 31 H Blood Pressure 103/51 L 91/45 L Pulse Oximetry 98 Oxygen Delivery Method 12/21/23 12:30 12/21/23 13:00 12/21/23 13:00 Temperature 101.7 F H 101.3 F H Pulse Rate 128 H 121 H Respiratory Rate 25 H 22 Blood Pressure 93/46 L Pulse Oximetry 98 97 Oxygen Delivery Method 12/21/23 13:30 12/21/23 13:30 12/21/23 14:00 Temperature 101.1 F H Pulse Rate 121 H Respiratory Rate 22 Blood Pressure 100/46 L 106/52 L Pulse Oximetry 97 Oxygen Delivery Method 12/21/23 14:00 12/21/23 14:00 12/21/23 14:30 Temperature 100.9 F H 100.8 F H Pulse Rate 128 H 122 H Respiratory Rate 25 H 27 H Blood Pressure Pulse Oximetry 97 97 Oxygen Delivery Method Room Air 12/21/23 14:30 12/21/23 15:00 12/21/23 15:00 Temperature 100.9 F H Pulse Rate 124 H Respiratory Rate 28 H Blood Pressure 98/47 L 104/50 L Pulse Oximetry 95 Oxygen Delivery Method 12/21/23 15:30 12/21/23 15:30 12/21/23 15:30 Temperature 100.9 F H 100.9 F H Pulse Rate 126 H Respiratory Rate 30 H Blood Pressure 108/52 L Pulse Oximetry 93 Oxygen Delivery Method 12/21/23 16:00 12/21/23 16:00 12/21/23 16:30 Temperature 101.1 F H 101.1 F H Pulse Rate 131 H 120 H Respiratory Rate 28 H 21 Blood Pressure 100/49 L Pulse Oximetry 93 91 Oxygen Delivery Method 12/21/23 16:30 12/21/23 17:00 12/21/23 17:00 Temperature 101.1 F H Pulse Rate 128 H Respiratory Rate 26 H Blood Pressure 109/51 L 109/53 L Pulse Oximetry 92 Oxygen Delivery Method Oxygen Delivery Method Room Air Oxygen Flow Rate 0 Narrative Exam Narrative: Gen: Ill appearing female, lethargic but alert and oriented, no acute distress but acutely ill appearing HEENT: tender predominantly L but also R lymphadenopathy of her neck. MMM CV: RRR no m/r/g Pulm: CTA b/l Abd: S diffusely mildly tender, ND Ext: diffuse edema all extremities, diffusely warm. MSK: diffuse joint tenderness in multiple joints as well as multiple muscle groups. No obvious overlying joint erythema or effusion on exam. Papular eruptions on her chest and upper extremities with an erythematous base, scarlatiniform in nature. Objective Labs 12/21/23 04:35 12/21/23 04:35 Labs: Laboratory Results - last 24 hr 12/20/23 12/20/23 12/21/23 08:25 21:47 04:35 WBC 22.5 H RBC 3.45 L Hgb 7.6 L Hct 24.2 L MCV 70.2 L MCH 22.1 L MCHC 31.4 RDW 18.7 H Plt Count 137 L Neut % (Auto) Not Reportable Lymph % (Auto) Not Reportable [place] % (Auto) Not Reportable Eos % (Auto) Not Reportable Baso % (Auto) Not Reportable Lymph # (Auto) Not Reportable [place] # (Auto) Not Reportable Baso # (Auto) Not Reportable Total Counted 100 Seg Neutrophils % 63.0 Band Neutrophils % 31.0 H Lymphocytes % (Manual) 2.0 L Monocytes % (Manual) 1.0 L Metamyelocytes % 3.0 H Neutrophils # (Manual) 29384 H Toxic Granulation Present H Toxic Vacuolation Present H Platelet Estimate Decreased on smear RBC Morphology See below Hypochromasia 2+ H Anisocytosis 1+ H Microcytosis 2+ H Rouleaux 1+ H Sodium 133 L Potassium 3.1 L Chloride 110 H Carbon Dioxide 14 L BUN 18 H Creatinine 0.75 Estimated GFR > 60 BUN/Creatinine Ratio 24.0 H Glucose 93 Lactate 3.3 H Calcium 6.8 L Phosphorus 1.6 L Magnesium 1.4 L Vancomycin Trough 12/21/23 10:30 WBC RBC Hgb Hct MCV MCH MCHC RDW Plt Count Neut % (Auto) Lymph % (Auto) [place] % (Auto) Eos % (Auto) Baso % (Auto) Lymph # (Auto) [place] # (Auto) Baso # (Auto) Total Counted Seg Neutrophils % Band Neutrophils % Lymphocytes % (Manual) Monocytes % (Manual) Metamyelocytes % Neutrophils # (Manual) Toxic Granulation Toxic Vacuolation Platelet Estimate RBC Morphology Hypochromasia Anisocytosis Microcytosis Rouleaux Sodium Potassium Chloride Carbon Dioxide BUN Creatinine Estimated GFR BUN/Creatinine Ratio Glucose Lactate Calcium Phosphorus Magnesium Vancomycin Trough 8.4 L PFSH Medical History Mixed connective tissue disease Social History household members: family Smoking Status: Never smoker alcohol intake: current Assessment & Plan Assessment & Plan narrative: Toxic shock syndrome, septic shock due to GAS bacteremia due to group a strep pharyngitis with hypotension, thrombocytopenia, YING, acute metabolic encephalopathy - change rocephin to clindamycin, penicillin G, and vancomycin while awaiting sensitivities. Cr is improving with therapy and fluids, WBC mildly improved today. - rapid strep positive - 07/24 Strep Pyogenes, awaiting sensitivities from admission. - LC CSF results negative - Echocardiogram (TTE without obvious vegetation) - Awaiting repeat BC on 12/20 and continue to coordinate decisions on treatment duration with ID. - Xray Rt elbow - complains on swelling and tenderness in the absence of recent injuries - Was on levophed yesterday, off since very early this morning. -extensive testing for alternative cause of sepsis was arranged before the rapid strep and blood culture strep results arrived. Per discussion with ID she has been checked for babesiosis, leptospirosis, West Nile virus, Ehrlichia. Patient does not use tampons she states. -additional testing for hemolysis in the context of hemoglobin dropping to 8.5 including haptoglobin and ferritin level along with peripheral smear are ordered. Pending lab evaluation still, no schistocytes on smear noted. Mixed Connective Tissue Disease - apparently w/o recent flares - in the past had treatment with prednisone Hyponatremia and hypokalemia and hypomagnesemia - continue repletion with IV and PO per pharmacy, continue to follow with daily labs. Acute anemia - no apparent blood loss, some concern for hemolysis pending lab evaluation noted above - broadened antibiotics to abvoe - continue to follow CBC closely. DVT prophylaxis -SCDs given anemia Her mother and father are her backup decision makers Dispo: remains acutely ill, will keep in the ICU given recurrent fever, borderline hypotension and continued tachycardia. Consider transfer if LEIGHTON is felt to be needed. I spent 40 minutes providing critical care management this patient. This excludes time spent in performing separately billed procedures. Time-Based Coding :: [TOTAL MINUTES] spent with patient and on the chart (including review of chart, obtaining history, exam, reviewing outside data, placing orders, documenting exam and treatment plan, and counseling patient) on [DATE]. Quality VTE Deep Vein Thrombosis/Pulmonary Embolism Present on Admission: No
[2023-12-21] MEDS: SODIUM CHLORIDE 0.9% 1,000 ML 200 ML IV ×2 (19:15→22:49)
[2023-12-21] MEDS: PENICILLIN POTASSIUM IV ×2 (19:21→22:46)
[2023-12-21] MEDS: WATER IV ×2 (19:21→22:46)
[2023-12-21] MEDS: DEXTROSE 5% IV ×2 (19:21→22:46)
[2023-12-22] VITALS (44 sets, daily range): BP systolic 109–138; BP diastolic 56–74; PULSE 121–140; RESP 16–36; TEMP 38.4–39.9; O2SAT 90–100
[2023-12-22] MEDS: CLINDAMYCIN 900 MG/50 ML PIGGYBACK 50 MG IV ×3 (01:06→17:25)
[2023-12-22] MEDS: ACETAMINOPHEN 325 MG TABLET 650 MG PO ×4 (01:16→23:33)
[2023-12-22] MEDS: PENICILLIN POTASSIUM IV ×6 (02:43→23:32)
[2023-12-22] MEDS: WATER IV ×6 (02:43→23:32)
[2023-12-22] MEDS: SODIUM CHLORIDE 0.9% 1,000 ML 200 ML IV ×2 (02:43→08:17)
[2023-12-22] MEDS: DEXTROSE 5% IV ×6 (02:43→23:32)
[2023-12-22] MEDS: VANCOMYCIN 1,000 MG/200 ML PIGGYBACK 200 MG IV ×2 (03:23→09:00)
[2023-12-22] MEDS: HYDROMORPHONE 0.5 MG INJ IV ×5 (06:08→23:32)
--- NOTE | 2023-12-22 06:31 | PC.NURSE ---
Continues to have quite high generalized pain and extreme pain in RUE. RUE appears more swollen than it did yesterday. Measurements taken this AM show L arm is 13 and R arm is 14.5. Could benefit from a HENRIETTA ultrasound to rule out clot. Pt needs encouragement to start moving and doing exercises - plan is for PT/OT to start today.
[2023-12-22 07:36] LABS: Haptoglobin 298 mg/dL (33-278)
[2023-12-22] MEDS: VANCOMYCIN TROUGH 1 REQUEST MISC (08:37)
[2023-12-22] MEDS: SODIUM CHLORIDE 0.9% FLUSH 10 ML IV ×2 (09:01→19:55)
--- NOTE | 2023-12-22 09:49 | PM.PN.EICU ---
Subjective Subjective IF CAMERA ACTIVATED, patient seen via real-time interactive audiovisual communication: Camera activated Consent obtained for tele-dobby looms pegger care: Yes Patient Location: ICU Provider location (State): [place] Other participants/roles: rn Interval history: patient remains febrile to high temps today and is tachcyardic. She is also complaining of joint pains. there is concern the etiology, wether this is endocarditis or infection driven vs rheum given her hisotry or even a post streptococcal reactive arthritis. Current Medications Current Medications Medications: Home Medications No Known Home Medications 12/22/23 [History Confirmed 12/22/23] Visit Medications (administered) Generic Name Dose Route Start Last Admin Trade Name Freq PRN Reason Stop Dose Admin Acetaminophen 650 mg 12/20/23 05:55 12/22/23 01:16 Acetaminophen 325 Mg Tablet PO 650 mg Q6H PRN Administration Fever/Mild Pain (1-3) Benzocaine 1 each 12/20/23 22:58 12/20/23 23:29 Benzocaine/Menthol 1 Yas Pkt PO 1 each Q1HR PRN Administration Sore Throat Hydromorphone HCl 0.5 mg 12/21/23 09:02 12/22/23 06:08 Hydromorphone 0.5 Mg Inj IV 0.5 mg Q2H PRN Administration Pain, Severe (7-10) Clindamycin Phosphate 900 mg in 50 mls @ 50 mls/hr 12/21/23 09:00 12/22/23 09:00 Cleocin IV 50 mls/hr Q8H ZULMA Administration Vancomycin HCl 1,000 mg in 200 mls @ 200 mls/hr 12/21/23 09:00 12/22/23 09:00 Vancomycin IV 200 mls/hr Q6H ZULMA Administration Penicillin G Potassium 4,000, 100 mls @ 200 mls/hr 12/21/23 19:00 12/22/23 07:55 000 unit/ Dextrose IV Infused Q4H ZULMA Infusion Sodium Chloride 1,000 mls @ 200 mls/hr 12/21/23 19:15 12/22/23 08:17 Normal Saline 0.9% IV 200 mls/hr CONT ZULMA Administration Oxycodone HCl 5 mg 12/21/23 09:02 12/21/23 15:30 Oxycodone 5 Mg/5 Ml Oral Solution PO 5 mg Q4HR PRN Administration Pain, Moderate (4-6) Sodium Chloride 10 ml 12/20/23 21:00 12/22/23 09:01 Sodium Chloride 0.9% Flush IV 10 ml BID ZULMA Administration Objective Labs 12/21/23 04:35 12/21/23 04:35 Labs: Laboratory Results - last 24 hr 12/20/23 12/21/23 08:25 10:30 Haptoglobin 298 H Vancomycin Trough 8.4 L Exam Vital Signs (past 8 hours): - 12/22/23 02:00 12/22/23 02:00 12/22/23 02:30 Temperature 102.7 F H 102.7 F H Pulse Rate 126 H 130 H Respiratory Rate 23 24 Blood Pressure 115/56 L Pulse Oximetry 97 97 Oxygen Flow Rate 0 12/22/23 03:00 12/22/23 03:00 12/22/23 04:00 Temperature 102.6 F H Pulse Rate 132 H Respiratory Rate 29 H Blood Pressure 113/59 L 118/59 L Pulse Oximetry 97 Oxygen Flow Rate 0 12/22/23 04:00 12/22/23 05:00 12/22/23 05:00 Temperature 102.2 F H 102.4 F H Pulse Rate 124 H 128 H Respiratory Rate 24 28 H Blood Pressure 114/62 Pulse Oximetry 97 96 Oxygen Flow Rate 0 0 12/22/23 06:00 12/22/23 06:00 12/22/23 07:00 Temperature 102.7 F H 103.1 F H Pulse Rate 137 H 132 H Respiratory Rate 32 H 24 Blood Pressure 118/67 Pulse Oximetry 98 97 Oxygen Flow Rate 0 12/22/23 07:00 12/22/23 08:00 12/22/23 08:00 Temperature 103.3 F H Pulse Rate 130 H Respiratory Rate 24 Blood Pressure 125/60 125/60 Pulse Oximetry 96 Oxygen Flow Rate Oxygen Delivery Method Room Air Oxygen Flow Rate 0 Narrative Exam Narrative: ill appearing tachycardic on monitor symmetric chest rise Quality TeleICU VTE Deep Vein Thrombosis/Pulmonary Embolism Present on Admission: No Assessment & Plan Assessment & Plan narrative: GAS bactgermia Shock h/o MCTD hyperchloremic acidosis ? reactive arthritis 2/2 GAS vs MCTD flare vs endocarditis? Not completely sure of the etiologyo f her symptoms but I do think reactive arthritis is high on differential, and a flare of MCTD could be as well. I ordered some basic rheum labs but ideally we will need to obtain a anti u1 automotive glass technician antibodies ( they are usually low or undectable when in remission) I also think given her hisotry and persistant fever we may need a LEIGHTON but will also wait for ID input as this will necessitate trasnfer. Depending on the inflammatory markers and ID recs I think we may need to start prednisone otherwise plan is below pain control supplementla o2 as needed tte apprecaited ? LEIGHTON needed adat trend labs f/u ferritin f/u cmp, f/u crp ESR dvt ppx empirc abx f/u ID Will follow closely total critical care time = 35 min Time-Based Coding :: [TOTAL MINUTES] spent with patient and on the chart (including review of chart, obtaining history, exam, reviewing outside data, placing orders, documenting exam and treatment plan, and counseling patient) on [DATE].
[2023-12-22 10:36] LABS: HEMOLYSIS 25 (0-50); Potassium 3.7 mmol/L (3.4-5.1); Sodium 134 mmol/L (137-145)
[2023-12-22 10:37] LABS: Aspartate Aminotransferase 25 IU/L (14-36); BUN Creatinine Ratio 16.9 (6-22); Bilirubin Total 0.6 mg/dL (0.2-1.3); Blood Urea Nitrogen 10 mg/dL (7-17); Carbon Dioxide 12 mmol/L (22-32); Chloride 115 mmol/L (98-107); Estimated Glomerular Filt Rate > 60 mL/min (>60); Glucose 84 mg/dL (70-100); Magnesium 2.3 mg/dL (1.6-2.3); Phosphorous 1.3 mg/dL (2.5-4.5)
[2023-12-22 10:37] LABS: Add Manual Diff / Slide Review NO; Basophils Absolute Auto 100 /uL (0-100); Basophils Percent Auto 0.3 % (0-2); Eosinophils Absolute Auto 200 /uL (0-450); Eosinophils Percent Auto 0.8 % (2-4); Hematocrit 21.9 % (36-46); Hemoglobin 6.8 g/dL (12.0-16.0); Lymphocytes Absolute Auto 800 /uL (1100-4500); Lymphocytes Percent Auto 3.9 % (25-40); Mean Corpuscular HGB Conc 30.9 % (30-36); Mean Corpuscular Hemoglobin 21.9 PG (26-34); Mean Corpuscular Volume 70.9 fL (80-100); Monocytes Absolute Auto 400 /uL (0-900); Neutrophils Absolute Auto 18500 /uL (1500-7000); Platelet Count 144 X10^3/uL (150-400); Red Blood Cell Count 3.09 X10^6/uL (4.0-5.2); Red Cell Distribution Width 19.1 % (11.6-14.8); White Blood Cell Count 19.9 X10^3/uL (4.5-11.0)
[2023-12-22 10:38] LABS: Alanine Aminotransferase 13 IU/L (<35); Albumin 2.3 g/dL (3.5-5.0); Albumin Globulin Ratio 0.6 (1.0-2.8); Alkaline Phosphatase 84 U/L (38-126); Globulin 3.7 g/dL (1.7-4.1)
[2023-12-22 10:38] LABS: Erythrocyte Sedimentation Rate > 140 MM/HR (0-20)
[2023-12-22 10:39] LABS: Calcium 6.3 mg/dL (8.4-10.2)
[2023-12-22 10:49] LABS: Ferritin 121 ng/mL (6-137)
--- NOTE | 2023-12-22 10:49 | DI.CT.S_ITS ---
PROCEDURE: CT CHEST ABD PEL W CON INDICATIONS: Strep bacteremia, recurrent fever, r/o abscess w/ diarrhea TECHNIQUE: After the administration of intravenous contrast, 5 mm thick sections acquired from the lung apices to the symphysis. 5 mm coronal and sagittal reformats were performed, with additional 7 mm MIP reformats through the lungs. For radiation dose reduction, the following was used: automated exposure control, adjustment of mA and/or kV according to patient size. COMPARISON: None. FINDINGS: Image quality: Suboptimal due to motion artifact. CHEST: Lower Neck: No enlarged lymph nodes. Thyroid: No thyroid nodules which require sonographic follow up, per consensus guidelines. Axillae: No enlarged lymph nodes. Chest Wall: Unremarkable. Lungs and Pleura: Small pleural effusions. Smooth interstitial thickening and bronchial thickening. Heart: Heart size is enlarged. No pericardial effusion. Thoracic Vessels: The aorta and pulmonary arteries demonstrate normal size. Mediastinum and Ruma: No enlarged lymph nodes. Esophagus: No wall thickening. No hiatal hernia. ABDOMEN: Liver: No solid mass. Periportal edema. Gallbladder: Diffuse gallbladder wall thickening. Gallbladder hydrops. Biliary ducts: No biliary dilation. Pancreas: No ductal dilation. Spleen: Size is within normal limits. Adrenal Glands: No adrenal nodules. Kidneys and Ureters: No hydronephrosis. No solid mass. No complex renal cystic lesion which requires follow up. Stomach and Bowel: Normal colonic caliber, without significant wall thickening. Fluid throughout the large bowel. Peritoneum: Small volume ascites. Ventral Wall: No significant ventral hernia. Abdominal Nodes: No retroperitoneal or mesenteric adenopathy by size criteria. Vessels: Aorta and inferior vena cava are normal in size. PELVIS: Pelvic Organs: Unremarkable. Bladder: Gallardo catheter and gas within the urinary bladder, presumably related. Pelvic Nodes: No enlarged lymph nodes. Miscellaneous: No inguinal hernias are seen. Bones: No aggressive osseous abnormality. IMPRESSION: Fluid throughout the large bowel, consistent with a diarrheal illness. No evidence of colitis. Diffuse gallbladder wall thickening with hydrops. The wall thickening could be due to underlying cardiogenic process, third-spacing of fluids, less likely acute cholecystitis. Can consider HIDA scan if clinically indicated. Moderate pulmonary edema. Small volume free fluid in the pelvis. Periportal edema. Small pleural effusions. Findings likely indicate third-spacing of fluids. Dictated by: Bj Steele M.D. on 12/22/2023 at 11:39 Approved by: Bj Steele M.D. on 12/22/2023 at 11:46
[2023-12-22 10:50] LABS: Lactate (Lactic Acid) 1.5 mmol/L (0.7-2.1)
--- NOTE | 2023-12-22 10:54 | CM.DPNOTE ---
Addendum entered by MARILYN Webster 12/22/23 16:15: Per PN, attempting transfer to [facility]. Per admitting group, pt newly enrolled in [facility] with [facility]. Piedad [place]. SL Original Note: DCP Note ENVIRONMENTAL SERVICES FLOOR TECH reviewed EMR. Per hospitalist in morning rounds, current plan is to transfer out to for [facility]. Per tele-ICU, Pt fever remains high and is tachcyardic If pt unable to transfer, consider PT evals if pt remains weak. Pt dad has been at bedside. CM team will continue to follow as needed. If pt does not transfer, may need IV abx at discharge. MARILYN Webster
[2023-12-22 10:55] LABS: C-Reactive Protein Quant 35.6 mg/dL (<1.0)
[2023-12-22 12:01] LABS: Triglycerides 86 mg/dL (35-150)
[2023-12-22 12:06] LABS: Vancomycin Peak 19.1 ug/mL (20-40)
[2023-12-22] MEDS: POTASSIUM PHOSPHATE 45 MMOL in SODIUM CHLORIDE 0.9% 500 ML 85.833 MMOL IV (12:16)
[2023-12-22 12:40] LABS: Fibrinogen 665 mg/dL (238-498)
[2023-12-22 13:17] LABS: Rubeola Measles IgG < 13.5 AU/mL (Immune >16.4)
--- NOTE | 2023-12-22 13:46 | DIET.CONS ---
Dietary Consultation Note Admission Date: 12/20/2023 05:13 Assessment: 23 y F admitted for N/V/fever. Nutrition screened for low MNA. EMR reviewed, pt remains febrile with high temps and tachycardia. Plan to transfer pt out to . 1 week before admission to hospital, pt experienced increasing weakness and was febrile. Unit host coordinating meals per preference. Ht: 175.26 cm Wt: 74.5 kg BMI: 24.4 UBW: No weight hx Last BM: 12/21/23 (12/21/23 06:00) MNA: 8 Arun Score: 13 Diet: 12/20/23 Breakfast General (Regular) Diet Diet Modifications: Food Texture: Level 7 - Regular Liquid Consistency: Level 0 - Thin Labs: RBC 3.09 X10^6/uL (4.0-5.2) L 12/22/23 09:55 Hgb 6.8 g/dL (12.0-16.0) L* 12/22/23 09:55 Hct 21.9 % (36-46) L 12/22/23 09:55 Creatinine 0.59 mg/dL (0.52-1.04) 12/22/23 09:12 Lactate 1.5 mmol/L (0.7-2.1) 12/22/23 10:30 Ferritin 121 ng/mL (6-137) 12/22/23 Unknown Nutrition Diagnosis: Increased energy needs r/t increased metabolic needs aeb febrile Interventions: 1. ONS/protein smoothie BID EER: [id number] kcals (25 g/kg per BMI + 7% increase for each degree fever) Monitoring/Evaluations: po intakes Electronically Signed by: Merissa Reese 12/22/23 13:46 Clinical Dietitian [address] [address]
--- NOTE | 2023-12-22 15:19 | P.PN_ITS ---
Subjective Subjective Interval history: 23 year old female with GAS bacteremia due to strep throat. Has diffuse joint pain, continued fever. Was on ceftriaxone, changed to clindamycin, penicillin, and vanco on 12/20. Remains persistently febrile to 103.8 today. Hg is also lower to 6.8, getting transfused. She does endorse having vaginal bleeding from her usual period. TTE today did not show obvious vegetations. Have discussed with multiple infectious disease providers including at [facility], Prov. Morales, along with regarding transfer. Currently accepted for higher level of care transfer and specialty consultation to Prov. Morales. Exam Vital Signs (past 8 hours): - 12/22/23 08:00 12/22/23 08:00 12/22/23 09:00 Temperature 103.3 F H 103.5 F H Pulse Rate 130 H 135 H Respiratory Rate 24 16 Blood Pressure 125/60 Pulse Oximetry 96 97 Oxygen Delivery Method 12/22/23 09:00 12/22/23 10:00 12/22/23 10:00 Temperature 103.8 F H Pulse Rate 134 H Respiratory Rate 21 Blood Pressure 128/66 133/65 Pulse Oximetry 100 Oxygen Delivery Method 12/22/23 10:00 12/22/23 10:13 12/22/23 10:20 Temperature 103.8 F H 103.8 F H Pulse Rate Respiratory Rate Blood Pressure Pulse Oximetry Oxygen Delivery Method Room Air 12/22/23 10:43 12/22/23 10:56 12/22/23 11:00 Temperature 103.8 F H 103.8 F H 103.6 F H Pulse Rate 140 H Respiratory Rate 27 H Blood Pressure Pulse Oximetry Oxygen Delivery Method 12/22/23 11:00 12/22/23 12:00 12/22/23 12:00 Temperature 102.7 F H Pulse Rate 135 H Respiratory Rate 27 H Blood Pressure 131/63 125/58 L Pulse Oximetry Oxygen Delivery Method 12/22/23 13:22 12/22/23 13:38 12/22/23 14:00 Temperature 101.5 F H 101.2 F H Pulse Rate 130 H 132 H Respiratory Rate 34 H 36 H Blood Pressure 127/58 L 127/62 Pulse Oximetry Oxygen Delivery Method Room Air 12/22/23 14:08 12/22/23 14:10 Temperature 101.1 F H 101.1 F H Pulse Rate 127 H Respiratory Rate 32 H Blood Pressure 126/59 L Pulse Oximetry Oxygen Delivery Method Oxygen Delivery Method Room Air Oxygen Flow Rate 0 Narrative Exam Narrative: Gen: Ill appearing female, lethargic but alert and oriented, no acute distress but acutely ill appearing HEENT: tender predominantly L but also R lymphadenopathy of her neck. MMM CV: tachycardic, regular rhythm, no m/r/g Pulm: CTA b/l Abd: S diffusely mildly tender, ND Ext: diffuse edema all extremities, diffusely warm. MSK: diffuse joint tenderness in multiple joints as well as multiple muscle groups. She has joint pain with minimal movement in most joints, though a bit worse in her R arm. No obvious overlying joint erythema or effusion on exam. Papular eruptions on her chest and upper extremities with an erythematous base, scarlatiniform in nature. Objective Labs 12/22/23 09:55 12/22/23 09:12 Labs: Laboratory Results - last 24 hr 12/19/23 12/20/23 12/20/23 23:39 01:15 08:25 WBC RBC Hgb Hct MCV MCH MCHC RDW Plt Count Neut % (Auto) Lymph % (Auto) [place] % (Auto) Eos % (Auto) Baso % (Auto) Neut # (Auto) Lymph # (Auto) [place] # (Auto) Eos # (Auto) Baso # (Auto) ESR Haptoglobin 298 H Fibrinogen Sodium Potassium Chloride Carbon Dioxide BUN Creatinine Estimated GFR BUN/Creatinine Ratio Glucose Lactate Calcium Phosphorus Magnesium Ferritin Total Bilirubin AST ALT Alkaline Phosphatase C-Reactive Protein Total Protein Albumin Globulin Albumin/Globulin Ratio Triglycerides Ur Bilirubin Confirm Negative Vancomycin Peak Vancomycin Trough Rubeola (Measles) IgG < 13.5 L Blood Type Antibody Screen Crossmatch 12/22/23 12/22/23 12/22/23 08:50 09:12 09:55 WBC 19.9 H RBC 3.09 L Hgb 6.8 L* Hct 21.9 L MCV 70.9 L MCH 21.9 L MCHC 30.9 RDW 19.1 H Plt Count 144 L Neut % (Auto) 93.0 H Lymph % (Auto) 3.9 L [place] % (Auto) 2.0 L Eos % (Auto) 0.8 L Baso % (Auto) 0.3 Neut # (Auto) 14307 H Lymph # (Auto) 800 L [place] # (Auto) 400 Eos # (Auto) 200 Baso # (Auto) 100 ESR > 140 H Haptoglobin Fibrinogen Sodium 134 L Potassium 3.7 Chloride 115 H Carbon Dioxide 12 L BUN 10 Creatinine 0.59 Estimated GFR > 60 BUN/Creatinine Ratio 16.9 Glucose 84 Lactate Calcium 6.3 L* Phosphorus 1.3 L Magnesium 2.3 Ferritin Total Bilirubin 0.6 AST 25 ALT 13 Alkaline Phosphatase 84 C-Reactive Protein Total Protein 6.0 L Albumin 2.3 L Globulin 3.7 Albumin/Globulin Ratio 0.6 L Triglycerides Ur Bilirubin Confirm Vancomycin Peak Vancomycin Trough 12.0 Rubeola (Measles) IgG Blood Type Antibody Screen Crossmatch 12/22/23 12/22/23 12/22/23 10:30 11:30 Unknown WBC RBC Hgb Hct MCV MCH MCHC RDW Plt Count Neut % (Auto) Lymph % (Auto) [place] % (Auto) Eos % (Auto) Baso % (Auto) Neut # (Auto) Lymph # (Auto) [place] # (Auto) Eos # (Auto) Baso # (Auto) ESR Haptoglobin Fibrinogen 665 H Sodium Potassium Chloride Carbon Dioxide BUN Creatinine Estimated GFR BUN/Creatinine Ratio Glucose Lactate 1.5 Calcium Phosphorus Magnesium Ferritin 121 Total Bilirubin AST ALT Alkaline Phosphatase C-Reactive Protein 35.6 H Total Protein Albumin Globulin Albumin/Globulin Ratio Triglycerides 86 Ur Bilirubin Confirm Vancomycin Peak 19.1 L Vancomycin Trough Rubeola (Measles) IgG Blood Type A Positive Antibody Screen Negative Crossmatch See Detail [facility] Medical History Mixed connective tissue disease Social History household members: family Smoking Status: Never smoker alcohol intake: current Assessment & Plan Assessment & Plan narrative: Toxic shock syndrome, septic shock due to GAS bacteremia due to group a strep pharyngitis with hypotension, thrombocytopenia, YING, acute metabolic encephalopathy - changed rocephin 1 q24hr started initially (started 2200 on 12/18) to clindamycin, penicillin G, and vancomycin on 12/21 while awaiting sensitivities. Cr is improving with therapy and fluids, WBC mildly improved today. Sensitivities have returned with eubanks-sensitive organism. Will stop vancomycin after discussion with both [facility] and Prov. Andrew Infetious disease today. - rapid strep positive Was on levophed early AM of 12/20, has been off since. extensive testing for alternative cause of sepsis was arranged before the rapid strep and blood culture strep results arrived. Per discussion with ID she has been checked for babesiosis, leptospirosis, West Nile virus, Ehrlichia. Patient does not use tampons she states. - BC 07/22 Strep Pyogenes as noted above. - LP CSF results negative (1 WBC, 3 RBC, negative PCR meningitis panel). - Echocardiogram (TTE without obvious vegetation), does have some mild tricuspid regurg. - Repeat blood cultures on 12/19 and 12/20 are without growth at 48 and 24 hours respectively. - Xray Rt elbow - complains on swelling and tenderness in the absence of recent injuries. There is a possible small effusion on radiographs. No real improvement today, but possibly a bit better. Will check a R elbow ultrasound to further evaluate for possible joint effusion. If present will discuss with orthopedics for arthrocentesis. -CT scan chest abd pelvis today without obvious fluid collection or abscess. She is diffusely volume overloaded and will stop IV fluids this afternoon. -Discussed with multiple providers regarding her high ongoing fever to 103.8 today including rhematology at [facility], infectious disease at [facility] and [facility]. No clear etiology at this time. Possible residual bacteremia and toxin effects, possible rheumatologic etiology?, Infectious disease at [facility] did recommend IVIG which was ordered to start today, among both infectious disease providers in reviewing case there was low concern for endocarditis. See rheumatology lab evaluation sent below along with her prior outpatient labs. -Dosing for IVIG in toxic shock syndrome is 75 mg today, 40 mg on day 2/3. -Because of ongoing high fever, discussed with hospitalist Dr. Hu at [facility] and accepted for higher level of care and specialist consultation. Pending bed availability. Mixed Connective Tissue Disease - apparently w/o recent flares - in the past had treatment with prednisone, hydroxychloroquine and methotrexate. [facility] Below are her previous lab values from her radiator repairer. Inflammatory markers Erythrocyte SedRate (mm/hr) Date Value 07/10/2020 27 (H) 01/31/2020 109 (H) 04/23/2016 16 C Reactive Protein (mg/dL) Date Value 07/10/2020 <0.8 01/31/2020 <0.8 04/23/2016 <0.8 Lupus serologies No results found for: DNABANKING C3 Complement (mg/dL) Date Value 07/10/2020 62 (L) 01/31/2020 35 (L) 04/23/2016 111 C4 Complement (mg/dL) Date Value 07/10/2020 12 (L) 01/31/2020 <7 (L) 04/23/2016 19 - have ordered dxDNA, c3, c4, RF, anti CCP today. ESR is >140. CRP 35.6 Hyponatremia and hypokalemia and hypomagnesemia - continue repletion with IV and PO per pharmacy, continue to follow with daily labs. - has a non-anion gap acidosis with bicarb of 12, will continue to monitor as well. Acute anemia - no apparent blood loss from any GI source or on CT. some concern for hemolysis pending lab evaluation noted above though no evidence on labs with elevated haptoglobin, no bilirubin elevations, no schistocytes. Patient does endorse a light period. This could be related to infection, hemodilution, and small amount of vaginal bleeding but pending above evaluation. HLH essentially ruled out (in setting of a previous dx of MCTD), ferritin normal, no leukopenia, no splenomegaly on CT. - continue to follow CBC closely. - transfuse 1U PRBC on 12/21 for Hg of 6.8. DVT prophylaxis -SCDs given anemia Her mother and father are her backup decision makers Dispo: remains acutely ill, will keep in the ICU here given recurrent fever, borderline hypotension and continued tachycardia. Pending transfer to OSH for higher level of care but is technically stable for an acute care floor at higher level facility. I spent 110 minutes providing critical care management this patient including discussions above with multiple outside providers attempting to arrange transfer. This excludes time spent in performing separately billed procedures. Time-Based Coding :: [TOTAL MINUTES] spent with patient and on the chart (including review of chart, obtaining history, exam, reviewing outside data, placing orders, documenting exam and treatment plan, and counseling patient) on [DATE]. Quality VTE Deep Vein Thrombosis/Pulmonary Embolism Present on Admission: No
[2023-12-22] MEDS: GLY IV (15:49)
[2023-12-22] MEDS: IGA OV50 IV (15:49)
[2023-12-22] MEDS: IMMUN GLOB IV (15:49)
[2023-12-22] MEDS: ISOOSMOTIC VEHICLE IV (15:49)
--- NOTE | 2023-12-22 16:00 | DI.US.S_ITS ---
PROCEDURE: US EXTREMELY NONVASC UPPER RT INDICATIONS: GROUP A STREP BACTEREMIA. RIGHT ELBOW PAIN. ?JOINT EFFUSION TECHNIQUE: Real-time scanning was performed of the right elbow , with image documentation. COMPARISON: None. FINDINGS: Targeted ultrasound of the right elbow demonstrates no joint effusion. There is subcutaneous edema. IMPRESSION: Subcutaneous edema without joint effusion. Dictated by: Bj Steele M.D. on 12/22/2023 at 16:39 Approved by: Bj Steele M.D. on 12/22/2023 at 16:39
--- NOTE | 2023-12-22 18:57 | PC.NURSE ---
pt is for transfer to [place]--waiting for bed; pt was given one unit of PRBCs today; she is getting IVIG; right arm edema has increased and a r arm US was done; pt has not had any episodes of diarrhea today; she remains tachypneic, febrile, and tachycardic. She has been able to swallow a little better today and is swallowing pills whole; she did have an adequate intake of liquids and ate some bread and mashed potatoes; she has been medicated twice w/ dilaudid for generalized pain and twice w/ Tylenol for fever; ice packs also used for fever reduction. Parents at bedside all shift
[2023-12-22 21:35] LABS: Rheumatoid Factor < 8.6 IU/mL (<12.0)
[2023-12-23] VITALS (22 sets, daily range): BP systolic 102–146; BP diastolic 58–73; PULSE 110–128; RESP 16–28; TEMP 37.1–38.7; O2SAT 93–98
[2023-12-23] MEDS: CLINDAMYCIN 900 MG/50 ML PIGGYBACK 50 MG IV ×2 (01:08→08:25)
[2023-12-23] MEDS: HYDROMORPHONE 0.5 MG INJ IV ×3 (06:41→13:06)
[2023-12-23] MEDS: DEXTROSE 5% IV ×3 (06:44→14:42)
[2023-12-23] MEDS: WATER IV ×3 (06:44→14:42)
[2023-12-23] MEDS: PENICILLIN POTASSIUM IV ×3 (06:44→14:42)
[2023-12-23 06:52] LABS: Add Manual Diff / Slide Review NO; Basophils Absolute Auto 0 /uL (0-100); Basophils Percent Auto 0.1 % (0-2); Eosinophils Absolute Auto 300 /uL (0-450); Hematocrit 21.9 % (36-46); Hemoglobin 7.1 g/dL (12.0-16.0); Lymphocytes Absolute Auto 1800 /uL (1100-4500); Mean Corpuscular HGB Conc 32.6 % (30-36); Mean Corpuscular Hemoglobin 23.6 PG (26-34); Mean Corpuscular Volume 72.3 fL (80-100); Monocytes Absolute Auto 700 /uL (0-900); Monocytes Percent Auto 5.2 % (3-14); Neutrophils Absolute Auto 10200 /uL (1500-7000); Neutrophils Percent Auto 78.7 % (50-75); Platelet Count 150 X10^3/uL (150-400); Red Blood Cell Count 3.02 X10^6/uL (4.0-5.2); Red Cell Distribution Width 19.3 % (11.6-14.8)
[2023-12-23 07:05] LABS: Alanine Aminotransferase 12 IU/L (<35); Albumin 2.2 g/dL (3.5-5.0); Albumin Globulin Ratio 0.5 (1.0-2.8); Alkaline Phosphatase 104 U/L (38-126); Aspartate Aminotransferase 32 IU/L (14-36); BUN Creatinine Ratio 19.1 (6-22); Bilirubin Total 0.5 mg/dL (0.2-1.3); Blood Urea Nitrogen 9 mg/dL (7-17); Carbon Dioxide 17 mmol/L (22-32); Chloride 110 mmol/L (98-107); Estimated Glomerular Filt Rate > 60 mL/min (>60); Globulin 4.6 g/dL (1.7-4.1); Glucose 90 mg/dL (70-100); HEMOLYSIS < 15 (0-50); Magnesium 2.2 mg/dL (1.6-2.3); Phosphorous 1.7 mg/dL (2.5-4.5); Potassium 3.8 mmol/L (3.4-5.1); Sodium 130 mmol/L (137-145); Total Protein 6.8 g/dL (6.3-8.2)
[2023-12-23] MEDS: ACETAMINOPHEN 325 MG TABLET 650 MG PO (07:05)
[2023-12-23 07:08] LABS: Calcium 6.4 mg/dL (8.4-10.2)
[2023-12-23] MEDS: SODIUM CHLORIDE 0.9% FLUSH 10 ML IV (09:06)
[2023-12-23] MEDS: BENZOCAINE/MENTHOL 1 LOZ PKT 1 EACH PO (09:56)
--- NOTE | 2023-12-23 09:57 | PM.PN.EICU ---
Subjective Subjective IF CAMERA ACTIVATED, patient seen via real-time interactive audiovisual communication: Camera activated Consent obtained for tele-slot machine mechanic care: Yes Patient Location: ICU Provider location (State): Other participants/roles: RN, Interval history: Afebrile this am, WBC trending down, no pressors, still tachy 120. Current Medications Current Medications Medications: Home Medications No Known Home Medications 12/22/23 [History Confirmed 12/22/23] Visit Medications (administered) Generic Name Dose Route Start Last Admin Trade Name Freq PRN Reason Stop Dose Admin Acetaminophen 650 mg 12/20/23 05:55 12/23/23 07:05 Acetaminophen 325 Mg Tablet PO 650 mg Q6H PRN Administration Fever/Mild Pain (1-3) Benzocaine 1 each 12/20/23 22:58 12/23/23 09:56 Benzocaine/Menthol 1 Yas Pkt PO 1 each Q1HR PRN Administration Sore Throat Hydromorphone HCl 0.5 mg 12/21/23 09:02 12/23/23 09:40 Hydromorphone 0.5 Mg Inj IV 0.5 mg Q2H PRN Administration Pain, Severe (7-10) Clindamycin Phosphate 900 mg in 50 mls @ 50 mls/hr 12/21/23 09:00 12/23/23 09:30 Cleocin IV Infused Q8H ZULMA Infusion Penicillin G Potassium 4,000, 100 mls @ 200 mls/hr 12/21/23 19:00 12/23/23 07:46 000 unit/ Dextrose IV Infused Q4H ZULMA Infusion Oxycodone HCl 5 mg 12/21/23 09:02 12/21/23 15:30 Oxycodone 5 Mg/5 Ml Oral Solution PO 5 mg Q4HR PRN Administration Pain, Moderate (4-6) Sodium Chloride 10 ml 12/20/23 21:00 12/23/23 09:06 Sodium Chloride 0.9% Flush IV 10 ml BID ZULMA Administration Objective Labs 12/23/23 06:30 12/23/23 06:30 Labs: Laboratory Results - last 24 hr 12/19/23 12/20/23 12/22/23 23:39 01:15 08:50 WBC RBC Hgb Hct MCV MCH MCHC RDW Plt Count Neut % (Auto) Lymph % (Auto) [place] % (Auto) Eos % (Auto) Baso % (Auto) Neut # (Auto) Lymph # (Auto) [place] # (Auto) Eos # (Auto) Baso # (Auto) ESR Fibrinogen Sodium Potassium Chloride Carbon Dioxide BUN Creatinine Estimated GFR BUN/Creatinine Ratio Glucose Lactate Calcium Phosphorus Magnesium Ferritin Total Bilirubin AST ALT Alkaline Phosphatase C-Reactive Protein Total Protein Albumin Globulin Albumin/Globulin Ratio Triglycerides Ur Bilirubin Confirm Negative Vancomycin Peak Vancomycin Trough 12.0 Rheumatoid Factor Rubeola (Measles) IgG < 13.5 L Blood Type Antibody Screen Crossmatch 12/22/23 12/22/23 12/22/23 09:12 09:55 10:30 WBC 19.9 H RBC 3.09 L Hgb 6.8 L* Hct 21.9 L MCV 70.9 L MCH 21.9 L MCHC 30.9 RDW 19.1 H Plt Count 144 L Neut % (Auto) 93.0 H Lymph % (Auto) 3.9 L [place] % (Auto) 2.0 L Eos % (Auto) 0.8 L Baso % (Auto) 0.3 Neut # (Auto) 58078 H Lymph # (Auto) 800 L [place] # (Auto) 400 Eos # (Auto) 200 Baso # (Auto) 100 ESR > 140 H Fibrinogen Sodium 134 L Potassium 3.7 Chloride 115 H Carbon Dioxide 12 L BUN 10 Creatinine 0.59 Estimated GFR > 60 BUN/Creatinine Ratio 16.9 Glucose 84 Lactate 1.5 Calcium 6.3 L* Phosphorus 1.3 L Magnesium 2.3 Ferritin Total Bilirubin 0.6 AST 25 ALT 13 Alkaline Phosphatase 84 C-Reactive Protein Total Protein 6.0 L Albumin 2.3 L Globulin 3.7 Albumin/Globulin Ratio 0.6 L Triglycerides Ur Bilirubin Confirm Vancomycin Peak Vancomycin Trough Rheumatoid Factor Rubeola (Measles) IgG Blood Type Antibody Screen Crossmatch 12/22/23 12/22/23 12/22/23 11:30 21:10 Unknown WBC RBC Hgb Hct MCV MCH MCHC RDW Plt Count Neut % (Auto) Lymph % (Auto) [place] % (Auto) Eos % (Auto) Baso % (Auto) Neut # (Auto) Lymph # (Auto) [place] # (Auto) Eos # (Auto) Baso # (Auto) ESR Fibrinogen 665 H Sodium Potassium Chloride Carbon Dioxide BUN Creatinine Estimated GFR BUN/Creatinine Ratio Glucose Lactate Calcium Phosphorus Magnesium Ferritin 121 Total Bilirubin AST ALT Alkaline Phosphatase C-Reactive Protein 35.6 H Total Protein Albumin Globulin Albumin/Globulin Ratio Triglycerides 86 Ur Bilirubin Confirm Vancomycin Peak 19.1 L Vancomycin Trough Rheumatoid Factor < 8.6 Rubeola (Measles) IgG Blood Type A Positive Antibody Screen Negative Crossmatch See Detail 12/23/23 06:30 WBC 13.0 H RBC 3.02 L Hgb 7.1 L Hct 21.9 L MCV 72.3 L MCH 23.6 L MCHC 32.6 RDW 19.3 H Plt Count 150 Neut % (Auto) 78.7 H Lymph % (Auto) 14.0 L [place] % (Auto) 5.2 Eos % (Auto) 2.0 Baso % (Auto) 0.1 Neut # (Auto) 88028 H Lymph # (Auto) 1800 [place] # (Auto) 700 Eos # (Auto) 300 Baso # (Auto) 0 ESR Fibrinogen Sodium 130 L Potassium 3.8 Chloride 110 H Carbon Dioxide 17 L BUN 9 Creatinine 0.47 L Estimated GFR > 60 BUN/Creatinine Ratio 19.1 Glucose 90 Lactate Calcium 6.4 L* Phosphorus 1.7 L Magnesium 2.2 Ferritin Total Bilirubin 0.5 AST 32 ALT 12 Alkaline Phosphatase 104 C-Reactive Protein Total Protein 6.8 Albumin 2.2 L Globulin 4.6 H Albumin/Globulin Ratio 0.5 L Triglycerides Ur Bilirubin Confirm Vancomycin Peak Vancomycin Trough Rheumatoid Factor Rubeola (Measles) IgG Blood Type Antibody Screen Crossmatch Exam Vital Signs (past 8 hours): - 12/23/23 02:00 12/23/23 02:00 12/23/23 02:00 Temperature 101.3 F H 101.3 F H Pulse Rate 115 H 115 H Respiratory Rate 22 22 Blood Pressure 146/66 H Pulse Oximetry 94 94 Oxygen Delivery Method Nasal Cannula Oxygen Flow Rate 1 12/23/23 02:00 12/23/23 03:00 12/23/23 03:00 Temperature 101.5 F H 101.5 F H Pulse Rate 124 H 124 H Respiratory Rate 22 22 Blood Pressure 146/66 H 124/60 Pulse Oximetry 95 95 Oxygen Delivery Method Oxygen Flow Rate 1 12/23/23 03:00 12/23/23 04:00 12/23/23 04:00 Temperature 101.5 F H 101.5 F H Pulse Rate 122 H 122 H Respiratory Rate 22 22 Blood Pressure 124/60 126/58 L Pulse Oximetry 94 94 Oxygen Delivery Method Oxygen Flow Rate 1 12/23/23 04:00 12/23/23 05:00 12/23/23 05:00 Temperature 101.5 F H 101.5 F H Pulse Rate 123 H 123 H Respiratory Rate 23 23 Blood Pressure 126/58 L 134/68 Pulse Oximetry 94 94 Oxygen Delivery Method Oxygen Flow Rate 1 12/23/23 05:00 12/23/23 06:00 12/23/23 06:00 Temperature 101.5 F H Pulse Rate 126 H Respiratory Rate 21 Blood Pressure 134/68 137/62 Pulse Oximetry 96 Oxygen Delivery Method Nasal Cannula Oxygen Flow Rate 1 12/23/23 06:00 12/23/23 06:00 12/23/23 07:00 Temperature 101.5 F H 100.9 F H Pulse Rate 126 H 118 H Respiratory Rate 21 24 Blood Pressure 137/62 126/65 Pulse Oximetry 96 96 Oxygen Delivery Method Oxygen Flow Rate 1 12/23/23 07:00 12/23/23 07:00 12/23/23 07:05 Temperature 101.3 F H 101.3 F H Pulse Rate 121 H Respiratory Rate 19 Blood Pressure 128/63 Pulse Oximetry 95 Oxygen Delivery Method Oxygen Flow Rate 12/23/23 07:35 12/23/23 08:00 12/23/23 08:00 Temperature 100.9 F H 100.8 F H Pulse Rate 122 H Respiratory Rate 20 Blood Pressure 126/65 Pulse Oximetry 97 Oxygen Delivery Method Oxygen Flow Rate 12/23/23 08:52 12/23/23 08:52 12/23/23 09:00 Temperature 100.0 F H Pulse Rate 122 H Respiratory Rate 27 H Blood Pressure 125/73 126/73 Pulse Oximetry 97 Oxygen Delivery Method Oxygen Flow Rate 12/23/23 09:00 Temperature 100.0 F H Pulse Rate 117 H Respiratory Rate 21 Blood Pressure Pulse Oximetry 97 Oxygen Delivery Method Oxygen Flow Rate Fraction of Inspired Oxygen 24 SaO2/FiO2 Ratio 395 Oxygen Delivery Method Nasal Cannula Oxygen Flow Rate 1 Quality TeleICU VTE Deep Vein Thrombosis/Pulmonary Embolism Present on Admission: No Assessment & Plan Assessment & Plan narrative: Assessment & Plan narrative: GAS bactermia Shock/ resolved h/o MCTD ? reactive arthritis 2/2 GAS vs MCTD flare vs endocarditis? Anasarca in the sitting of critical illness, hypoalbuminemia , Hyponatremia Continue Vanc, Clinda any PCN , Hospital medicine in contact with ID Repeated Bcx continue to be neg Pending rheum work up IV albumin 25% 1 gm /kg x and IV bumex 1 mg bid x 24h pain control supplementla o2 as needed trend labs f/u ferritin f/u cmp, f/u crp ESR dvt ppx Consider transfer to higher level of care total critical care time = 35 min Time-Based Coding :: [TOTAL MINUTES] spent with patient and on the chart (including review of chart, obtaining history, exam, reviewing outside data, placing orders, documenting exam and treatment plan, and counseling patient) on [DATE].
--- NOTE | 2023-12-23 10:14 | DI.US.S_ITS ---
PROCEDURE: US PERIPH VENOUS UP EXTREM RT INDICATIONS: r/o DVT RUE TECHNIQUE: Real-time imaging, as well as color and pulse Doppler interrogation, was performed of the upper extremity deep veins from the inferior neck to the antecubital fossa. COMPARISON: None. FINDINGS: The internal jugular vein, visualized portions of the subclavian vein, axillary, and brachial veins are free of intraluminal thrombus. Where physically possible, the veins are normally compressible. Color and pulse Doppler demonstrate normal intraluminal flow, with expected phasicity and pulsatility. Additional scanning of the cephalic and basilic veins of the superficial system demonstrates normal compressibility, without thrombus. Incidental note is made right axillary adenopathy measuring up to 4.4 x 3.6 x 1.9 cm. IMPRESSION: No evidence of DVT, right upper extremity. Incidental right axillary adenopathy Approved by: Rafal Chan M.D. on 12/23/2023 at 16:02
[2023-12-23] MEDS: SODIUM,POTASSIUM PHOSPHATES PACKET 2 EACH PO ×2 (10:41→13:58)
[2023-12-23] MEDS: ALBUMIN HUMAN 25 GM/100 ML VIAL IV (11:19)
--- NOTE | 2023-12-23 12:41 | CM.DPNOTE ---
DCP Cont Reviewed chart. Patient discussed in multidisciplinary rounds. Patient continues to improve, although slowly. Patient moving arms, cannot tolerate much by mouth yet. Transfer still being attempted, no transfer beds this morning according to coordinator. If patient remains admitted at and clinically is improved, therapy evals would assist in dispo planning. CM team following clinical course closely. MANDY
[2023-12-23] MEDS: HYDROMORPHONE 2 MG INJ IV (13:26)
[2023-12-23] MEDS: BUMETANIDE 1 MG/4 ML VIAL IV (13:30)
--- NOTE | 2023-12-23 14:09 | P.DS_ITS ---
History of Present Illness History of Present Illness Date Patient Seen: 12/23/23 Time Patient Seen: 14:10 Chief complaint: voming since thursday, fever Narrative: Per admitting provider, 23 y/o with PMH of Mixed Connective Tissue Disease, presented to ED dehydrated, with YING, lekocytosis, maculopapular rash, hypotensive and tachycardic after she became confused and developed diarrhea. Last week she took a trip to [facility] and rash appeared few days ago. Extensive ED workup, including LP, non- revealing. Stool studies, viral panel, CXR, UA all WNR. She complained on Rt elbow tenderness and swelling on admission and dry throat.She also has a lot of dental cavities. Started on antibiotics and IVFs and admitted to ICU Discharge Providers Provider Date of admission: 12/20/23 05:13 Discharge Date: 12/23/23 Primary care physician: ELIZ Culp Consults: 12/20/23 09:57 Consult After Hours PICC Line RN Routine Comment: Discharge provider: Francis Siegel DO Summary Hospital Course Discharge Diagnosis: Please see hospital course by problem list noted below. Hospital Course: Toxic shock syndrome, septic shock due to GAS bacteremia due to group a strep pharyngitis with hypotension, thrombocytopenia, YING, acute metabolic encephalopathy - changed rocephin 1 q24hr started initially (started 2200 on 12/18) to clindamycin, penicillin G, and vancomycin on 12/20 while awaiting sensitivities. Cr is improving with therapy and fluids, WBC now improving as well (from persistently low 20K range to now 13 today). - Sensitivities have returned with eubanks-sensitive organism. Stopped vancomycin after discussion with both [facility] and Prov. Andrew Infetious disease on 12/21 (course was 12/20-12/21) - rapid strep positive confirming likely source. - Was on levophed early AM of 12/20, has been off since. extensive testing for alternative cause of sepsis was arranged before the rapid strep and blood culture strep results arrived. Per discussion with ID she has been checked for babesiosis, leptospirosis, West Nile virus, Ehrlichia. Patient does not use tampons she states. - BC 4/4 Strep Pyogenes as noted above. - LP CSF results negative (1 WBC, 3 RBC, negative PCR meningitis panel). - Echocardiogram (TTE without obvious vegetation), does have some mild tricuspid regurg. - Repeat blood cultures on 12/19 and 12/20 are without growth at 72 and 48 hours respectively. - Xray Rt elbow - complains on swelling and tenderness in the absence of recent injuries. There is a possible small effusion on radiographs. No real improvement today, but possibly a bit better. R elbow ultrasound with no joint effusion, diffuse edema. RUE DVT study negative on 12/22 AM. -CT scan chest abd pelvis performed on 12/21 without obvious fluid collection or abscess. She is diffusely volume overloaded with diffuse edema, (gallbladder wall edema likely due to fluid, as well as pleural effusions) and stopped IV fluids on 12/21. On 12/22 tele-computer drafter service gave albumin and bumex. -Discussed with multiple providers regarding her high ongoing fever to 103.8 on 12/21. including rhematology at [facility], infectious disease at [facility] and [facility]. No clear etiology at this time. Possible residual bacteremia and toxin effects, possible rheumatologic etiology?, Infectious disease at [facility] did recommend IVIG which was ordered to start on 12/21, among both infectious disease providers in reviewing case there was low concern for endocarditis. See rheumatology lab evaluation sent below along with her prior outpatient labs. Of note patient's fever did finally break on the morning of 12/22. Yet she continues to struggle with joint pains, and is still persistently tachycardic though this is improved slightly but HR remains around 120 today. -Dosing for IVIG in toxic shock syndrome is 75 mg on day 1, 40 mg on day 2/3. Patient has received day 1 and 2 doses at the time of transfer. -Because of ongoing high fever, and persistent tachycardia. Discussed with hospitalist Dr. Hu at [facility] and accepted for higher level of care and specialist consultation. Discussed with family whom were appreciative of the transfer. Mixed Connective Tissue Disease - apparently w/o recent flares - in the past had treatment with prednisone, hydroxychloroquine and methotrexate. [facility]. Below are her [facility] lab values [facility]. She was supposed to establish with Rheum at [facility], though it does not appear this happened. Inflammatory markers Erythrocyte SedRate (mm/hr) Date Value 07/10/2020 27 (H) 01/31/2020 109 (H) 04/23/2016 16 C Reactive Protein (mg/dL) Date Value 07/10/2020 <0.8 01/31/2020 <0.8 04/23/2016 <0.8 Lupus serologies No results found for: DNABANKING C3 Complement (mg/dL) Date Value 07/10/2020 62 (L) 01/31/2020 35 (L) 04/23/2016 111 C4 Complement (mg/dL) Date Value 07/10/2020 12 (L) 01/31/2020 <7 (L) 04/23/2016 19 - have ordered dxDNA, c3, c4, RF, anti CCP today. ESR is >140. CRP 35.6 - RF value is negative. CCP, DNA, and complement levels are pending at the time of transfer. Hyponatremia and hypokalemia and hypomagnesemia - continue repletion with IV and PO per pharmacy, continue to follow with daily labs. - has a non-anion gap acidosis with bicarb of 12 at it's lowest. This is finally improved today at 17. - continues to have minimal PO intake, tolerating clears, largely due to sore throat. - patient did have neck imaging with CT without abscess, though should pain linger consider repeat imaging. Acute anemia - no apparent blood loss from any GI source or on CT. some concern for hemolysis pending lab evaluation noted above though no evidence on labs with elevated haptoglobin, no bilirubin elevations, no schistocytes. Patient does endorse a light period. This could be related to infection, hemodilution, and small amount of vaginal bleeding. HLH essentially ruled out (in setting of a previous dx of MCTD), ferritin normal, no leukopenia, no splenomegaly on CT. - continue to follow CBC closely. - transfuse 1U PRBC on 12/21 for Hg of 6.8. Hg only improved slightly to 7.1 after transfusion. Continue to follow closely. DVT prophylaxis -SCDs given anemia Her mother and father are her backup decision makers Dispo: remains acutely ill, transferring to higher level facility, accepting hospitalist Dr. Hu. Time Spent with Patient Time spent: Greater than 30 minutes Exam Vital Signs (past 8 hours): - 12/23/23 07:00 12/23/23 07:00 12/23/23 07:00 Temperature 100.9 F H 101.3 F H Pulse Rate 118 H 121 H Respiratory Rate 24 19 Blood Pressure 126/65 128/63 Pulse Oximetry 96 95 Oxygen Delivery Method Oxygen Flow Rate 1 12/23/23 07:05 12/23/23 07:35 12/23/23 08:00 Temperature 101.3 F H 100.9 F H 100.8 F H Pulse Rate 122 H Respiratory Rate 20 Blood Pressure Pulse Oximetry 97 Oxygen Delivery Method Oxygen Flow Rate 12/23/23 08:00 12/23/23 08:52 12/23/23 08:52 Temperature 100.0 F H Pulse Rate 122 H Respiratory Rate 27 H Blood Pressure 126/65 125/73 Pulse Oximetry 97 Oxygen Delivery Method Oxygen Flow Rate 12/23/23 09:00 12/23/23 09:00 12/23/23 10:00 Temperature 100.0 F H Pulse Rate 117 H Respiratory Rate 21 Blood Pressure 126/73 Pulse Oximetry 97 Oxygen Delivery Method Nasal Cannula Oxygen Flow Rate 12/23/23 10:00 12/23/23 10:00 12/23/23 10:00 Temperature 99.6 F 99.7 F H Pulse Rate 112 H 115 H Respiratory Rate 21 23 Blood Pressure 116/72 116/72 Pulse Oximetry 96 96 Oxygen Delivery Method Oxygen Flow Rate 1 12/23/23 10:15 12/23/23 11:00 12/23/23 11:12 Temperature 99.5 F 99.3 F 99.3 F Pulse Rate 121 H 119 H Respiratory Rate 28 H 24 Blood Pressure Pulse Oximetry 97 96 Oxygen Delivery Method Oxygen Flow Rate 12/23/23 11:12 12/23/23 12:00 12/23/23 12:00 Temperature 98.8 F Pulse Rate 110 H Respiratory Rate 18 Blood Pressure 111/67 102/64 Pulse Oximetry 95 Oxygen Delivery Method Oxygen Flow Rate 12/23/23 13:00 12/23/23 13:00 Temperature 99.0 F Pulse Rate 116 H Respiratory Rate 25 H Blood Pressure 109/65 Pulse Oximetry 96 Oxygen Delivery Method Oxygen Flow Rate Fraction of Inspired Oxygen 24 SaO2/FiO2 Ratio 395 Oxygen Delivery Method Nasal Cannula Oxygen Flow Rate 1 Narrative Exam Narrative: Gen: Ill appearing young female, lethargic but alert and oriented, no acute distress HEENT: tender predominantly L but also R lymphadenopathy of her neck. MMM CV: tachycardic, regular rhythm, no m/r/g Pulm: CTA b/l Abd: S diffusely mildly tender, ND Ext: diffuse edema all extremities, diffusely warm. MSK: diffuse joint tenderness in multiple joints as well as multiple muscle groups. She has joint pain with minimal movement in most joints, though a bit worse in her R arm.This is slightly improving today. No obvious overlying joint erythema or effusion on exam. Papular eruptions on her chest and upper extremities with an erythematous base, scarlatiniform in nature. Objective Labs 12/23/23 06:30 12/23/23 06:30 Labs: Laboratory Results - last 24 hr 12/20/23 12/22/23 12/22/23 08:25 11:30 21:10 WBC RBC Hgb Hct MCV MCH MCHC RDW Plt Count Neut % (Auto) Lymph % (Auto) [place] % (Auto) Eos % (Auto) Baso % (Auto) Neut # (Auto) Lymph # (Auto) [place] # (Auto) Eos # (Auto) Baso # (Auto) Smear Path Review Sodium Potassium Chloride Carbon Dioxide BUN Creatinine Estimated GFR BUN/Creatinine Ratio Glucose Calcium Phosphorus Magnesium Total Bilirubin AST ALT Alkaline Phosphatase Total Protein Albumin Globulin Albumin/Globulin Ratio Rheumatoid Factor < 8.6 Crossmatch See Detail 12/23/23 06:30 WBC 13.0 H RBC 3.02 L Hgb 7.1 L Hct 21.9 L MCV 72.3 L MCH 23.6 L MCHC 32.6 RDW 19.3 H Plt Count 150 Neut % (Auto) 78.7 H Lymph % (Auto) 14.0 L [place] % (Auto) 5.2 Eos % (Auto) 2.0 Baso % (Auto) 0.1 Neut # (Auto) 72258 H Lymph # (Auto) 1800 [place] # (Auto) 700 Eos # (Auto) 300 Baso # (Auto) 0 Smear Path Review Sodium 130 L Potassium 3.8 Chloride 110 H Carbon Dioxide 17 L BUN 9 Creatinine 0.47 L Estimated GFR > 60 BUN/Creatinine Ratio 19.1 Glucose 90 Calcium 6.4 L* Phosphorus 1.7 L Magnesium 2.2 Total Bilirubin 0.5 AST 32 ALT 12 Alkaline Phosphatase 104 Total Protein 6.8 Albumin 2.2 L Globulin 4.6 H Albumin/Globulin Ratio 0.5 L Rheumatoid Factor Crossmatch [facility] Medical History Mixed connective tissue disease Social History household members: family Smoking Status: Never smoker alcohol intake: current Discharge Plan Discharge Plan Patient Disposition: [facility] Discharge Health Status Multidrug resistant organism: No MDRO Precautions: [place] Diet/Activity/Treatments Diet: Diet as Tolerated and Regular Liquid consistency: Normal/Thin Food texture: Regular Activity: As tolerated, though limited by pain. Discharge Data Primary Care Provider: Courtney Sosa VTE Deep Vein Thrombosis/Pulmonary Embolism Present on Admission: No
--- NOTE | 2023-12-23 15:18 | PC.NURSE ---
1400 report called to RN at [facility] Andrew, Pt and family given information about the transfer and assured that pain medication would be given prior to leaving on the ambulance. IVIG 20G given and 20G returned to pharmacy.
[2023-12-23] MEDS: IMMUNE GLOBUL IV (15:23)
[2023-12-23] MEDS: GLY IV (15:23)
[2023-12-23] MEDS: ISOOSMOTIC VEHICLE IV (15:23)
[2023-12-23] MEDS: IGA AVG IV (15:23)
[2023-12-23] MEDS: HYDROMORPHONE 0.5 MG INJ 2 MG IV (15:38)
--- NOTE | 2023-12-23 16:00 | PC.NURSE ---
1558 Pt left per EMS to [place], VSS, Dilaudid 2mg IV given just prior to leaving.
[2023-12-24 03:36] LABS: Complement C3 30 mg/dL (82-167)
[2023-12-24 21:11] LABS: 18 kD IgG Band Absent (.); 23 kD IgG Band Absent (.); 28 kD IgG Band Absent (.); 30 kD IgG Band Absent (.); 39 kD IgG Band Absent (.); 41 kD IgG Bands Absent (.); 45 kD IgG Band Absent (.); 58 kD IgG Band Absent (.); 66 kD IgG Band Absent (.); IgG P93 AB Absent (.); IgM P23 AB Absent (.); IgM P39 AB Absent (.); IgM P41 AB Absent (.); Lyme IgG Line Blot Interpretat Negative (.); Lyme IgM Line Blot Interpretat Negative (.)
[2023-12-25 10:30] LABS: CCP Antibodies IgG/IgA 9 units (0-19)
[2023-12-25 17:15] LABS: DNA (DS) Antibody 7 IU/mL (0-9)
== END 2023-12-23 15:58 | disposition short-term general hospital (02) | DRG 720 ==
LOC: ED 12-20 05:12 → AC 12-20 05:13 → ICU 12-20 10:18
PROVIDERS: Family Medicine; Internal Medicine; Internal Medicine Critical Care Medicine; Admitting Provider Internal Medicine; Emergency Provider Emergency Medicine; Family Provider Physician Assistant Medical; PCP Nurse Practitioner Family; Referring Provider Emergency Medicine; Visit Provider Internal Medicine
DX: A40.0 Sepsis due to streptococcus, group A (principal); N17.9 Acute kidney failure, unspecified; M35.1 Other overlap syndromes; G93.41 Metabolic encephalopathy; R65.21 Severe sepsis with septic shock; J02.0 Streptococcal pharyngitis; E87.6 Hypokalemia; E87.1 Hypo-osmolality and hyponatremia; D69.6 Thrombocytopenia, unspecified; A48.3 Toxic shock syndrome; M25.521 Pain in right elbow; E83.42 Hypomagnesemia; D64.9 Anemia, unspecified; N25.89 Other disorders resulting from impaired renal tubular function; I07.1 Rheumatic tricuspid insufficiency; R60.1 Generalized edema; E87.70 Fluid overload, unspecified; E87.20 Acidosis, unspecified
CPT/HCPCS: 36415; 36430; 36569; 36592; 62270; 70450; 70480; 70488; 70490; 71045; 71260; 73070; 74177; 76882; 80048; 80053; 80202; 80320; 81001; 82550; 82728; 82945; 83010; 83605; 83690; 83735; 84100; 84145; 84157; 84478; 84703; 85007; 85025; 85384; 85651; 86140; 86160; 86200; 86225; 86430; 86617; 86666; 86753; 86757; 86762; 86765; 86788; 86789; 86850; 86900; 86901; 87040; 87070; 87077; 87086; 87147; 87154; 87186; 87205; 87507; 87633; 87651; 87797; 87798; 89051; 93005; 93010; 93306; 93971; 96361; 96365; 96366; 96367; 96368; 96375; 96376; 99284; 99291; P9016; J0136; J0696; J1170; J1459; J1568; J1885; J2270; J2405; J2540; J3475; P9041; Q9967

== ENCOUNTER 2024-01-08 02:58 | Emergency (ER) | payer OTHER, MEDICAID, SELFPAY ==
[2023-12-20 10:20] VITALS: BMI 24.4
[2024-01-08] VITALS (43 sets, daily range): BP systolic 120–162; BP diastolic 57–84; PULSE 86–138; RESP 12–23; TEMP 37.1–38.6; O2SAT 95–100; BMI 23.6
--- NOTE | 2024-01-08 03:21 | DI.RAD.S_ITS ---
PROCEDURE: XR CHEST 1V INDICATIONS: sepsis TECHNIQUE: One view of the chest was acquired. COMPARISON: [facility], CR, XR CHEST 1V, 12/20/2023, 13:34. FINDINGS: Surgical changes and devices: Left sided PICC line tip is in SVC. Lungs and pleura: Lungs are clear. No pleural effusions or pneumothorax. Mediastinum: Mediastinal contours appear normal. Heart size is normal. Bones and chest wall: No suspicious bony lesions. Overlying soft tissues appear unremarkable. IMPRESSION: No acute cardiopulmonary pathology. No discrepancies from preliminary reading. Dictated by: Fab Landon M.D. on 01/08/2024 at 8:04 Approved by: Fba Landon M.D. on 01/08/2024 at 8:05
--- NOTE | 2024-01-08 03:42 | ED.GENADULT ---
HPI - General Adult <Jessy Garcia MD - Last Filed: 01/12/24 07:48> General Chief complaint: Fever Stated complaint: high fever, surgical incision leakage Time Seen by Provider: 01/08/24 03:20 Source: patient and family Mode of arrival: Ambulatory History of Present Illness HPI narrative: 23-year-old woman with a history of mixed connective tissue disease recent extensive hospitalization for toxic shock syndrome and septic shock due to group a Streptococcus bacteremia presumably secondary to strep pharyngitis with hypotension, thrombocytopenia, acute kidney injury and acute metabolic encephalopathy she was eventually transferred to [facility] for higher level of care. She was eventually discharged on December 29. Final diagnosis was bacteremia due to Streptococcus with hyponatremia, mixed connective tissue disease, diarrhea, anemia cellulitis of the right arm with right elbow washout on December 24 with no clear evidence of purulent material. Infectious disease consultation time recommended continuing IV antibiotics in the form of ceftriaxone through January 18. Patient presents again to [facility] complaining of fever to 103 at home and concerns for purulent drainage from the right arm surgical site that had the washout on December 24. Left arm PICC site is also slightly reddened and swollen. Complains of dry mouth and throat. Not complaining of a sore throat. No flank pain. She notes that her left knee seems somewhat swollen and tender with walking but not warm to the touch. Related Data Home Medications Medication Instructions Recorded Confirmed No Known Home Medications 12/22/23 12/22/23 Allergies Allergy/AdvReac Type Severity Reaction Status Date / Time No Known Drug Allergies Allergy Verified 12/19/23 22:53 Review of Systems <Jessy Garcia MD - Last Filed: 01/12/24 07:48> Review of Systems Narrative: Pertinent positive and negative findings as per HPI Patient History <Jessy Garcia MD - Last Filed: 01/12/24 07:48> Medical History Mixed connective tissue disease Social History household members: family Smoking Status: Never smoker alcohol intake: current Smoking Status: Never smoker alcohol intake frequency: holidays/special occasions only Substance Use Type: does not use Exam <Jessy Garcia MD - Last Filed: 01/12/24 07:48> Initial Vital Signs Initial Vital Signs: Vital Signs Pulse Rate 127 H 01/08/24 03:05 Pulse Oximetry 98 01/08/24 03:05 General: Appears fatigued and to feel unwell but she is not in acute distress is able to cooperate completely and speak in full sentences HEENT: Dry mucous membranes, normal sclera with reactive pupils, no posterior pharyngeal erythema or exudate Neck: No cervical adenopathy Respiratory: Lungs are clear to auscultation, no wheezing no rales no rhonchi. Full and symmetrical air movement Cardiac: Tachycardic but otherwise Regular rate and rhythm no murmurs no bruits Abdomen: Soft, nontender, good bowel tones, no flank pain Skin: Warm and dry, she is some erythematous punctate lesions over her upper chest/throat area related to her mixed connective tissue disease. No other rashes or areas of cellulitis. Neurologic: Grossly neurologically intact with no obvious asymmetries or abnormalities Extremities: Right elbow with surgical incision and sutures still in place increased fullness throughout the joint with tenderness with joint manipulation. No overt drainage or redness. Left knee with synovial inflammation without overt effusion warmth or erythema. Psych: Cooperative, appropriate insight and affect <rEik Mistry DO - Last Filed: 01/08/24 15:56> Initial Vital Signs Initial Vital Signs: Vital Signs Pulse Rate 127 H 01/08/24 03:05 Pulse Oximetry 98 01/08/24 03:05 Course <Jessy Garcia MD - Last Filed: 01/12/24 07:48> Orders Ordered: Discontinued Medications Acetaminophen (Acetaminophen 325 Mg Tablet) 650 mg PO NOW ONE Stop: 01/08/24 08:07 Last Admin: 01/08/24 08:12 Dose: 650 mg Documented By: CARMELA Diphenhydramine HCl (Diphenhydramine 50 Mg/Ml Vial) 25 mg IV NOW ONE Stop: 01/08/24 07:56 Last Admin: 01/08/24 08:13 Dose: 25 mg Documented By: CARMELA Sodium Chloride (Normal Saline 0.9%) 1,000 mls @ 1,000 mls/hr IV BOLUS ONE Stop: 01/08/24 04:19 Last Infusion: 01/08/24 05:54 Dose: Infused Documented By: CARMELA(2) Admin: 01/08/24 04:35 Dose: 1,000 mls/hr Documented By: CARMELA(2) Clindamycin Phosphate (Cleocin) 600 mg in 50 mls @ 50 mls/hr IV Q6H ZULMA Last Infusion: 01/08/24 17:17 Dose: Infused Documented By: Admin: 01/08/24 16:14 Dose: 50 mls/hr Documented By: Infusion: 01/08/24 12:59 Dose: Infused Documented By: Admin: 01/08/24 12:07 Dose: 50 mls/hr Documented By: Infusion: 01/08/24 05:50 Dose: Infused Documented By: CARMELA(2) Admin: 01/08/24 04:35 Dose: 50 mls/hr Documented By: CARMELA(2) Ceftriaxone Sodium 2,000 mg/ (Sodium Chloride) 100 mls @ 200 mls/hr IV DAILY ZULMA Last Infusion: 01/08/24 12:03 Dose: Infused Documented By: Infusion: 01/08/24 10:25 Dose: 100 mls/hr Documented By: Infusion: 01/08/24 09:05 Dose: 0 mls/hr Documented By: Admin: 01/08/24 08:44 Dose: 200 mls/hr Documented By: CARMELA Vancomycin HCl/Dextrose (Vancomycin) 1,500 mg in 300 mls @ 150 mls/hr IV NOW ONE Stop: 01/08/24 06:59 Last Infusion: 01/08/24 08:48 Dose: Infused Documented By: Infusion: 01/08/24 08:11 Dose: 50 mls/hr Documented By: Admin: 01/08/24 05:53 Dose: 150 mls/hr Documented By: CARMELA(2) Vancomycin HCl/Dextrose (Vancomycin) 1,500 mg in 300 mls @ 150 mls/hr IV Q8H ZULMA Vancomycin HCl (Vancomycin) 1,250 mg in 250 mls @ 200 mls/hr IV Q8H ZULMA Last Infusion: 01/08/24 15:02 Dose: Infused Documented By: Admin: 01/08/24 14:07 Dose: 200 mls/hr Documented By: ROHITH Acetaminophen (Ofirmev) 1,000 mg in 100 mls @ 400 mls/hr IV NOW ONE Stop: 01/08/24 15:42 Last Infusion: 01/08/24 15:53 Dose: Infused Documented By: Admin: 01/08/24 15:36 Dose: 400 mls/hr Documented By: TANK Sodium Chloride (Normal Saline 0.9%) 1,000 mls @ 125 mls/hr IV CONT ZULMA Last Infusion: 01/08/24 17:18 Dose: 0 mls/hr Documented By: Admin: 01/08/24 16:13 Dose: 125 mls/hr Documented By: ROHITH Ondansetron HCl (Ondansetron 4 Mg/2 Ml Inj) 4 mg IV NOW ONE Stop: 01/08/24 15:10 Last Admin: 01/08/24 15:12 Dose: 4 mg Documented By: ROHITH Vancomycin HCl (Vancomycin Per Pharmacy) 1 request MISC NOW ONE Stop: 01/08/24 04:04 Last Admin: 01/08/24 06:09 Dose: Not Given Documented By: CARMELA(2) Vancomycin HCl (Vancomycin Trough) 1 request MIS 0530 ONE Stop: 01/09/24 05:31 Vancomycin HCl (Vancomycin Peak) 1 request MISC 0830 ONE Stop: 01/09/24 08:31 Vital Signs Vital signs: Vital Signs - 8 hr 01/08/24 08:00 01/08/24 08:00 01/08/24 08:30 Temperature Pulse Rate 99 H Respiratory Rate Blood Pressure 131/60 137/77 Pulse Oximetry 97 01/08/24 08:30 01/08/24 09:00 01/08/24 09:00 Temperature 99.7 F H Pulse Rate 98 H 94 H Respiratory Rate Blood Pressure 120/58 L Pulse Oximetry 98 98 01/08/24 09:30 01/08/24 09:30 01/08/24 10:00 Temperature Pulse Rate 88 Respiratory Rate 16 Blood Pressure 132/63 138/63 Pulse Oximetry 97 01/08/24 10:00 01/08/24 10:30 01/08/24 10:30 Temperature Pulse Rate 90 89 Respiratory Rate Blood Pressure 148/73 H Pulse Oximetry 96 96 01/08/24 10:50 01/08/24 11:00 01/08/24 11:00 Temperature 99.2 F Pulse Rate 86 Respiratory Rate Blood Pressure 154/76 H Pulse Oximetry 98 01/08/24 11:30 01/08/24 11:30 01/08/24 11:51 Temperature 98.7 F Pulse Rate 89 Respiratory Rate Blood Pressure 162/76 H Pulse Oximetry 97 01/08/24 11:59 01/08/24 11:59 01/08/24 12:00 Temperature Pulse Rate 99 H 98 H Respiratory Rate Blood Pressure 122/62 Pulse Oximetry 99 99 01/08/24 12:01 01/08/24 12:01 01/08/24 12:30 Temperature Pulse Rate 98 H 108 H Respiratory Rate Blood Pressure 120/64 Pulse Oximetry 98 100 01/08/24 12:30 01/08/24 13:00 01/08/24 13:00 Temperature Pulse Rate 107 H Respiratory Rate Blood Pressure 151/84 H 122/63 Pulse Oximetry 100 01/08/24 13:30 01/08/24 13:30 01/08/24 14:00 Temperature Pulse Rate 96 H 101 H Respiratory Rate 15 23 Blood Pressure 125/68 Pulse Oximetry 96 95 01/08/24 14:00 01/08/24 14:30 01/08/24 14:30 Temperature Pulse Rate 100 H Respiratory Rate 12 Blood Pressure 130/65 134/67 Pulse Oximetry 96 01/08/24 15:00 01/08/24 15:00 Temperature Pulse Rate 110 H Respiratory Rate 20 Blood Pressure 135/73 Pulse Oximetry 99 <Erik Mistry DO - Last Filed: 01/08/24 15:56> Orders Ordered: Discontinued Medications Acetaminophen (Acetaminophen 325 Mg Tablet) 650 mg PO NOW ONE Stop: 01/08/24 08:07 Last Admin: 01/08/24 08:12 Dose: 650 mg Documented By: CARMELA Diphenhydramine HCl (Diphenhydramine 50 Mg/Ml Vial) 25 mg IV NOW ONE Stop: 01/08/24 07:56 Last Admin: 01/08/24 08:13 Dose: 25 mg Documented By: CARMELA Sodium Chloride (Normal Saline 0.9%) 1,000 mls @ 1,000 mls/hr IV BOLUS ONE Stop: 01/08/24 04:19 Last Infusion: 01/08/24 05:54 Dose: Infused Documented By: CARMELA(2) Admin: 01/08/24 04:35 Dose: 1,000 mls/hr Documented By: CARMELA(2) Clindamycin Phosphate (Cleocin) 600 mg in 50 mls @ 50 mls/hr IV Q6H [facility] Last Infusion: 01/08/24 17:17 Dose: Infused Documented By: Admin: 01/08/24 16:14 Dose: 50 mls/hr Documented By: Infusion: 01/08/24 12:59 Dose: Infused Documented By: Admin: 01/08/24 12:07 Dose: 50 mls/hr Documented By: Infusion: 01/08/24 05:50 Dose: Infused Documented By: CARMELA(2) Admin: 01/08/24 04:35 Dose: 50 mls/hr Documented By: CARMELA(2) Ceftriaxone Sodium 2,000 mg/ (Sodium Chloride) 100 mls @ 200 mls/hr IV DAILY ZULMA Last Infusion: 01/08/24 12:03 Dose: Infused Documented By: Infusion: 01/08/24 10:25 Dose: 100 mls/hr Documented By: Infusion: 01/08/24 09:05 Dose: 0 mls/hr Documented By: Admin: 01/08/24 08:44 Dose: 200 mls/hr Documented By: CARMELA Vancomycin HCl/Dextrose (Vancomycin) 1,500 mg in 300 mls @ 150 mls/hr IV NOW ONE Stop: 01/08/24 06:59 Last Infusion: 01/08/24 08:48 Dose: Infused Documented By: Infusion: 01/08/24 08:11 Dose: 50 mls/hr Documented By: Admin: 01/08/24 05:53 Dose: 150 mls/hr Documented By: CARMELA(2) Vancomycin HCl/Dextrose (Vancomycin) 1,500 mg in 300 mls @ 150 mls/hr IV Q8H ZULMA Vancomycin HCl (Vancomycin) 1,250 mg in 250 mls @ 200 mls/hr IV Q8H [facility] Last Infusion: 01/08/24 15:02 Dose: Infused Documented By: Admin: 01/08/24 14:07 Dose: 200 mls/hr Documented By: ROHITH Acetaminophen (Ofirmev) 1,000 mg in 100 mls @ 400 mls/hr IV NOW ONE Stop: 01/08/24 15:42 Last Infusion: 01/08/24 15:53 Dose: Infused Documented By: Admin: 01/08/24 15:36 Dose: 400 mls/hr Documented By: KLS Sodium Chloride (Normal Saline 0.9%) 1,000 mls @ 125 mls/hr IV CONT ZULMA Last Infusion: 01/08/24 17:18 Dose: 0 mls/hr Documented By: Admin: 01/08/24 16:13 Dose: 125 mls/hr Documented By: ROHITH Ondansetron HCl (Ondansetron 4 Mg/2 Ml Inj) 4 mg IV NOW ONE Stop: 01/08/24 15:10 Last Admin: 01/08/24 15:12 Dose: 4 mg Documented By: ROHITH Vancomycin HCl (Vancomycin Per Pharmacy) 1 request MISC NOW ONE Stop: 01/08/24 04:04 Last Admin: 01/08/24 06:09 Dose: Not Given Documented By: CARMELA(2) Vancomycin HCl (Vancomycin Trough) 1 request MIS 0530 ONE Stop: 01/09/24 05:31 Vancomycin HCl (Vancomycin Peak) 1 request MISC 0830 ONE Stop: 01/09/24 08:31 Vital Signs Vital signs: Vital Signs - 8 hr 01/08/24 08:00 01/08/24 08:00 01/08/24 08:30 Temperature Pulse Rate 99 H Respiratory Rate Blood Pressure 131/60 137/77 Pulse Oximetry 97 01/08/24 08:30 01/08/24 09:00 01/08/24 09:00 Temperature 99.7 F H Pulse Rate 98 H 94 H Respiratory Rate Blood Pressure 120/58 L Pulse Oximetry 98 98 01/08/24 09:30 01/08/24 09:30 01/08/24 10:00 Temperature Pulse Rate 88 Respiratory Rate 16 Blood Pressure 132/63 138/63 Pulse Oximetry 97 01/08/24 10:00 01/08/24 10:30 01/08/24 10:30 Temperature Pulse Rate 90 89 Respiratory Rate Blood Pressure 148/73 H Pulse Oximetry 96 96 01/08/24 10:50 01/08/24 11:00 01/08/24 11:00 Temperature 99.2 F Pulse Rate 86 Respiratory Rate Blood Pressure 154/76 H Pulse Oximetry 98 01/08/24 11:30 01/08/24 11:30 01/08/24 11:51 Temperature 98.7 F Pulse Rate 89 Respiratory Rate Blood Pressure 162/76 H Pulse Oximetry 97 01/08/24 11:59 01/08/24 11:59 01/08/24 12:00 Temperature Pulse Rate 99 H 98 H Respiratory Rate Blood Pressure 122/62 Pulse Oximetry 99 99 01/08/24 12:01 01/08/24 12:01 01/08/24 12:30 Temperature Pulse Rate 98 H 108 H Respiratory Rate Blood Pressure 120/64 Pulse Oximetry 98 100 01/08/24 12:30 01/08/24 13:00 01/08/24 13:00 Temperature Pulse Rate 107 H Respiratory Rate Blood Pressure 151/84 H 122/63 Pulse Oximetry 100 01/08/24 13:30 01/08/24 13:30 01/08/24 14:00 Temperature Pulse Rate 96 H 101 H Respiratory Rate 15 23 Blood Pressure 125/68 Pulse Oximetry 96 95 01/08/24 14:00 01/08/24 14:30 01/08/24 14:30 Temperature Pulse Rate 100 H Respiratory Rate 12 Blood Pressure 130/65 134/67 Pulse Oximetry 96 01/08/24 15:00 01/08/24 15:00 Temperature Pulse Rate 110 H Respiratory Rate 20 Blood Pressure 135/73 Pulse Oximetry 99 Medical Decision Making <Jessy Garcia MD - Last Filed: 01/12/24 07:48> Lab Data 01/08/24 03:40 01/08/24 03:40 Labs: Lab Results 01/08/24 01/08/24 Range/Units 03:40 06:00 WBC 3.1 L (4.5-11.0) X10^3/uL RBC 3.60 L (4.0-5.2) X10^6/uL Hgb 8.5 L (12.0-16.0) g/dL Hct 26.3 L (36-46) % MCV 72.9 L (80-100) fL MCH 23.5 L (26-34) PG MCHC 32.3 (30-36) % RDW 22.1 H (11.6-14.8) % Plt Count 416 H (150-400) X10^3/uL Neut % (Auto) 54.0 (50-75) % Lymph % (Auto) 35.6 (25-40) % Wise % (Auto) 9.3 (3-14) % Eos % (Auto) 0.2 L (2-4) % Baso % (Auto) 0.9 (0-2) % Neut # (Auto) 1700 (6456-6527) /uL Lymph # (Auto) 1100 (7939-0919) /uL Wise # (Auto) 300 (0-900) /uL Eos # (Auto) 0 (0-450) /uL Baso # (Auto) 0 (0-100) /uL Platelet Estimate Increased on smear RBC Morphology See below Anisocytosis 2+ H Microcytosis 2+ H Macrocytosis 1+ H Stomatocytes 1+ H ESR > 140 H (0-20) MM/HR Sodium 136 L (137-145) mmol/L Potassium 3.7 (3.4-5.1) mmol/L Chloride 104 (98-107) mmol/L Carbon Dioxide 23 (22-32) mmol/L BUN 3 L (7-17) mg/dL Creatinine 0.45 L (0.52-1.04) mg/dL Estimated GFR > 60 (>60) mL/min BUN/Creatinine Ratio 6.7 (6-22) Glucose 98 (70-100) mg/dL Lactate 0.8 (0.7-2.1) mmol/L Calcium 8.3 L (8.4-10.2) mg/dL Total Bilirubin 0.4 (0.2-1.3) mg/dL AST 48 H (14-36) IU/L ALT 21 (<35) IU/L Alkaline Phosphatase 108 (38-126) U/L C-Reactive Protein 1.9 H (<1.0) mg/dL Total Protein 9.0 H (6.3-8.2) g/dL Albumin 3.6 (3.5-5.0) g/dL Globulin 5.4 H (1.7-4.1) g/dL Albumin/Globulin Ratio 0.7 L (1.0-2.8) Urine Color Yellow Urine Appearance Clear Urine pH 7.0 (4.5-8.0) Ur Specific Dana <=1.005 (1.000-1.035) Urine Protein Negative (Negative) Urine Glucose (UA) Negative (Negative) g/dL Urine Ketones Negative (NEGATIVE) Urine Occult Blood Negative (Negative) Urine Nitrate Negative (Negative) Urine Bilirubin Negative (NEGATIVE) Urine Urobilinogen 0.2 (0.2) E.U./dL Ur Leukocyte Esterase Negative (NEGATIVE) Urine RBC None seen (0-5/HPF) Urine WBC None seen (0-5/HPF) Ur Squamous Epith Cells None seen (0-5/HPF) Urine Bacteria None seen (None) Ur Culture Indicated? Cult not indicated Vol Urine Centrifuged 10ml (spun) MDM Narrative Medical decision making narrative: CC: Fever, increased swelling to right elbow Complicating co-morbidities: Mixed connective tissue disorder, currently on parenteral antibiotics supposed to be continuing through January 18 after complicated group a strep sepsis and right elbow septic joint Data collected from: patient, mother Medical records reviewed: Hospitalization starting on December [address] [facility] with transfer to [facility] and discharge on December 29 are all reviewed. Records have been obtained from [facility] Differential considered: Sepsis, recurrent septic joint, mixed connective tissue complications, sepsis secondary to PICC line infection Exam documented above, pertinent findings include: Patient appears to not feel well, she is febrile and tachycardic but she has not hypotensive. She is alert and appropriate. She does not have significant edema. No murmurs pulmonary exam is unremarkable. Mild erythema around the left PICC line which will be pulled with tip of the line cultured. Right elbow with increasing fullness slight warmth no redness but tenderness with joint movement. Left knee with active synovitis but does not feel like acute effusion. No skin additional findings to suggest cellulitis Lab Test results independently reviewed as above. Pertinent findings: CBC shows a low white count at 3.1 chronic stable anemia and platelets 416 Chemistries show appropriate renal function with creatinine at 0.45. Normal electrolytes AST is minimally elevated at 4.8 Lactic is not elevated Sed rate is elevated at greater than 140 Imaging studies independently reviewed: Chest x-ray does not show consolidated findings CT of the elbow: Consultations: Call to [facility] to discuss possibility of transfer given complexity of previous issues and likely need for 2nd washout of her right elbow 438am Discussed with Dr Sierra Lazo, [facility] hospitalist. Agrees that transfer is likely going to be very appropriate. We will need orthopedic consult on there and regarding the probable washout needed for the right elbow again. Reviewed findings including antibiotic choices, recent blood suggesting that she has not currently septic. She will be appropriate for a floor bed admission. We will wait back to hear from bed staffing in bed availability to figure at time of transfer Treatments: Peripheral line is placed, we will continue Q 24 hour ceftriaxone this dose is due at 8:30 a.m. or 9 this morning. Will add vancomycin and clindamycin as has been initially recommended by Infectious Disease with her transfer to [facility] on December 23. Re-evaluations: Discussion: <Erik Mistry DO - Last Filed: 01/08/24 15:56> Lab Data Labs: Lab Results 01/08/24 01/08/24 Range/Units 03:40 06:00 WBC 3.1 L (4.5-11.0) X10^3/uL RBC 3.60 L (4.0-5.2) X10^6/uL Hgb 8.5 L (12.0-16.0) g/dL Hct 26.3 L (36-46) % MCV 72.9 L (80-100) fL MCH 23.5 L (26-34) PG MCHC 32.3 (30-36) % RDW 22.1 H (11.6-14.8) % Plt Count 416 H (150-400) X10^3/uL Neut % (Auto) 54.0 (50-75) % Lymph % (Auto) 35.6 (25-40) % Wise % (Auto) 9.3 (3-14) % Eos % (Auto) 0.2 L (2-4) % Baso % (Auto) 0.9 (0-2) % Neut # (Auto) 1700 (2719-0529) /uL Lymph # (Auto) 1100 (6806-9122) /uL Wise # (Auto) 300 (0-900) /uL Eos # (Auto) 0 (0-450) /uL Baso # (Auto) 0 (0-100) /uL Platelet Estimate Increased on smear RBC Morphology See below Anisocytosis 2+ H Microcytosis 2+ H Macrocytosis 1+ H Stomatocytes 1+ H ESR > 140 H (0-20) MM/HR Sodium 136 L (137-145) mmol/L Potassium 3.7 (3.4-5.1) mmol/L Chloride 104 (98-107) mmol/L Carbon Dioxide 23 (22-32) mmol/L BUN 3 L (7-17) mg/dL Creatinine 0.45 L (0.52-1.04) mg/dL Estimated GFR > 60 (>60) mL/min BUN/Creatinine Ratio 6.7 (6-22) Glucose 98 (70-100) mg/dL Lactate 0.8 (0.7-2.1) mmol/L Calcium 8.3 L (8.4-10.2) mg/dL Total Bilirubin 0.4 (0.2-1.3) mg/dL AST 48 H (14-36) IU/L ALT 21 (<35) IU/L Alkaline Phosphatase 108 (38-126) U/L C-Reactive Protein 1.9 H (<1.0) mg/dL Total Protein 9.0 H (6.3-8.2) g/dL Albumin 3.6 (3.5-5.0) g/dL Globulin 5.4 H (1.7-4.1) g/dL Albumin/Globulin Ratio 0.7 L (1.0-2.8) Urine Color Yellow Urine Appearance Clear Urine pH 7.0 (4.5-8.0) Ur Specific Dana <=1.005 (1.000-1.035) Urine Protein Negative (Negative) Urine Glucose (UA) Negative (Negative) g/dL Urine Ketones Negative (NEGATIVE) Urine Occult Blood Negative (Negative) Urine Nitrate Negative (Negative) Urine Bilirubin Negative (NEGATIVE) Urine Urobilinogen 0.2 (0.2) E.U./dL Ur Leukocyte Esterase Negative (NEGATIVE) Urine RBC None seen (0-5/HPF) Urine WBC None seen (0-5/HPF) Ur Squamous Epith Cells None seen (0-5/HPF) Urine Bacteria None seen (None) Ur Culture Indicated? Cult not indicated Vol Urine Centrifuged 10ml (spun) MDM Narrative Medical decision making narrative: CC: Fever, increased swelling to right elbow Complicating co-morbidities: Mixed connective tissue disorder, currently on parenteral antibiotics supposed to be continuing through January 18 after complicated group a strep sepsis and right elbow septic joint Data collected from: patient, mother Medical records reviewed: Hospitalization starting on December [address] [facility] with transfer to [facility] and discharge on December 29 are all reviewed. Records have been obtained from [facility] Differential considered: Sepsis, recurrent septic joint, mixed connective tissue complications, sepsis secondary to PICC line infection Exam documented above, pertinent findings include: Patient appears to not feel well, she is febrile and tachycardic but she has not hypotensive. She is alert and appropriate. She does not have significant edema. No murmurs pulmonary exam is unremarkable. Mild erythema around the left PICC line which will be pulled with tip of the line cultured. Right elbow with increasing fullness slight warmth no redness but tenderness with joint movement. Left knee with active synovitis but does not feel like acute effusion. No skin additional findings to suggest cellulitis Lab Test results independently reviewed as above. Pertinent findings: CBC shows a low white count at 3.1 chronic stable anemia and platelets 416 Chemistries show appropriate renal function with creatinine at 0.45. Normal electrolytes AST is minimally elevated at 4.8 Lactic is not elevated Sed rate is elevated at greater than 140 Imaging studies independently reviewed: Chest x-ray does not show consolidated findings CT of the elbow: Consultations: Call to [facility] to discuss possibility of transfer given complexity of previous issues and likely need for 2nd washout of her right elbow 438am Discussed with Dr Sierra Lazo, [facility] hospitalist. Agrees that transfer is likely going to be very appropriate. We will need orthopedic consult on there and regarding the probable washout needed for the right elbow again. Reviewed findings including antibiotic choices, recent blood suggesting that she has not currently septic. She will be appropriate for a floor bed admission. We will wait back to hear from bed staffing in bed availability to figure at time of transfer Treatments: Peripheral line is placed, we will continue Q 24 hour ceftriaxone this dose is due at 8:30 a.m. or 9 this morning. Will add vancomycin and clindamycin as has been initially recommended by Infectious Disease with her transfer to [facility] on December 23. Re-evaluations: Discussion: Dr Mistry: Received turned over. Review patient's history and physical exam. Patient has been accepted by providers at [facility]. Patient is stable for transport. Patient has received antibiotics. Discharge Plan Departure Patient Disposition: [facility] Clinical Impression: Infected surgical wound Prescriptions: No Action No Known Home Medications Referrals: Courtney Sosa ARNP [Primary Care Provider] -
--- NOTE | 2024-01-08 04:02 | DI.CT.S_ITS ---
PROCEDURE: CT ELBOW RIGH WITH CON INDICATIONS: drainage from incision site TECHNIQUE: Noncontrast 1-1.5 mm axial sections were acquired through the elbow joint, with coronal and sagittal reformats. COMPARISON: None. FINDINGS: Image quality: Excellent. Bones: Alignment of right elbow is anatomic. No acute fracture or dislocation. No suspicious bony lesions. Soft tissues: There is mild subcutaneous fat stranding over dorsal and medial aspect of distal forearm extending to dorsal and lateral aspect of elbow joint. There is also similar soft tissue changes in dorsal aspect of proximal forearm with mild overlying skin thickening. There is mild heterogeneous contrast enhancement in dorsal elbow soft tissue and triceps tendon near its insertion on proximal olecranon. No discrete drainable peripherally enhancing abscess collection is noted. No enhancing soft tissue mass. No abnormal soft tissue calcifications. No significant joint effusion or calcified intra-articular loose body is seen. IMPRESSION: 1. Suggestion of cellulitis in distal upper arm, elbow wall and dorsal aspect of proximal forearm. Suggestion of tendinosis and myositis involving distal triceps tendon and muscle near its insertion on proximal olecranon. No discrete drainable abscess collection. 2. No significant elbow joint effusion or calcified intra-articular loose bodies. 3. No full-thickness elbow tendon rupture. 4. No fracture or dislocation. No evidence of osteomyelitis. No significant discrepancies from preliminary reading. Dictated by: Fab Landon M.D. on 01/08/2024 at 8:07 Approved by: Fab Landon M.D. on 01/08/2024 at 8:11
[2024-01-08 04:11] LABS: Add Manual Diff / Slide Review NO; Basophils Absolute Auto 0 /uL (0-100); Basophils Percent Auto 0.9 % (0-2); Eosinophils Absolute Auto 0 /uL (0-450); Eosinophils Percent Auto 0.2 % (2-4); Hematocrit 26.3 % (36-46); Hemoglobin 8.5 g/dL (12.0-16.0); Lymphocytes Absolute Auto 1100 /uL (1100-4500); Lymphocytes Percent Auto 35.6 % (25-40); Mean Corpuscular HGB Conc 32.3 % (30-36); Mean Corpuscular Hemoglobin 23.5 PG (26-34); Mean Corpuscular Volume 72.9 fL (80-100); Monocytes Absolute Auto 300 /uL (0-900); Monocytes Percent Auto 9.3 % (3-14); Neutrophils Absolute Auto 1700 /uL (1500-7000); Platelet Count 416 X10^3/uL (150-400); Red Cell Distribution Width 22.1 % (11.6-14.8); White Blood Cell Count 3.1 X10^3/uL (4.5-11.0)
[2024-01-08 04:23] LABS: Alanine Aminotransferase 21 IU/L (<35); Albumin 3.6 g/dL (3.5-5.0); Albumin Globulin Ratio 0.7 (1.0-2.8); Alkaline Phosphatase 108 U/L (38-126); Aspartate Aminotransferase 48 IU/L (14-36); BUN Creatinine Ratio 6.7 (6-22); Bilirubin Total 0.4 mg/dL (0.2-1.3); Blood Urea Nitrogen 3 mg/dL (7-17); Calcium 8.3 mg/dL (8.4-10.2); Carbon Dioxide 23 mmol/L (22-32); Chloride 104 mmol/L (98-107); Estimated Glomerular Filt Rate > 60 mL/min (>60); Globulin 5.4 g/dL (1.7-4.1); Glucose 98 mg/dL (70-100); HEMOLYSIS < 15 (0-50); Lactate (Lactic Acid) 0.8 mmol/L (0.7-2.1); Potassium 3.7 mmol/L (3.4-5.1); Sodium 136 mmol/L (137-145)
[2024-01-08] MEDS: CLINDAMYCIN 600 MG/50 ML PIGGYBACK 50 MG IV ×3 (04:35→16:14)
[2024-01-08] MEDS: SODIUM CHLORIDE 0.9% 1,000 ML 1000 ML IV (04:35)
--- NOTE | 2024-01-08 04:49 | PC.NURSE ---
L upper arm PICC line removed per protocol and manual pressure applied until hemostasis achieved. Pt tolerated well. Occlusive dressing applied. Tip sent for culture per order.
[2024-01-08 04:50] LABS: Erythrocyte Sedimentation Rate > 140 MM/HR (0-20)
[2024-01-08 05:04] LABS: Anisocytosis 2+; Macrocytosis 1+; Microcytosis 2+; Platelet Estimate Increased on smear; Stomatocytes 1+
[2024-01-08 05:43] LABS: C-Reactive Protein Quant 1.9 mg/dL (<1.0)
[2024-01-08] MEDS: VANCOMYCIN 1,500 MG/300 ML PIGGYBACK 150 MG IV (05:53)
[2024-01-08 06:17] LABS: Appearance Urine UA CLEAR; Bilirubin Urine UA NEGATIVE (NEGATIVE); Color Urine UA YELLOW; Glucose Urine UA NEGATIVE (Negative); Ketones Urine UA NEGATIVE (NEGATIVE); Leukocyte Esterase Urine UA NEGATIVE (NEGATIVE); Nitrite Urine UA NEGATIVE (Negative); Occult Blood Urine UA NEGATIVE (Negative); Protein Urine UA NEGATIVE (Negative); Specific Gravity Urine UA <=1.005 (1.000-1.035); Urobilinogen Urine UA 0.2 E.U./dL (0.2)
[2024-01-08 06:26] LABS: Bacteria Urine None Seen; RBC Urine None Seen (0-5/HPF); Squamous Epithelial Cell Urine None Seen (0-5/HPF); Urine Volume 10mL (spun); WBC Urine None Seen (0-5/HPF)
[2024-01-08 06:27] LABS: Culture Indicated Urine Cult Not Indicated
--- NOTE | 2024-01-08 07:41 | PC.NURSE ---
PICC line has been removed; pt currently receiving Vancomycin. Respirations regular and unlabored. No acute distress noted.
--- NOTE | 2024-01-08 07:56 | PC.NURSE ---
Pt called out for itchy scalp. RN came to bedside and pt noted to have red spots on face, arms, chest. Pt denies throat closing; pt able to manage secretions. MD Mistry made aware. Vancomycin infusion slowed down per MD request.
[2024-01-08] MEDS: ACETAMINOPHEN 325 MG TABLET 650 MG PO (08:12)
[2024-01-08] MEDS: diphenhydrAMINE 50 MG/ML VIAL 25 MG IV (08:13)
[2024-01-08] MEDS: cefTRIAXone 2,000 MG in SODIUM CHLORIDE 0.9% 100 ML 200 MG IV (08:44)
--- NOTE | 2024-01-08 09:04 | PC.NURSE ---
Pt c/o feeling flushed and pins/needles head to toe. Pt fever appears to have gone down; pt is not as red in the face and chest as before. MD notified. MD stated to pause the Ceftriaxone.
--- NOTE | 2024-01-08 09:36 | PC.NURSE ---
Pt reports little change in pins/needles sensation and still feels hot/flushed. MD notified. Ceftriaxone remains paused. MD Mistry stated to reassess again in 30 min.
--- NOTE | 2024-01-08 12:43 | PC.NURSE ---
Temp: 98.8 oral
[2024-01-08] MEDS: VANCOMYCIN 1,250 MG/250 ML PIGGYBACK 200 MG IV (14:07)
--- NOTE | 2024-01-08 15:03 | PC.NURSE ---
patient complains of nausea, chills and has a fever of 102.0 Her ABX were stopped and the barehugger was turned off. MD notified, stopped the abx as per provider order. Active warming stopped. Patient complains that her ears are hurting around her mastoid that has been increasing more in the last few days and her chills are getting worse. Provider notified. will continue to monitor
[2024-01-08] MEDS: ONDANSETRON 4 MG/2 ML INJ IV (15:12)
--- NOTE | 2024-01-08 15:17 | PC.NURSE ---
ears bilaterally appear to be clear. no drainage. no redness. tympanic membrane appears to be in tact. no blood or clear fluid
[2024-01-08] MEDS: ACETAMINOPHEN IV 1,000 MG/100 ML VIAL 400 MG IV (15:36)
[2024-01-08] MEDS: SODIUM CHLORIDE 0.9% 1,000 ML 125 ML IV (16:13)
--- NOTE | 2024-01-08 16:20 | PC.NURSE ---
Temp after 103.2 after apap at 1621. provider aware at 1621. will continue to monitor
--- NOTE | 2024-01-08 17:24 | PC.NURSE ---
Patient temp down to 100.4 oral prior to transfer. Patient appeared not to be in distress.
== END 2024-01-08 17:20 | disposition short-term general hospital (02) ==
PROVIDERS: Emergency Medicine; Emergency Provider Emergency Medicine; Family Provider Physician Assistant Medical; PCP Nurse Practitioner Family
DX: T81.49XA Infection following a procedure, other surgical site, initial encounter (principal); R50.9 Fever, unspecified
CPT/HCPCS: 36415; 71045; 73201; 80053; 81001; 83605; 85025; 85651; 86140; 87040; 87070; 87205; 96365; 96366; 96367; 96375; 99284; J0136; J0696; J1200; J2405; Q9967

== ENCOUNTER → 2024-01-25 08:24 | Outpatient (CLI) | payer OTHER, MEDICAID, SELFPAY ==
[2023-12-20 10:20] VITALS: BMI 24.4
[2024-01-25 09:25] LABS: Basophils Absolute Auto 100 /uL (0-100); Basophils Percent Auto 1.8 % (0-2); Eosinophils Absolute Auto 100 /uL (0-450); Eosinophils Percent Auto 3.3 % (2-4); Hematocrit 32.8 % (36-46); Hemoglobin 10.6 g/dL (12.0-16.0); Lymphocytes Absolute Auto 1100 /uL (1100-4500); Lymphocytes Percent Auto 25.2 % (25-40); Mean Corpuscular HGB Conc 32.3 % (30-36); Mean Corpuscular Volume 77.5 fL (80-100); Monocytes Absolute Auto 400 /uL (0-900); Neutrophils Absolute Auto 2600 /uL (1500-7000); Neutrophils Percent Auto 59.7 % (50-75); Platelet Count 398 X10^3/uL (150-400); Red Blood Cell Count 4.24 X10^6/uL (4.0-5.2); Red Cell Distribution Width 26.6 % (11.6-14.8); White Blood Cell Count 4.4 X10^3/uL (4.5-11.0)
[2024-01-25 09:26] LABS: Add Manual Diff / Slide Review SLIDE REVIEW
[2024-01-25 09:42] LABS: Alanine Aminotransferase 17 IU/L (<35); Albumin 4.5 g/dL (3.5-5.0); Albumin Globulin Ratio 0.8 (1.0-2.8); Alkaline Phosphatase 79 U/L (38-126); Aspartate Aminotransferase 36 IU/L (14-36); BUN Creatinine Ratio 23.4 (6-22); Bilirubin Total 0.5 mg/dL (0.2-1.3); Blood Urea Nitrogen 11 mg/dL (7-17); Carbon Dioxide 21 mmol/L (22-32); Chloride 105 mmol/L (98-107); Cholesterol 194 mg/dL (140-199); Estimated Glomerular Filt Rate > 60 mL/min (>60); Globulin 5.8 g/dL (1.7-4.1); Glucose 88 mg/dL (70-100); HDL Cholesterol 44 mg/dL (40-60); HEMOLYSIS < 15 (0-50); LDL Cholesterol Calculated 129 mg/dL (<100); Potassium 4.6 mmol/L (3.4-5.1); Sodium 139 mmol/L (137-145); Total Protein 10.3 g/dL (6.3-8.2); Triglycerides 105 mg/dL (35-150)
[2024-01-25 09:46] LABS: High Sensitivity CRP - Cardiac 2.8 mg/L (1.0-3.0)
[2024-01-25 09:56] LABS: Vitamin D 25 Hydroxy (D3) 32.3 ng/mL (30.0-100.0)
[2024-01-25 10:12] LABS: Thyroid Stimulating Hormone 2.25 uIU/mL (0.47-4.68)
[2024-01-25 10:17] LABS: Ferritin 76 ng/mL (6-137)
[2024-01-25 13:46] LABS: Anisocytosis 2+; Microcytosis 1+
== END ==
PROVIDERS: Family Provider Physician Assistant Medical; PCP Nurse Practitioner Family
DX: Z00.00 Encounter for general adult medical examination without abnormal findings (principal); I73.00 Raynaud's syndrome without gangrene; E55.9 Vitamin D deficiency, unspecified
CPT/HCPCS: 36415; 80053; 80061; 82306; 82728; 84443; 85025; 86140

== ENCOUNTER → 2024-05-05 11:55 | Outpatient (CLI) | payer OTHER, SELFPAY ==
[2023-12-20 10:20] VITALS: BMI 24.4
--- NOTE | 2024-05-05 11:56 | DI.US.S_ITS ---
PROCEDURE: US PELVIC COMPLETE INDICATIONS: PELVIC PAIN, MENORRHAGIA TECHNIQUE: Real-time scanning was performed of the pelvic organs, with image documentation. Additional endovaginal scanning was declined by the patient. COMPARISON: None. FINDINGS: Uterus: Uterus is anteverted and normal in size at 8.3 x 3.8 x 5.5 cm. The myometrium is homogeneous. The endometrium measures 11.0 mm combined thickness. Ovaries: The ovaries are not visualized due to bowel gas and cannot be evaluated.. Other: No pathologic free abdominal or pelvic fluid. IMPRESSION: Sonographically normal uterus. Ovaries not visualized and cannot be evaluated. Dictated by: Shelley Johnson MD, PhD on 05/05/2024 at 16:05 Approved by: Shelley Johnson MD, PhD on 05/05/2024 at 16:07
== END ==
PROVIDERS: Family Provider Physician Assistant Medical; PCP Nurse Practitioner Family; Referring Provider Naturopath; Visit Provider Naturopath
DX: R10.2 Pelvic and perineal pain (principal); N92.0 Excessive and frequent menstruation with regular cycle
CPT/HCPCS: 76856